=== PATIENT | male | born 1980 | race Caucasian/White ===

== ENCOUNTER 2017-02-06 14:36 | Inpatient (IN) ==
[2017-02-06] MEDS ORDERED: ONDANSETRON 4 MG/2 ML VIAL IV ONE (14:54)
[2017-02-06] MEDS ORDERED: HYDROmorphone 2 MG/ML SYRINGE IV SCH ×2 (15:00→16:30)
[2017-02-06 15:49] LABS: Basophils # (Auto) 0.1 K/mcL (0.0-0.3); Basophils % (Auto) 0.9 % (0.0-2.0); Eosinophils # (Auto) 0.3 K/mcL (0.0-0.7); Eosinophils % (Auto) 1.7 % (0.0-7.0); Granulocytes % (Auto) 71.8 % (38.0-78.0); Lymphocytes % (Auto) 18.3 % (15.5-49.0); Mean Cell Volume 81.6 fL (80.0-100.0); Mean Corpuscular HGB Conc 33.3 g/dL (31.0-36.0); Mean Corpuscular Hemoglobin 27.2 pg (26.0-34.0); Monocytes # (Auto) 1.2 K/mcL (0.1-0.9); Monocytes % (Auto) 7.3 % (1.0-12.0); Platelet Count 334 K/mcL (140-440); RBC 4.41 M/mcL (4.50-5.90); Red Cell Distribution Width 13.2 % (11.5-14.5)
--- NOTE | 2017-02-06 15:50 | Emergency Department Note ---
Lower Extremity Injury HPI <Elizabeth Telles - Last Filed: 02/06/17 17:16> - General Source: patient Mode of arrival: ambulatory Limitations: no limitations <Adilia Sanchez - Last Filed: 02/07/17 11:44> - General Chief Complaint: Extremity Injury, Lower Stated Complaint: right foot infection Time Seen by Provider: 02/06/17 14:39 - History of Present Illness HPI Narrative: 36-year-old male presents with diabetic foot ulcers to the right foot. He was sent here by Dr. Teague's office for labs and possible admit. He was seen here a few weeks ago for the same and at that time his labs were good. He was treated with outpatient antibiotics and followed up with Dr. Teague in his office. Since then it has been getting worse. He is got some blackness around the right fourth toe and redness to the anterior foot that is new and swelling is worse. Also states he is in a lot of pain. Denies fever chills. No nausea , vomiting, or diarrhea. He finished his last oral antibiotic today. States oral antibiotics have not seemed to make any difference and so Dr. Teague wanted him sent here for further evaluation and possible debridement of the foot tomorrow. No numbness or tingling. States he thought that he just bumped his foot on something and that was causing the blackness but he was unsure and Dr. Teague did not think so according to the patient. He denies any other known injury or trauma. (Adilia Sanchez) - Related Data Home Medications Medication Instructions Recorded Confirmed QUEtiapine FUMARATE [Seroquel] 600 mg PO HS 02/06/17 02/06/17 Previous Rx's Medication Instructions Recorded gabapentin 300 mg capsule 300 mg PO TID #90 cap 11/01/16 lisinopril 20 mg tablet 40 mg PO HS #60 tab 11/24/16 hydrocodone 7.5 mg-acetaminophen 1 tab PO TID #90 tab 01/23/17 325 mg tablet insulin glargine 300 unit/mL (1.5 34 unit SUB-Q QHS #2 each 01/23/17 mL) subcutaneous pen simvastatin 40 mg tablet 40 mg PO HS #90 tab 01/23/17 Allergies Allergy/AdvReac Type Severity Reaction Status Date / Time No Known Drug Allergies Allergy Verified 01/30/17 17:39 Review of Systems All systems ED: reviewed and negative except as stated. <Adilia Sanchez - Last Filed: 02/07/17 11:44> Past Medical History - Past Medical History Medical history: Reports: diabetes (poorly controlled), hyperlipidemia, hypertension, other (Diabetic foot ulcers;no history of MRSA. Heart murmur. DIABETIC PERIPHERAL NEUROPATHY; Microalbuminuria.). Denies: coronary artery disease, seizures, thyroid disease Psychiatric history: Reports: PTSD, schizophrenia - Social History smoking status: Never smoker Alcohol use: Reports: Unknown Drug use: Reports: marijuana (occasionally) <Adilia Sanchez - Last Filed: 02/07/17 11:44> Physical Exam - General Limitations: no limitations General appearance: alert, in no apparent distress - Head Head exam: atraumatic, normocephalic, normal inspection - Eye Eye exam: Present: normal appearance. Absent: conjunctival injection - ENT ENT exam: mucous membranes moist - Neck Neck exam: Present: normal inspection. Absent: tenderness, lymphadenopathy - Chest Chest inspection: Present: normal inspection, symmetric chest wall rise - Respiratory Respiratory exam: Present: normal lung sounds bilaterally. Absent: respiratory distress, wheezes, accessory muscle use - Cardiovascular Cardiovascular exam: Present: regular rate, normal heart sounds - Extremities Exam Extremities exam: Present: normal capillary refill. Absent: full ROM (The right anterior foot with 6 cm area of redness and there is also some 1 cm x 1 cm black area to the fourth right toe. Very tender to palpation. The right fifth toe is also red and swollen. Again very tender to palpation. There is no induration or drainage. There is also a 5 cm stage II pressure ulcer to the palmar surface of the right foot) - Neurological Exam Neurological exam: Present: alert, oriented X3. Absent: motor sensory deficit - Psychiatric Psychiatric exam: Present: normal affect, normal mood - Skin Skin exam: Present: warm, dry, intact, normal color, erythema (Please see extremity assessment). Absent: rash, cyanosis, diaphoresis <Adilia Sanchez - Last Filed: 02/07/17 11:44> Course <TellesElizabeth - Last Filed: 02/06/17 17:16> <MarlenAdilia martin - Last Filed: 02/07/17 11:44> Course Narrative: At 1600 care turned over to Elizabeth HERNÁNDEZ (Adilia Sanchez) - Reevaluation(s) Reevaluation #1: He will be admitted by Dr. Barrera and Dr. Teague will be consulted (Elizabeth Telles) Vital Signs Temperature 97.5 F 02/06/17 14:36 Pulse Rate 116 H 02/06/17 14:36 Respiratory Rate 18 02/06/17 14:36 Blood Pressure 102/66 02/06/17 14:36 Pulse Oximetry (%) 97 02/06/17 14:36 Temperature 98.0 F 02/07/17 08:51 Pulse Rate 102 H 02/07/17 08:51 Respiratory Rate 14 02/07/17 08:51 Blood Pressure 132/80 02/07/17 08:51 Pulse Oximetry (%) 93 02/07/17 08:51 Extremity Injury, Lower - Lab Data Result diagrams: 02/06/17 14:59 02/06/17 14:59 <Elizabeth Telles - Last Filed: 02/06/17 17:16> - Lab Data Result diagrams: 02/07/17 06:18 02/07/17 06:18 <Adilia Sanchez - Last Filed: 02/07/17 11:44> - Lab Data Lab Results 02/06/17 02/06/17 02/06/17 Range/Units 14:59 14:59 14:59 WBC 16.3 H (4.5-11.0) K/mcL RBC 4.41 L (4.50-5.90) M/mcL Hgb 12.0 L (13.5-16.5) g/dL Hct 36.0 L (41.0-55.0) % MCV 81.6 (80.0-100.0) fL MCH 27.2 (26.0-34.0) pg MCHC 33.3 (31.0-36.0) g/dL RDW 13.2 (11.5-14.5) % Plt Count 334 (140-440) K/mcL MPV 9.4 (7.4-10.4) fL Gran % 71.8 (38.0-78.0) % Lymph % (Auto) 18.3 (15.5-49.0) % [place] % (Auto) 7.3 (1.0-12.0) % Eos % (Auto) 1.7 (0.0-7.0) % Baso % (Auto) 0.9 (0.0-2.0) % Gran # 11.7 H (1.8-8.0) K/mcL Lymph # (Auto) 3.0 (1.5-4.8) K/mcL [place] # (Auto) 1.2 H (0.1-0.9) K/mcL Eos # (Auto) 0.3 (0.0-0.7) K/mcL Baso # (Auto) 0.1 (0.0-0.3) K/mcL VBG Lactic Acid 1.0 (0.5-2.2) mmol/L Sodium 134 (133-145) mmol/L Potassium 5.0 (3.3-5.1) mmol/L Chloride 95 L (96-108) mmol/L Carbon Dioxide 23 (22-30) mmol/L Anion Gap 16.0 (8-16) BUN 26 H (6-20) mg/dl Creatinine 1.3 H (0.7-1.2) mg/dl GFR Calculation 69 Glucose 208 H (70-105) mg/dL Calcium 10.0 (8.6-10.4) mg/dl Total Bilirubin 0.4 (0.0-1.0) mg/dL AST 12 (0-37) U/l ALT 12 (0-40) U/l Alkaline Phosphatase 75 (39-117) U/L Total Protein 8.7 H (5.9-8.4) gm/dL Albumin 4.2 (3.2-5.2) gm/dL Globulin 4.5 H (2.2-3.7) gm/dL Albumin/Globulin Ratio 0.9 L (1.0-2.3) Disposition Pt seen by CUT TO LENGTH OPERATOR/PA only: Yes <Elizabeth Telles - Last Filed: 02/06/17 17:16> <Adilia Sanchez - Last Filed: 02/07/17 11:44> Clinical Impression: Diabetic foot ulcers Disposition: Xfer As Inpt ([facility]) Condition: Fair
[2017-02-06 16:07] LABS: ALT/SGPT 12 U/l (0-40); Albumin 4.2 gm/dL (3.2-5.2); Albumin/Globulin Ratio 0.9 (1.0-2.3); Alkaline Phosphatase 75 U/L (39-117); Blood Urea Nitrogen 26 mg/dl (6-20)
--- NOTE | 2017-02-06 17:27 | Internal Med History&Physical ---
Medical - H&P: [facility] Patient information: Note initiated : 02/06/17 at 5:24 pm Service Date, if different from initiated Date: [] Patient: Nicholas Teague a 36 y/o M admitted on for Rt Foot Infection. Chief Complaint: [] Chief complaint: ight foot pain and discharge History of present illness: Mr. Teague is a 36 year old M with known history of insulin-dependent diabetes since last 6 years. Patient has been helping his friend move and in the process he twisted his foot on the porch leading a blister on his sOLE. over the next 2 months patient has had frequent discharge and redness and progressive enlarging ulcer on the right foot undersurface. Patient over the last 2 weeks has notedulceration on the dorsum of the right fourth toe There has been significant swelling rednessand pain involving the outer half of the right foot. He was seen at [facility] today and was referred to [facility] ER for admission so he can undergo debridement. During initial evaluation in the ED radha count is 16,300 and creatinine of 1.3. hospitalist service was subsequently consulted. At the time of examination patient is alert oriented. He is in good spirits. He deniesfevers shaking chills drenching sweats. He deniespurulent discharge. He endorses to increasing swelling and tenderness involving his right foot as above. He denies substance abuse. Denies joint painweight loss, diarrhea dysuria cough, productive sputum. REVIEW OF SYSTEMS 10 point review of system was performed and is negative except for one discussed above. Medical - H&P: PMH Medical history: Insulin-dependent type 2 diabetes hyperlipidemia ypertension Chronic pain anxiety disorder neuropathy Pertinent family history: diabetes in aunt and mother Social history: mRSA smoking or alcoholism on disability sister Randa Boone can be reached at [phone] ccasional marijuana Smoking status: Never smoker Have you smoked in the last 12 months: No Drug use: marijuana Alcohol use: none Medical - H&P: Meds Home Medications Medication Instructions Recorded Confirmed Type blood sugar diagnostic strips See Dose Instructions .ROUTE 11/01/16 01/23/17 Rx .MEDSUPPLY #100 each blood-glucose meter kit See Dose Instructions .ROUTE 11/01/16 01/23/17 Rx .MEDSUPPLY #1 each gabapentin 300 mg capsule 300 mg PO TID #90 cap 11/01/16 01/23/17 Rx insulin aspart 100 unit/mL 3 unit SUB-Q TID #10 ml 11/01/16 01/23/17 Rx subcutaneous solution lancets 30 gauge See Dose Instructions .ROUTE 11/01/16 01/23/17 Rx .MEDSUPPLY #100 each quetiapine 300 mg tablet 600 mg PO DAILY 90 Days 11/01/16 01/23/17 Rx lisinopril 20 mg tablet 40 mg PO HS #60 tab 11/24/16 01/23/17 Rx pen needle, diabetic 32 gauge x See Dose Instructions .ROUTE 12/07/16 01/23/17 Rx 5/32" .MEDSUPPLY #100 each hydrocodone 7.5 mg-acetaminophen 1 tab PO TID #90 tab 01/23/17 01/23/17 Rx 325 mg tablet insulin glargine 300 unit/mL (1.5 34 unit SUB-Q QHS #2 each 01/23/17 01/23/17 Rx mL) subcutaneous pen simvastatin 40 mg tablet 40 mg PO HS #90 tab 01/23/17 01/23/17 Rx Amoxicillin/Potassium Clav 875 mg PO Q12H #20 tablet 01/24/17 Rx [Augmentin] Ondansetron HCl [Zofran ODT] 4 mg SL Q4HP PRN #30 tablet 01/30/17 Rx Allergies Allergy/AdvReac Type Severity Reaction Status Date / Time No Known Drug Allergies Allergy Verified 01/30/17 17:39 Medical - H&P: Exam - Constitutional Vitals: Temp Pulse Resp BP Pulse Ox 97.5 F 104 H 16 124/107 96 02/06/17 14:36 02/06/17 17:03 02/06/17 15:42 02/06/17 17:01 02/06/17 17:03 General appearance: average body habitus Exam: lert oriented nonlabored breathing pupils symmetric reactive oral cavity dry no eardischarge Head atraumatic neck no lymphadenopathy S1 and S2 regular rhythm chest clear to auscultation abdomen soft Right lower extremity significant lateral foot erythema and induration along with plantar aspect dime-sized ulceration and also dorsum of fourth toe ulceration with discharge skin no suspicious lesion-extensive tattoos psych alert cooperative neuro nonfocal moving all 4 extremities Medical - H&P: Reslt - Labs CBC & Chem 7: 02/06/17 14:59 02/06/17 14:59 Labs: Short CBC 02/06/17 Range/Units 14:59 WBC 16.3 H (4.5-11.0) K/mcL Hgb 12.0 L (13.5-16.5) g/dL Hct 36.0 L (41.0-55.0) % Plt Count 334 (140-440) K/mcL BMP 02/06/17 14:59 Sodium 134 Potassium 5.0 Chloride 95 L Carbon Dioxide 23 BUN 26 H Creatinine 1.3 H Glucose 208 H Calcium 10.0 Liver Function 02/06/17 Range/Units 14:59 Total Bilirubin 0.4 (0.0-1.0) mg/dL AST 12 (0-37) U/l ALT 12 (0-40) U/l Alkaline Phosphatase 75 (39-117) U/L Albumin 4.2 (3.2-5.2) gm/dL Medical - H&P: A/P (1) Diabetic ulcer of right foot Current visit: Yes Status: Acute * Diabetic right foot ulcer/cellulitis-tart clindamycin ,vancomycin/Rocephin. Podiatry on board. Surgical debridement a.m. mRI to rule outosteomyelitis * Sepsis- secondary to above. White count at 16,000. Cultures pending. ontinue antibiotics * Mild HAMIDA-econdary to above. Continue monitoring. Continue crystalloids * Hyperlipidemia on statin * chronic pain on hydrocodone * dM type II continue basal prandial insulin * anxiety disorder-at baseline. Restart home meds * Full cod plan * nPO after midnight * surgical debridement a.m. by podiatry * sepsis management per guidelines * monitor renal function * pre-existing medical condition management as above high complexity admitted requiring minimum to overnight stay inpatient hospitalization
[2017-02-06] MEDS ORDERED: VANCOMYCIN PER PHARMACY IV SCH (18:01)
[2017-02-06] MEDS ORDERED: MAGNESIUM SULFATE 2 GM/50 ML BAG IV PRN (18:01)
[2017-02-06] MEDS ORDERED: guaiFENesin/CODEINE 10 ML UDC PO PRN (18:01)
[2017-02-06] MEDS ORDERED: POTASSIUM CHLORIDE 20 MEQ PACKET PO PRN (18:01)
[2017-02-06] MEDS ORDERED: ACETAMINOPHEN 1,000 MG/100 ML BOTTLE IV PRN (18:01)
[2017-02-06] MEDS ORDERED: DEXTROSE 50% 50 ML VIAL IV PRN (18:01)
[2017-02-06] MEDS ORDERED: ACETAMINOPHEN 325 MG TABLET PO PRN (18:01)
[2017-02-06] MEDS ORDERED: DEXTROSE 31 GM ORAL.SUSP PO PRN (18:01)
[2017-02-06 19:03] LABS: C-Reactive Protein 9.2 mg/dl (0.0-0.8)
[2017-02-06] MEDS ORDERED: CLINDAMYCIN 600 MG/4 ML VIAL ONE (19:07)
[2017-02-06] MEDS: 0.9 % SODIUM CHLORIDE 1,000 ML IV SCH (19:14)
[2017-02-06] MEDS: CLINDAMYCIN 600 MG in DEXTROSE 5% IN WATER 50 ML IV SCH (19:14)
[2017-02-06] MEDS ORDERED: VANCOMYCIN 2,000 MG in 0.9 % SODIUM CHLORIDE 500 ML IV ONE (19:30)
[2017-02-06] MEDS ORDERED: cefTRIAXone 1 GM VIAL ONE (19:59)
[2017-02-06] MEDS: cefTRIAXone 2 GM in DEXTROSE 5% IN WATER 50 ML IV SCH (20:00)
[2017-02-06] MEDS: HYDROmorphone 2 MG/ML SYRINGE IV PRN ×2 (20:09→23:39)
[2017-02-06] MEDS: SENNOSIDES/DOCUSATE SODIUM 1 TAB TABLET PO SCH (21:11)
[2017-02-06] MEDS: DOCUSATE SODIUM 100 MG CAPSULE PO SCH (21:11)
[2017-02-06] MEDS: HEPARIN 5,000 UNIT/ML VIAL SQ SCH (21:11)
[2017-02-06] MEDS: CYANOCOBALAMIN (VITAMIN B-12) 500 MCG TABLET PO SCH (21:11)
[2017-02-06] MEDS: INSULIN LISPRO 1 UNIT/0.01 ML UNIT SQ SCH (21:24)
[2017-02-06] MEDS: INSULIN GLARGINE, HUMAN 1 UNIT/0.01 ML SQ SCH (21:25)
[2017-02-06] MEDS: 0.9 % SODIUM CHLORIDE 10 ML SYRINGE IV SCH (21:27)
[2017-02-06] MEDS ORDERED: VANCOMYCIN 1 GM VIAL ONE (21:38)
[2017-02-06] MEDS: traZODone HCL 50 MG TABLET PO PRN (23:53)
[2017-02-07] MEDS ORDERED: CLINDAMYCIN 600 MG/4 ML VIAL ONE (02:11)
[2017-02-07] MEDS: CLINDAMYCIN 600 MG in DEXTROSE 5% IN WATER 50 ML IV SCH ×4 (02:11→21:48)
[2017-02-07] MEDS: HYDROmorphone 2 MG/ML SYRINGE IV PRN ×7 (03:38→23:47)
[2017-02-07] MEDS: 0.9 % SODIUM CHLORIDE 1,000 ML IV SCH ×2 (04:08→12:32)
[2017-02-07] MEDS: 0.9 % SODIUM CHLORIDE 10 ML SYRINGE IV SCH ×3 (04:08→21:49)
[2017-02-07] MEDS: INSULIN LISPRO 1 UNIT/0.01 ML UNIT SQ SCH ×4 (06:50→21:44)
[2017-02-07 07:03] LABS: Mean Corpuscular HGB Conc 33.8 g/dL (31.0-36.0); Mean Corpuscular Hemoglobin 27.4 pg (26.0-34.0); Platelet Count 327 K/mcL (140-440); RBC 3.77 M/mcL (4.50-5.90); Red Cell Distribution Width 13.1 % (11.5-14.5)
[2017-02-07 07:20] LABS: ALT/SGPT 11 U/l (0-40); Albumin 3.6 gm/dL (3.2-5.2); Alkaline Phosphatase 63 U/L (39-117); Bilirubin,Direct < 0.2 mg/dL (0.0-0.3); Blood Urea Nitrogen 21 mg/dl (6-20); Gamma Glutamyl Transpeptidase 33 U/L (8-61); Magnesium 2.1 mg/dL (1.6-2.5); Uric Acid 7.3 mg/dL (2.5-8.0)
--- NOTE | 2017-02-07 07:37 | Orthopedic Consult Note ---
History of Present Illness - HPI Patient information: Note initiated : 02/07/17 at 7:35 am Service Date, if different from initiated Date: [] Patient: Nicholas Teague 36 y/o M admitted on 02/06/17 for Rt Foot Infection. Chief Complaint: [] infected right foot Consult date: 02/06/17 Consult reason: other (infection) History of present illness: This information was obtained from the patient The following HPI elements were documented for the patient's wound: Location: Right plantar foot forefoot, Quality: Patient complaint of burning sensation and a little throbbing Severity: On scale of 1 to 10 pain is rated 6/10 currently about 8/10 at worst Duration: blistering and ulcerations have been present since October 2016. Patient has neuropathy and got new shoes which he believes caused "sore" not wearing shoe any longer. walked on tippy toes as long as can remember which causes callus build up. Patient went to [facility] and didn't follow up on appointments Timing: Intermittent 15-20 minutes then goes away usually if been up on foot or swelling Modifying Factors: Improving Factors:Pain medication, crutches. Worsening Factors: walking Complaints and Symptoms This information was obtained from the patient Patient complains of: Neurological: Numbness (Neuropathy), Tingling (Neuropathy), Weakness (Neuropathy ), Pain from Neuropathy (Neuropathy) Cardiovascular (Central/Peripheral): Lower extremity (leg) swelling (unknown), Nocturnal dyspnea (unknown), Chest Pain (every two days PCP aware) Integumentary (Hair/Skin/Nails): Ulcers (bilateral plantar feet), Calluses/ Corns (bilateral feets) Gastrointestinal (GI): Loss of Appetite, Nausea / Vomiting Respiratory: Shortness of Breath (3-4 times a day) Constitutional Symptoms (General Health): Fatigue (c/o lightheaded dizziness) Patient denies complaints or symptoms related to: Musculoskeletal: Deformities, Other Neurological: Abnormal Gait, Loss of Protective Sensation, Paralysis Cardiovascular (Central/Peripheral): Intermittent Claudication, Lower extremity (leg) resting pain Integumentary (Hair/Skin/Nails): Change: Hair, Nails, Skin, Lesions, Lumps, Open Sore Gastrointestinal (GI): Acid Reflux, Bloody Stools, Bowel Incontinence, Change in Bowel Habits, Constipation, Diarrhea, Difficulty Swallowing, Hemorrhoids, Indigestion, Jaundice, Nausea / Vomiting / Diarrhea (N/V/D), Rectal Bleeding, Stomach/abdominal pain, Vomiting of blood, Other Genitourinary () Respiratory: Cough, Wheezing Endocrine: Cold Intolerance, Heat Intolerance, Polydypsia (Excessive Thirst), Polyuria (Excessive Urination) Ear/Nose/Mouth/Throat Constitutional Symptoms (General Health): Chills, Fever, Loss of Appetite, Marked Weight Change, Night Sweats, Unintentional Weight Loss, Weakness, Weight Gain, Other Objective Constitutional Height/Length: 71 in (180.34 cm), Weight: 236.4 lbs (107.45 kgs), BMI: 33, Temperature: 97.6 F (36.44 C), Pulse: 90 bpm, Respiratory Rate: 18 breaths/min , Blood Pressure: 124/78 mmHg. Integumentary (Hair, Skin) Wound #1 Right, Distal, Lateral, Plantar Foot is an acute Ybarra Grade 1 Diabetic Ulcer and has received a status of Not Healed. Subsequent wound encounter measurements are 0.5cm length x 0.2cm width x 1.5cm depth, with an area of 0.1 sq cm and a volume of 0.15 cubic cm. There is a small amount of sero -sanguineous drainage noted which has no odor. The patient reports a wound pain of level 6/10. The wound margin is thickened. Wound bed has 76-100% slough, no granulation; no eschar and no epithelialization present. The wound is deteriorating. The periwound skin exhibited: Induration, Callus, Dry/Scaly, Erythema. The periwound skin did not exhibit: Moist, Maceration. The temperature of the periwound skin is Warm. Periwound skin presents with s/s of infection. Confirmation Description & Treatment Plan is: Signs & Symptoms Present, Systemic Antibiotics Prescribed. Wound #2 Left, Dorsal Second Toe is an acute Ybarra Grade 1 Diabetic Ulcer and has received a status of Not Healed. Subsequent wound encounter measurements are 0.8cm length x 0.8cm width x 0.05cm depth, with an area of 0.64 sq cm and a volume of 0.032 cubic cm. No tunneling has been noted. No sinus tract has been noted. No undermining has been noted. There was no drainage noted. The patient reports a wound pain of level 6/10. The wound margin is well defined. Wound bed has 76-100% slough, no granulation; no eschar and no epithelialization present. There is no change noted in the wound progression. The periwound skin exhibited: Callus, Dry/Scaly, Erythema. The periwound skin did not exhibit: Maceration. The temperature of the periwound skin is Warm. Periwound skin presents with s/s of infection. Confirmation Description & Treatment Plan is: Signs & Symptoms Present, Systemic Antibiotics Prescribed. Wound #3 Right, Dorsal Fourth Toe is an acute Ybarra Grade 1 Diabetic Ulcer and has received a status of Not Healed. Subsequent wound encounter measurements are 0.5cm length x 0.5cm width x 0.1cm depth, with an area of 0.25 sq cm and a volume of 0.025 cubic cm. No tunneling has been noted. No sinus tract has been noted. No undermining has been noted. There is a small amount of serous drainage noted which has no odor. The patient reports a wound pain of level 7/ 10. The wound margin is well defined. Wound bed has 76-100% slough, no granulation; no eschar and no epithelialization present. The wound is deteriorating. The periwound skin moisture is normal. The periwound skin color is normal. The periwound skin exhibited: Excoriation, Induration. The temperature of the periwound skin is Warm. Periwound skin presents with s/s of infection. Confirmation Description & Treatment Plan is: Signs & Symptoms Present, Systemic Antibiotics Prescribed. Wound #4 Right Foot (other distal) is an acute Ybarra Grade 1 Diabetic Ulcer and has received a status of Not Healed. Initial wound encounter measurements are 1cm length x 2.5cm width x 0.05cm depth, with an area of 2.5 sq cm and a volume of 0.125 cubic cm. No tunneling has been noted. No sinus tract has been noted. No undermining has been noted. There was no drainage noted. The patient reports a wound pain of level 6/10. The wound margin is well defined. Wound bed has 76-100% slough, no granulation; no eschar and no epithelialization present. The periwound skin moisture is normal. The periwound skin exhibited: Edema, Excoriation, Induration, Fluctuance, Erythema. The temperature of the periwound skin is WNL. Periwound skin presents with s/s of infection. Confirmation Description & Treatment Plan is: Signs & Symptoms Present, Systemic Antibiotics Prescribed. Patient is not acutely agitated, is very cooperative and currently relaxed Also oriented to person place and time No changes on levels of depression or thoughts of suicide Neurological Monofilament exam reveals 5 out of 10 point sensation, reduction at tips of toes Tendon reflexes for the Achilles remains +1 Minimal to no pain at the percussion of the tarsal tunnel for irritation of the tibial nerve bilateral ankles Vascular The dorsalis pedis and posterior tibial arteries have a 1 out of 4 pulse, monophasic Edema and erythema noted to right foot with purplish discoloration Capillary refill time approximately 5 seconds to hallux at heart level Dermatologic Toenails continue with black spots with general yellowing with subungual debris noted, bilateral nails Abundant callused tissue under the first and fifth metatarsal phalangeal joints on the plantar aspect of bilateral forefeet Skin turgor and texture is atrophied Woud to the forefoot, right - tunnels 2.5 cm with some closure compared to previous visit Musculoskeletal Persistent pain on palpation to previous areas First ray mobility is noted at plus or -3, bilaterally Muscle strength is proximate for a 5 to digits subtalar and ankle joints bilateral with spastic activity Range of motion is limited to the subtalar joint proximally less than 5 HEART Inspection: No cardiac heaves or lifts. Symmetrical expansion with respiration, no other wall motions. Palpation: No thrills appreciated. Point of maximal impulse (PMI) (apical impulse) noted at midclavicular line, in fifth intercostal space. Auscultation: Normal S1 and S2, with regular rate and rhythm. S2 > S1 at the base, S1 > S2 at apex. No splitting of the heart sounds heard. No murmur. No S3 or S4, no friction rub. LUNGS Lungs are clear to auscultation and percussion bilaterally No crackles heard in the lung bases bilaterally Assessment Cellulitis, right feet Ybarra stage 3 wound right foot Onychomycosis, bilateral Onychocryptosis, bilateral Callous, bilateral Diabetic Peripheral neuropathy, bilateal lower extremities Plan Additional Orders: Follow-Up Appointments Other: - admission to hospital Follow-Up Appointments: A follow-up appointment should be scheduled. Additional Information Medication Reconciliation completed and patient declined copy. : Yes 1. Admission to hospital through emergency department 2. IV antibiotics: likely Vancomycin and Zosyn 3. Incision and drainage to right foot planned for 02/07/17 4. Follow-up in clinic following procedure 5. MRI with contrast of right foot to evaluate infection Review of Systems Constitutional: as per HPI Medications and Allergies Home Medications Medication Instructions Recorded Confirmed Type gabapentin 300 mg capsule 300 mg PO TID #90 cap 11/01/16 02/06/17 Rx lisinopril 20 mg tablet 40 mg PO HS #60 tab 11/24/16 02/06/17 Rx hydrocodone 7.5 mg-acetaminophen 1 tab PO TID #90 tab 01/23/17 02/06/17 Rx 325 mg tablet insulin glargine 300 unit/mL (1.5 34 unit SUB-Q QHS #2 each 01/23/17 02/06/17 Rx mL) subcutaneous pen simvastatin 40 mg tablet 40 mg PO HS #90 tab 01/23/17 02/06/17 Rx QUEtiapine FUMARATE [Seroquel] 600 mg PO HS 02/06/17 02/06/17 History Allergies Allergy/AdvReac Type Severity Reaction Status Date / Time No Known Drug Allergies Allergy Verified 01/30/17 17:39
[2017-02-07] MEDS ORDERED: LIDOCAINE HCL/PF 100 MG/5 ML SYRINGE IV ONE (07:45)
[2017-02-07] MEDS ORDERED: PROPOFOL 200 MG/20 ML VIAL IV ONE (07:45)
[2017-02-07] MEDS ORDERED: MIDAZOLAM 5 MG/5 ML VIAL IV ONE (07:45)
[2017-02-07] MEDS ORDERED: ONDANSETRON 4 MG/2 ML VIAL IV ONE (07:45)
[2017-02-07] MEDS ORDERED: fentaNYL 100 MCG/2 ML VIAL IV ONE (07:45)
[2017-02-07] MEDS ORDERED: DEXAMETHASONE 10 MG/ML VIAL IV ONE (07:45)
[2017-02-07] MEDS ORDERED: HYDROmorphone 2 MG/ML SYRINGE IV PRN (08:08)
[2017-02-07] MEDS ORDERED: BENZOCAINE/MENTHOL 1 LOZENGE PO PRN (08:08)
[2017-02-07] MEDS ORDERED: MEPERIDINE 25 MG/ML SYRINGE IV PRN (08:08)
[2017-02-07] MEDS ORDERED: ONDANSETRON 4 MG/2 ML VIAL IV PRN (08:08)
[2017-02-07] MEDS ORDERED: fentaNYL 100 MCG/2 ML VIAL IV PRN (08:08)
[2017-02-07] MEDS ORDERED: ePHEDrine 50 MG/ML AMPUL IV PRN (08:08)
[2017-02-07] MEDS ORDERED: METOPROLOL TARTRATE 5 MG/5 ML VIAL IV PRN (08:08)
[2017-02-07] MEDS ORDERED: diphenhydrAMINE 50 MG/ML VIAL IV PRN (08:08)
[2017-02-07] MEDS ORDERED: FLUMAZENIL 0.1 MG/ML ML IV PRN (08:08)
[2017-02-07] MEDS ORDERED: ATROPINE SULFATE 0.4 MG/ML VIAL IV PRN (08:08)
[2017-02-07] MEDS ORDERED: IPRATROPIUM/ALBUTEROL 3 ML AMPUL.NEB NEB PRN (08:08)
[2017-02-07] MEDS ORDERED: NALOXONE HCL 0.4 MG/ML VIAL IV PRN (08:08)
[2017-02-07] MEDS ORDERED: METHOCARBAMOL 1,000 MG/10 ML VIAL IV PRN (08:08)
[2017-02-07 08:12] LABS: Band Neutrophils % 1 % (0-10); Eosinophils % (Manual) 2 % (0-7); Lymphocytes % 16 % (15-49); Monocytes % (Manual) 6 % (1-12); Platelet Estimate NORMAL (NORMAL); RBC Morphology NORMAL (NORMAL); Segmented Neutrophils % 75 % (38-78)
[2017-02-07] MEDS ORDERED: LACTATED RINGERS 1,000 ML IV SCH (08:15)
[2017-02-07] MEDS: VANCOMYCIN 1,500 MG in 0.9 % SODIUM CHLORIDE 500 ML IV SCH ×2 (08:15→19:23)
--- NOTE | 2017-02-07 08:23 | Brief Operative Note ---
Date of procedure: 02/07/17 Pre-op diagnosis: Cellulitis right foot Post-op diagnosis: same Procedure: Incision and drainage right foot Grafts/Implants: No Anesthesia: GLMA Complications: none Surgeon: Guanaco Teague Estimated blood loss (cc): 50 Specimens Removed/Pathology: other (Culture right foot wound) Condition: stable Disposition: floor
[2017-02-07] MEDS: HEPARIN 5,000 UNIT/ML VIAL SQ SCH ×2 (09:29→21:36)
--- NOTE | 2017-02-07 09:29 | Operative Note ---
DATE OF OPERATION: 02/07/2017 PREOPERATIVE DIAGNOSIS: Cellulitis right foot. POSTOPERATIVE DIAGNOSIS: Cellulitis right foot. PROCEDURE: Incision and drainage right foot. ANESTHESIA: General LMA. COMPLICATIONS: None. ESTIMATED BLOOD LOSS: 50 mL SPECIMEN: Culture of the right foot wound. CONDITION: Stable. DISPOSITION: Floor. PROCEDURE IN DETAIL: The patient was brought to the operating room and placed on the operating table in the supine position. General LMA was initiated. Right lower extremity was prepped and draped in the usual aseptic manner. Culture of the right foot was taken. There was abundant purulent drainage that was expressed from the wound. It was under the right fourth metatarsal. This wound was found to probe to the dorsal aspect of the foot proximal to the right fifth metatarsal phalangeal joint approximately 3 cm in depth. This wound was opened with a #10 blade with 1.5 cm extension on the distal and proximal aspects of the wound. This allowed for additional inspection. There was abundant necrotic tissue and purulent drainage as well, which was excised from the wound. A total of 3 liters of normal saline was used to irrigate under pulse lavage to the wound at all aspects. Digital inspection was performed following the pulse lavage. Any remaining necrotic tissue was removed. The edges of the wound were debrided to fresh bleeding tissue. The distal and proximal incision aspects were closed with a horizontal mattress with 3-0 Nylon and the central portion was left remaining open and packed with quarter-inch packing soaked in Betadine. Postoperative dressings were then applied consisting of 4x4 gauze, ABD, Kerlix and a light compressive Coban. Patient tolerated the anesthesia and procedure well. He was transferred back to the floor with vital signs stable and vascular status intact to his foot. He will resume antibiotic therapy and treatment as an inpatient. [email or web address] Job ID: [id number] Doc ID: [id number] Guanaco Teague DPM
[2017-02-07] MEDS: CYANOCOBALAMIN (VITAMIN B-12) 500 MCG TABLET PO SCH ×2 (10:45→21:43)
[2017-02-07] MEDS: MULTIVIT,THER IRON,CA,FA & MIN 1 TABLET PO SCH (10:45)
[2017-02-07] MEDS: FOLIC ACID 1 MG TABLET PO SCH (10:45)
[2017-02-07] MEDS: cefTRIAXone 2 GM in DEXTROSE 5% IN WATER 50 ML IV SCH (10:46)
[2017-02-07] MEDS: DOCUSATE SODIUM 100 MG CAPSULE PO SCH ×2 (10:46→21:43)
[2017-02-07] MEDS: HYDROcodone/APAP 5/325MG TABLET PO PRN ×4 (10:48→23:48)
[2017-02-07] MEDS ORDERED: HYDROmorphone 2 MG/ML SYRINGE IV ONE (11:25)
--- NOTE | 2017-02-07 12:09 | Internal Med Progress Note ---
Medical - PN: Subj Patient information: Note initiated : 02/07/17 at 12:07 pm Service Date, if different from initiated Date: [] Patient: Nicholas Teague a 36 y/o M admitted on 02/06/17 for Diabetic Right Foot Ulcer/Cellulitis, Sepsis. Chief Complaint: [] Interval history: Mr. Teague is a 36 year old M with known history of insulin-dependent diabetes since last 6 years. Patient has been helping his friend move and in the process he twisted his foot on the porch leading a blister on his sOLE. over the next 2 months patient has had frequent discharge and redness and progressive enlarging ulcer on the right foot undersurface. Patient over the last 2 weeks has notedulceration on the dorsum of the right fourth toe There has been significant swelling rednessand pain involving the outer half of the right foot. He was seen at [facility] today and was referred to [facility] ER for admission so he can undergo debridement. During initial evaluation in the ED radha count is 16,300 and creatinine of 1.3. hospitalist service was subsequently consulted. At the time of examination patient is alert oriented. He is in good spirits. He deniesfevers shaking chills drenching sweats. He deniespurulent discharge. He endorses to increasing swelling and tenderness involving his right foot as above. He denies substance abuse. Denies joint painweight loss, diarrhea dysuria cough, productive sputum. 02/07-patient doing well. No overnight events. Status post incision and drainage right foot by podiatry today. atient was seen postoperatively. Mildly sedated. Complains of significant pain and not responding to 0.5 Dilaudid. Does increase to 0.5-1 every 2 hours along with oral hydrocodone. on diabetic diet. Wound care consulted. White count is 16.5. Stable renal function. Creatinine down to 1 from 1.3 - Constitutional Vitals: Vital Signs Temp Pulse Resp BP Pulse Ox 98.0 F 102 H 14 132/80 93 02/07/17 08:51 02/07/17 08:51 02/07/17 08:51 02/07/17 08:51 02/07/17 08:51 Period Temp Pulse Resp BP Sys/Santoro Pulse Ox Last 24 Hr 98.0 F-99.4 F 84-105 13-21 102-149/46-84 92-99 Intake and Output 02/06/17 02/07/17 02/07/17 21:59 05:59 13:59 Intake Total 104 / 104 804 / 804 900 / 900 Output Total 625 / 625 550 / 550 506 / 506 Balance -521 / -521 254 / 254 394 / 394 Weight 223 lb 223 lb Intake & Output: Intake & Output 02/06/17 02/07/17 02/07/17 21:59 05:59 13:59 Intake Total 104 / 104 804 / 804 900 / 900 Output Total 625 / 625 550 / 550 506 / 506 Balance -521 / -521 254 / 254 394 / 394 Weight 223 lb 223 lb Intake: IV 104 / 104 54 / 54 Cleocin 600 mg In 54 / 54 54 / 54 Dextrose 5% in Water 50 ml @ 100 mls/hr IV Q8H [facility] Rx#:[id number] Rocephin 2 gm In Dextrose 50 / 50 5% in Water 50 ml @ 100 mls/hr IV Q24H [facility] Rx#: [id number] Oral 750 / 750 Other 900 / 900 Output: Void Amount 625 / 625 550 / 550 475 / 475 # of times incontinent of urine Estimated Blood Loss Other: Meal soup & sandwich Percent of Meal Consumed 100% Feeding Ability Independent # Voids 1 General appearance: cooperative, no acute distress Exam: alert oriented nonlabored breathing Nondistended abdomen Right foot postoperative dressing anxious Medical - PN: Obj Da - Labs CBC & Chem 7: 02/07/17 06:18 02/07/17 06:18 Labs: Abnormal Lab Results 02/07/17 02/07/17 02/06/17 06:18 06:18 18:10 WBC 16.5 H RBC 3.77 L Hgb 10.3 L Hct 30.5 L ESR BUN 21 H C-Reactive Protein 9.2 H 02/06/17 18:10 WBC RBC Hgb Hct ESR 103 H BUN C-Reactive Protein Meds: Medications Acetaminophen (Tylenol) 650 mg PO Q4-6HP PRN PRN Reason: PAIN/FEVER > 101 Hydrocodone Bitart/Acetaminophen ([place] 5/325mg) 0 tab PO Q4HP PRN PRN Reason: Pain Last Admin: 02/07/17 10:48 Dose: 2 tab Cyanocobalamin (Vitamin B-12) 1,000 mcg PO BID [facility] Stop: 02/11/17 09:01 Last Admin: 02/07/17 10:45 Dose: 1,000 mcg Dextrose (Dextrose 50%) 0 ml IV UD PRN PRN Reason: Hypoglycemia Diagnostic Test (Pha) (Accu-Chek) 1 each FS ACHS [facility] Last Admin: 02/07/17 11:34 Dose: 1 each Docusate Sodium (Colace) 100 mg PO BID [facility] Last Admin: 02/07/17 10:46 Dose: 100 mg Folic Acid (Folic Acid) 1 mg PO DAILY [facility] Last Admin: 02/07/17 10:45 Dose: 1 mg Glucose (Insta-Glucose) 15 gm PO PRN PRN PRN Reason: Hypoglycemia Guaifenesin/Codeine Phosphate (Robitussin Ac) 10 ml PO Q4HP PRN PRN Reason: Cough Heparin Sodium (Porcine) (Heparin) 5,000 unit SQ Q12 [facility] Last Admin: 02/07/17 09:29 Dose: Not Given Hydromorphone HCl (Dilaudid) 0 mg IV Q2HP PRN PRN Reason: Pain Ceftriaxone Sodium 2 gm/ (Dextrose) 50 mls @ 100 mls/hr IV Q24H [facility] Last Admin: 02/07/17 10:46 Dose: 100 mls/hr Clindamycin Phosphate 600 mg/ (Dextrose) 54 mls @ 100 mls/hr IV Q8H [facility] Last Admin: 02/07/17 07:57 Dose: 100 mls/hr Magnesium Sulfate (Magnesium Sulfate) 2 gm in 50 mls @ 50 mls/hr IV UD PRN PRN Reason: MG = or < 1.7 Sodium Chloride (Sodium Chloride 0.9%) 1,000 mls @ 100 mls/hr IV .Q10H [facility] Last Admin: 02/07/17 04:08 Dose: Not Given Acetaminophen (Ofirmev) 1,000 mg in 100 mls @ 200 mls/hr IV Q6HP PRN PRN Reason: PAIN/FEVER > 101 Last Admin: 02/07/17 09:25 Dose: 200 mls/hr Vancomycin HCl 1,500 mg/ (Sodium Chloride) 500 mls @ 333.3 mls/hr IV Q12H [facility] Last Admin: 02/07/17 08:15 Dose: 333.3 mls/hr Insulin Glargine (Lantus) 34 unit SQ HS [facility] Last Admin: 02/06/17 21:25 Dose: 34 unit Insulin Human Lispro (Humalog) 0 unit SQ ACHS [facility] PRN Reason: Protocol Last Admin: 02/07/17 11:48 Dose: 1 unit Iron Carb/Multivit/[place]/Folic Acid (Multivitamin W/Minerals) 1 tab PO DAILY [facility] Last Admin: 02/07/17 10:45 Dose: 1 tab Ondansetron HCl (Zofran) 4 mg IV Q4-6HP PRN PRN Reason: Nausea And Vomiting Potassium Chloride (Klor-Con) 40 meq PO DAILYP PRN PRN Reason: K+ < 3.5 Senna/Docusate Sodium (Senna Plus Tablet) 1 tab PO HS [facility] Last Admin: 02/06/17 21:11 Dose: 1 tab Sodium Chloride (Saline Flush) 10 ml IV Q8 [facility] Last Admin: 02/07/17 04:08 Dose: Not Given Trazodone HCl (Desyrel) 50 mg PO HSP PRN PRN Reason: Insomnia Last Admin: 02/06/17 23:53 Dose: 50 mg Vancomycin HCl (Vancomycin Per Pharmacy) 1 order IV UD [facility] Medical - PN: A/P - Time Spent With Patient Total time spent is greater than 50% in coordination of care (as documented) at patient's floor/unit and/or counseling patient: 25 - 35 minutes (1) Diabetic ulcer of right foot Status: Acute Assessment and plan: * Diabetic right foot ulcer/cellulitis-ontinue clindamycin ,vancomycin/ Rocephin. Status post I&D by podiatry. awaiting mRI to rule outosteomyelitis * Sepsis- secondary to above. White count at 16.5. Cultures pending. Continue antibiotics * Mild HAMIDA-Secondary to above. improved with crystalloids, creatinine down at 1 * Hyperlipidemia on statin * chronic pain on hydrocodone * dM type II continue basal prandial insulin. blood sugars at goal * anxiety disorder-at baseline. Restart home meds * Full cod plan * Diabetic diet * sepsis management per guidelines * pre-existing medical condition management as above Current Visit: Yes Medical - PN: Qual - VTE Deep Vein Thrombosis/Pulmonary Embolism Present on Admission: No
--- NOTE | 2017-02-07 16:28 | Magnetic Resonance Report ---
CLINICAL INFORMATION: Open wound at the base of the 4th toe. Diabetes. TECHNIQUE: Sagittal, axial, coronal images of the right foot. 10 mL gadovist injected intravenously COMPARISON: Previous CT scan dated 01/30/2017 FINDINGS: CT scan demonstrated cellulitis. A fluid collection was found and the 4th interspace containing gas. Appearance is consistent with abscess Signal abnormality with in the right 4th metatarsal. This involves the mid and distal metatarsal. There is an enhancement. There may be packing material adjacent to the distal right 4th metatarsal. Appearance is consistent with osteomyelitis. Similar signal abnormality is present in the right 4th proximal phalanx. There is amorphous soft tissue density surrounding the 4th metatarsal consistent with cellulitis. This extends to the plantar skin surface and probably represents this patient's known wound. Other metatarsals are normal. No evidence for osteomyelitis. No cortical destruction. 1st through 3rd and 5th digits are negative. IMPRESSION: 1. Findings consistent with osteomyelitis involving the right 4th metatarsal and proximal phalanx 2. Soft tissue abnormality surrounding the distal right 4th metatarsal consistent with cellulitis. Soft tissue abnormality extends the plantar surface consistent with this patient's known wound Interpreted and Authenticated by: Ariel Brady 02/07/17
[2017-02-07] MEDS: SENNOSIDES/DOCUSATE SODIUM 1 TAB TABLET PO SCH (21:43)
[2017-02-07] MEDS: INSULIN GLARGINE, HUMAN 1 UNIT/0.01 ML SQ SCH (21:43)
[2017-02-08] MEDS: 0.9 % SODIUM CHLORIDE 1,000 ML IV SCH ×2 (02:30→10:33)
[2017-02-08] MEDS: HYDROcodone/APAP 5/325MG TABLET PO PRN ×3 (04:04→14:22)
[2017-02-08] MEDS: HYDROmorphone 2 MG/ML SYRINGE IV PRN ×5 (05:30→19:04)
[2017-02-08] MEDS: CLINDAMYCIN 600 MG in DEXTROSE 5% IN WATER 50 ML IV SCH ×3 (05:31→21:35)
[2017-02-08] MEDS: 0.9 % SODIUM CHLORIDE 10 ML SYRINGE IV SCH ×3 (05:35→22:51)
[2017-02-08 06:56] LABS: Mean Cell Volume 80.9 fL (80.0-100.0); Mean Corpuscular HGB Conc 33.9 g/dL (31.0-36.0); Mean Corpuscular Hemoglobin 27.4 pg (26.0-34.0); Platelet Count 321 K/mcL (140-440); RBC 3.81 M/mcL (4.50-5.90); Red Cell Distribution Width 12.9 % (11.5-14.5)
[2017-02-08 07:57] LABS: ALT/SGPT 11 U/l (0-40); Albumin 3.4 gm/dL (3.2-5.2); Albumin/Globulin Ratio 0.8 (1.0-2.3); Alkaline Phosphatase 71 U/L (39-117); Bilirubin,Direct < 0.2 mg/dL (0.0-0.3); Blood Urea Nitrogen 16 mg/dl (6-20); Gamma Glutamyl Transpeptidase 35 U/L (8-61); Magnesium 1.9 mg/dL (1.6-2.5); Uric Acid 6.2 mg/dL (2.5-8.0)
[2017-02-08] MEDS: VANCOMYCIN 1,500 MG in 0.9 % SODIUM CHLORIDE 500 ML IV SCH ×2 (09:19→18:49)
[2017-02-08] MEDS: INSULIN LISPRO 1 UNIT/0.01 ML UNIT SQ SCH ×4 (09:27→20:21)
[2017-02-08] MEDS: HEPARIN 5,000 UNIT/ML VIAL SQ SCH ×2 (09:28→19:53)
[2017-02-08] MEDS: CYANOCOBALAMIN (VITAMIN B-12) 500 MCG TABLET PO SCH ×2 (09:29→19:52)
[2017-02-08] MEDS: DOCUSATE SODIUM 100 MG CAPSULE PO SCH ×2 (09:29→19:52)
[2017-02-08] MEDS: FOLIC ACID 1 MG TABLET PO SCH (09:29)
[2017-02-08] MEDS: MULTIVIT,THER IRON,CA,FA & MIN 1 TABLET PO SCH (09:30)
[2017-02-08 09:49] LABS: Lymphocytes % 18 % (15-49); Monocytes % (Manual) 5 % (1-12); Platelet Estimate NORMAL (NORMAL); RBC Morphology NORMAL (NORMAL); Segmented Neutrophils % 77 % (38-78)
[2017-02-08] MEDS: ONDANSETRON 4 MG/2 ML VIAL IV PRN ×2 (10:18→18:55)
--- NOTE | 2017-02-08 10:57 | Internal Med Progress Note ---
Medical - PN: Subj Patient information: Note initiated : 02/08/17 at 10:53 am Service Date, if different from initiated Date: [] Patient: Nicholas Teague a 36 y/o M admitted on 02/06/17 for Diabetic Right Foot Ulcer/Cellulitis, Sepsis. Chief Complaint: [] Interval history: Mr. Teague is a 36 year old M with known history of insulin-dependent diabetes since last 6 years. Patient has been helping his friend move and in the process he twisted his foot on the porch leading a blister on his sOLE. over the next 2 months patient has had frequent discharge and redness and progressive enlarging ulcer on the right foot undersurface. Patient over the last 2 weeks has notedulceration on the dorsum of the right fourth toe There has been significant swelling rednessand pain involving the outer half of the right foot. He was seen at [employer] office today and was referred to [facility] ER for admission so he can undergo debridement. During initial evaluation in the ED radha count is 16,300 and creatinine of 1.3. hospitalist service was subsequently consulted. At the time of examination patient is alert oriented. He is in good spirits. He deniesfevers shaking chills drenching sweats. He deniespurulent discharge. He endorses to increasing swelling and tenderness involving his right foot as above. He denies substance abuse. Denies joint painweight loss, diarrhea dysuria cough, productive sputum. 02/07-patient doing well. No overnight events. Status post incision and drainage right foot by podiatry today. atient was seen postoperatively. Mildly sedated. Complains of significant pain and not responding to 0.5 Dilaudid. Does increase to 0.5-1 every 2 hours along with oral hydrocodone. on diabetic diet. Wound care consulted. White count is 16.5. Stable renal function. Creatinine down to 1 from 1.3 02/08-- worsening white count at 19,000. 1 culture gram-negative dave. Blood culture gram-positive cocci. Repeat blood cultures pending. Ongoing wound care and broad antibiotic coverage including clindamycin and Rocephin and vancomycin. Pain much improved. renal function normalized. No overnight fever chills or concerns per staff - Constitutional Vitals: Vital Signs Temp Pulse Resp BP Pulse Ox 97.8 F 76 16 117/70 99 02/08/17 06:44 02/08/17 08:26 02/08/17 06:44 02/08/17 06:44 02/08/17 08:26 Period Temp Pulse Resp BP Sys/Santoro Pulse Ox Last 24 Hr 97.8 F-98.9 F 76-93 12-20 117-148/70-91 98-99 Intake and Output 02/07/17 02/08/17 02/08/17 21:59 05:59 13:59 Intake Total 2394 / 2394 1404 / 1404 Output Total 2510 / 2510 975 / 975 Balance -116 / -116 429 / 429 Weight 227 lb Intake & Output: Intake & Output 02/07/17 02/08/17 02/08/17 21:59 05:59 13:59 Intake Total 2394 / 2394 1404 / 1404 Output Total 2510 / 2510 975 / 975 Balance -116 / -116 429 / 429 Weight 227 lb Intake: IV 554 / 554 1054 / 1054 Sodium Chloride 0.9% 1, 1000 / 1000 000 ml @ 100 mls/hr IV . Q10H [facility] Rx#:[id number] Cleocin 600 mg In 54 / 54 54 / 54 Dextrose 5% in Water 50 ml @ 100 mls/hr IV Q8H [facility] Rx#:[id number] Vancomycin 1,500 mg In 500 / 500 Sodium Chloride 0.9% 500 ml @ 333.3 mls/hr IV Q12H [facility] Rx#:[id number] Oral 1840 / 1840 350 / 350 Output: Void Amount 2510 / 2510 975 / 975 Other: Meal Dinner Percent of Meal Consumed 100% # Voids 1 1 General appearance: cooperative, no acute distress Exam: alert oriented nonlabored breathing Nondistended abdomen Anxious right foot covered in sterile dressing Medical - PN: Obj Da - Labs CBC & Chem 7: 02/08/17 06:08 02/08/17 06:08 Labs: Abnormal Lab Results 02/08/17 02/08/17 02/08/17 06:08 06:08 06:08 WBC 19.3 H RBC 3.81 L Hgb 10.4 L Hct 30.9 L ESR BUN Glucose 222 H C-Reactive Protein Globulin 4.2 H Albumin/Globulin Ratio 0.8 L Vancomycin Trough 12.0 H 02/07/17 02/07/17 02/06/17 06:18 06:18 18:10 WBC 16.5 H RBC 3.77 L Hgb 10.3 L Hct 30.5 L ESR BUN 21 H Glucose C-Reactive Protein 9.2 H Globulin Albumin/Globulin Ratio Vancomycin Trough 02/06/17 18:10 WBC RBC Hgb Hct ESR 103 H BUN Glucose C-Reactive Protein Globulin Albumin/Globulin Ratio Vancomycin Trough Meds: Medications Acetaminophen (Tylenol) 650 mg PO Q4-6HP PRN PRN Reason: PAIN/FEVER > 101 Hydrocodone Bitart/Acetaminophen ([place] 5/325mg) 0 tab PO Q4HP PRN PRN Reason: Pain Last Admin: 02/08/17 09:17 Dose: 2 tab Cyanocobalamin (Vitamin B-12) 1,000 mcg PO BID [facility] Stop: 02/11/17 09:01 Last Admin: 02/08/17 09:29 Dose: 1,000 mcg Dextrose (Dextrose 50%) 0 ml IV UD PRN PRN Reason: Hypoglycemia Diagnostic Test (Pha) (Accu-Chek) 1 each FS ACHS [facility] Last Admin: 02/08/17 09:27 Dose: 1 each Docusate Sodium (Colace) 100 mg PO BID [facility] Last Admin: 02/08/17 09:29 Dose: 100 mg Folic Acid (Folic Acid) 1 mg PO DAILY [facility] Last Admin: 02/08/17 09:29 Dose: 1 mg Glucose (Insta-Glucose) 15 gm PO PRN PRN PRN Reason: Hypoglycemia Guaifenesin/Codeine Phosphate (Robitussin Ac) 10 ml PO Q4HP PRN PRN Reason: Cough Heparin Sodium (Porcine) (Heparin) 5,000 unit SQ Q12 [facility] Last Admin: 02/08/17 09:28 Dose: 5,000 unit Hydromorphone HCl (Dilaudid) 0 mg IV Q2HP PRN PRN Reason: Pain Last Admin: 02/08/17 10:27 Dose: 1 mg Ceftriaxone Sodium 2 gm/ (Dextrose) 50 mls @ 100 mls/hr IV Q24H [facility] Last Admin: 02/07/17 10:46 Dose: 100 mls/hr Clindamycin Phosphate 600 mg/ (Dextrose) 54 mls @ 100 mls/hr IV Q8H [facility] Last Admin: 02/08/17 05:31 Dose: 100 mls/hr Magnesium Sulfate (Magnesium Sulfate) 2 gm in 50 mls @ 50 mls/hr IV UD PRN PRN Reason: MG = or < 1.7 Sodium Chloride (Sodium Chloride 0.9%) 1,000 mls @ 100 mls/hr IV .Q10H [facility] Last Admin: 02/08/17 10:33 Dose: Not Given Acetaminophen (Ofirmev) 1,000 mg in 100 mls @ 200 mls/hr IV Q6HP PRN PRN Reason: PAIN/FEVER > 101 Last Admin: 02/07/17 09:25 Dose: 200 mls/hr Vancomycin HCl 1,500 mg/ (Sodium Chloride) 500 mls @ 333.3 mls/hr IV Q12H [facility] Last Admin: 02/08/17 09:19 Dose: 333.3 mls/hr Insulin Glargine (Lantus) 34 unit SQ [facility] Last Admin: 02/07/17 21:43 Dose: 34 unit Insulin Human Lispro (Humalog) 0 unit SQ [facility] PRN Reason: Protocol Last Admin: 02/08/17 09:27 Dose: 2 unit Iron Carb/Multivit/Sample Color Maker/Folic Acid (Multivitamin W/Minerals) 1 tab PO DAILY [facility] Last Admin: 02/08/17 09:30 Dose: 1 tab Ondansetron HCl (Zofran) 4 mg IV Q4-6HP PRN PRN Reason: Nausea And Vomiting Last Admin: 02/08/17 10:18 Dose: 4 mg Potassium Chloride (Klor-Con) 40 meq PO DAILYP PRN PRN Reason: K+ < 3.5 Senna/Docusate Sodium (Senna Plus Tablet) 1 tab PO HS [facility] Last Admin: 02/07/17 21:43 Dose: 1 tab Sodium Chloride (Saline Flush) 10 ml IV Q8 [facility] Last Admin: 02/08/17 05:35 Dose: Not Given Trazodone HCl (Desyrel) 50 mg PO HSP PRN PRN Reason: Insomnia Last Admin: 02/06/17 23:53 Dose: 50 mg Vancomycin HCl (Vancomycin Per Pharmacy) 1 order IV [facility] Medical - PN: A/P - Time Spent With Patient Total time spent is greater than 50% in coordination of care (as documented) at patient's floor/unit and/or counseling patient: 25 - 35 minutes (1) Diabetic ulcer of right foot Status: Acute Assessment and plan: * Gram-positive bacteremia-continue vancomycin. Surveillance cultures pending. Target 14 days antibiotics. pplace PICC line * Diabetic right foot ulcer/cellulitis/osteomyelitis right fourth metatarsal and proximal phalanx-polymicrobial culture including 3 different gram-negative bacilli. Continue clindamycin ,vancomycin/Rocephin. Status post I&D by podiatry. * Sepsis- secondary to above. White count at 16.5. Cultures pending. Continue antibiotics * Mild HAMIDA-Secondary to above. creatinine normalized * Hyperlipidemia on statin * chronic pain on hydrocodone * dM type II continue basal prandial insulin. blood sugars at goal * anxiety disorder-at baseline * Full cod plan * broad antibiotic coverage * ID consult * PICC line * wound care * Diabetic diet Current Visit: Yes Medical - PN: Qual - VTE Deep Vein Thrombosis/Pulmonary Embolism Present on Admission: No
[2017-02-08 11:13] LABS: Amphetamine Screen,Urine NONE DETECTED (NONDETECTED); Cocaine Screen,Urine NONE DETECTED (NONDETECTED); Oxycodone, Urine Screen NONE DETECTED (NONDETECTED)
[2017-02-08] MEDS: cefTRIAXone 2 GM in DEXTROSE 5% IN WATER 50 ML IV SCH (11:55)
[2017-02-08 13:10] LABS: Benzodiazepines Screen,Urine SUSPECT POSITIVE (NONDETECTED); Opiate Screen,Urine SUSPECT POSITIVE (NONDETECTED)
[2017-02-08] MEDS: HYDROCODONE/APAP 7.5/325MG TABLET PO PRN ×3 (18:48→23:45)
[2017-02-08] MEDS: SENNOSIDES/DOCUSATE SODIUM 1 TAB TABLET PO SCH (19:51)
[2017-02-08] MEDS: traZODone HCL 50 MG TABLET PO PRN (19:52)
[2017-02-08] MEDS: INSULIN GLARGINE, HUMAN 1 UNIT/0.01 ML SQ SCH (20:21)
[2017-02-09] MEDS: HYDROCODONE/APAP 7.5/325MG TABLET PO PRN ×2 (03:46→09:43)
[2017-02-09] MEDS: 0.9 % SODIUM CHLORIDE 1,000 ML IV SCH ×3 (03:49→16:37)
[2017-02-09] MEDS: HYDROmorphone 2 MG/ML SYRINGE IV PRN ×5 (04:30→13:52)
[2017-02-09] MEDS: CLINDAMYCIN 600 MG in DEXTROSE 5% IN WATER 50 ML IV SCH (05:47)
[2017-02-09] MEDS: 0.9 % SODIUM CHLORIDE 10 ML SYRINGE IV SCH ×3 (05:47→22:08)
[2017-02-09 06:29] LABS: Mean Cell Volume 80.9 fL (80.0-100.0); Mean Corpuscular HGB Conc 33.9 g/dL (31.0-36.0); Mean Corpuscular Hemoglobin 27.4 pg (26.0-34.0); Platelet Count 313 K/mcL (140-440); RBC 3.64 M/mcL (4.50-5.90); Red Cell Distribution Width 12.8 % (11.5-14.5)
[2017-02-09 06:54] LABS: ALT/SGPT 10 U/l (0-40); Albumin 3.4 gm/dL (3.2-5.2); Alkaline Phosphatase 99 U/L (39-117); Bilirubin,Direct < 0.2 mg/dL (0.0-0.3); Blood Urea Nitrogen 12 mg/dl (6-20); Gamma Glutamyl Transpeptidase 35 U/L (8-61); Magnesium 1.7 mg/dL (1.6-2.5); Uric Acid 5.4 mg/dL (2.5-8.0)
[2017-02-09] MEDS: VANCOMYCIN 1,500 MG in 0.9 % SODIUM CHLORIDE 500 ML IV SCH ×2 (07:32→18:56)
[2017-02-09 07:51] LABS: Eosinophils % (Manual) 2 % (0-7); Lymphocytes % 22 % (15-49); Monocytes % (Manual) 4 % (1-12); Platelet Estimate NORMAL (NORMAL); RBC Morphology NORMAL (NORMAL); Segmented Neutrophils % 72 % (38-78)
[2017-02-09] MEDS: INSULIN LISPRO 1 UNIT/0.01 ML UNIT SQ SCH ×4 (08:11→20:52)
[2017-02-09] MEDS: HEPARIN 5,000 UNIT/ML VIAL SQ SCH ×2 (08:56→22:16)
[2017-02-09] MEDS: CYANOCOBALAMIN (VITAMIN B-12) 500 MCG TABLET PO SCH ×2 (08:57→22:16)
[2017-02-09] MEDS: MULTIVIT,THER IRON,CA,FA & MIN 1 TABLET PO SCH (08:57)
[2017-02-09] MEDS: FOLIC ACID 1 MG TABLET PO SCH (08:57)
[2017-02-09] MEDS: DOCUSATE SODIUM 100 MG CAPSULE PO SCH ×2 (08:57→22:15)
[2017-02-09] MEDS: cefTRIAXone 2 GM in DEXTROSE 5% IN WATER 50 ML IV SCH (09:43)
--- NOTE | 2017-02-09 11:05 | Internal Med Progress Note ---
Medical - PN: Subj Patient information: Note initiated : 02/09/17 at 11:02 am Service Date, if different from initiated Date: [] Patient: Nicholas Teague a 36 y/o M admitted on 02/06/17 for Diabetic Right Foot Ulcer/Cellulitis, Sepsis. Chief Complaint: [] Interval history: Mr. Teague is a 36 year old M with known history of insulin-dependent diabetes since last 6 years. Patient has been helping his friend move and in the process he twisted his foot on the porch leading a blister on his sOLE. over the next 2 months patient has had frequent discharge and redness and progressive enlarging ulcer on the right foot undersurface. Patient over the last 2 weeks has notedulceration on the dorsum of the right fourth toe There has been significant swelling rednessand pain involving the outer half of the right foot. 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 During initial evaluation in the ED radha count is 16,300 and creatinine of 1.3. hospitalist service was subsequently consulted. At the time of examination patient is alert oriented. He is in good spirits. He deniesfevers shaking chills drenching sweats. He deniespurulent discharge. He endorses to increasing swelling and tenderness involving his right foot as above. He denies substance abuse. Denies joint painweight loss, diarrhea dysuria cough, productive sputum. 02/07-patient doing well. No overnight events. Status post incision and drainage right foot by podiatry today. atient was seen postoperatively. Mildly sedated. Complains of significant pain and not responding to 0.5 Dilaudid. Does increase to 0.5-1 every 2 hours along with oral hydrocodone. on diabetic diet. Wound care consulted. White count is 16.5. Stable renal function. Creatinine down to 1 from 1.3 02/08-- worsening white count at 19,000. 1 culture gram-negative dave. Blood culture gram-positive cocci. Repeat blood cultures pending. Ongoing wound care and broad antibiotic coverage including clindamycin and Rocephin and vancomycin. Pain much improved. renal function normalized. No overnight fever chills or concerns per staff 02/09- enterococci/roup B streptococcus/staph aureus on wound culture. Continue vancomycin/rocephin. DC clindamycin. Anticipate discharge in 24 hours on IV vancomycin and Rocephin for 6 weeks in light of osteomyelitis. Wound care ongoing. Patient refused PICC line. Logistically to be difficult to continue 6 weeks antibiotics however despite efforts patient continues to refuse placement of PICC line to facilitate IV antibiotics. no overnight fever chills.white count down from 19.3-12.5. enal function remarkably improved. - Constitutional Vitals: Vital Signs Temp Pulse Resp BP Pulse Ox 97.6 F 84 14 124/80 97 02/09/17 08:00 02/09/17 04:00 02/09/17 08:00 02/09/17 08:00 02/09/17 08:00 Period Temp Pulse Resp BP Sys/Santoro Pulse Ox Last 24 Hr 96.8 F-98.4 F 84-85 14-16 120-135/78-87 95-100 Intake and Output 02/08/17 02/09/17 02/09/17 21:59 05:59 13:59 Intake Total 1194 / 1194 304 / 304 840 / 840 Output Total 1225 / 1225 375 / 375 200 / 200 Balance -31 / -31 -71 / -71 640 / 640 Weight 228 lb 228 lb Patient Weight 02/10/17 05:59 Weight 228 lb Intake & Output: Intake & Output 02/08/17 02/09/17 02/09/17 21:59 05:59 13:59 Intake Total 1194 / 1194 304 / 304 840 / 840 Output Total 1225 / 1225 375 / 375 200 / 200 Balance -31 / -31 -71 / -71 640 / 640 Weight 228 lb 228 lb Intake: IV 554 / 554 54 / 54 Cleocin 600 mg In 54 / 54 54 / 54 Dextrose 5% in Water 50 ml @ 100 mls/hr IV Q8H [facility] Rx#:[id number] Vancomycin 1,500 mg In 500 / 500 Sodium Chloride 0.9% 500 ml @ 333.3 mls/hr IV Q12H [facility] Rx#:[id number] Oral 640 / 640 250 / 250 840 / 840 Output: Void Amount 325 / 325 375 / 375 Emesis 900 / 900 200 / 200 Other: Meal Breakfast Percent of Meal Consumed 100% # Voids 1 General appearance: cooperative, no acute distress Exam: alert oriented nonlabored breathing nxious Nondistended abdomen Medical - PN: Obj Da - Labs CBC & Chem 7: 02/09/17 05:09 02/09/17 05:09 Labs: Abnormal Lab Results 02/09/17 02/09/17 02/08/17 05:09 05:09 10:17 WBC 12.5 H RBC 3.64 L Hgb 10.0 L Hct 29.4 L ESR BUN Glucose 131 H Lactate Dehydrogenase 428 H C-Reactive Protein Globulin Albumin/Globulin Ratio Triglycerides 174 H Vancomycin Trough Urine Opiates Screen Suspect positive A U Benzodiazepines Scrn Suspect positive A U Marijuana (THC) Screen Suspect positive A 02/08/17 02/08/17 02/08/17 06:08 06:08 06:08 WBC 19.3 H RBC 3.81 L Hgb 10.4 L Hct 30.9 L ESR BUN Glucose 222 H Lactate Dehydrogenase C-Reactive Protein Globulin 4.2 H Albumin/Globulin Ratio 0.8 L Triglycerides Vancomycin Trough 12.0 H Urine Opiates Screen U Benzodiazepines Scrn U Marijuana (THC) Screen 02/07/17 02/07/17 02/06/17 06:18 06:18 18:10 WBC 16.5 H RBC 3.77 L Hgb 10.3 L Hct 30.5 L ESR BUN 21 H Glucose Lactate Dehydrogenase C-Reactive Protein 9.2 H Globulin Albumin/Globulin Ratio Triglycerides Vancomycin Trough Urine Opiates Screen U Benzodiazepines Scrn U Marijuana (THC) Screen 02/06/17 18:10 WBC RBC Hgb Hct ESR 103 H BUN Glucose Lactate Dehydrogenase C-Reactive Protein Globulin Albumin/Globulin Ratio Triglycerides Vancomycin Trough Urine Opiates Screen U Benzodiazepines Scrn U Marijuana (THC) Screen Meds: Medications Acetaminophen (Tylenol) 650 mg PO Q4-6HP PRN PRN Reason: PAIN/FEVER > 101 Hydrocodone Bitart/Acetaminophen ([place] 7.5/325mg) 1 - 2 tab PO Q4-6HP PRN PRN Reason: Pain Last Admin: 02/09/17 09:43 Dose: 1 tab Cyanocobalamin (Vitamin B-12) 1,000 mcg PO BID [facility] Stop: 02/11/17 09:01 Last Admin: 02/09/17 08:57 Dose: 1,000 mcg Dextrose (Dextrose 50%) 0 ml IV UD PRN PRN Reason: Hypoglycemia Diagnostic Test (Pha) (Accu-Chek) 1 each FS ACHS [facility] Last Admin: 02/09/17 08:10 Dose: 1 each Docusate Sodium (Colace) 100 mg PO BID [facility] Last Admin: 02/09/17 08:57 Dose: 100 mg Folic Acid (Folic Acid) 1 mg PO DAILY [facility] Last Admin: 02/09/17 08:57 Dose: 1 mg Glucose (Insta-Glucose) 15 gm PO PRN PRN PRN Reason: Hypoglycemia Guaifenesin/Codeine Phosphate (Robitussin Ac) 10 ml PO Q4HP PRN PRN Reason: Cough Heparin Sodium (Porcine) (Heparin) 5,000 unit SQ Q12 [facility] Last Admin: 02/09/17 08:56 Dose: 5,000 unit Hydromorphone HCl (Dilaudid) 0 mg IV Q2HP PRN PRN Reason: Pain Last Admin: 02/09/17 09:48 Dose: 1 mg Ceftriaxone Sodium 2 gm/ (Dextrose) 50 mls @ 100 mls/hr IV Q24H [facility] Last Admin: 02/09/17 09:43 Dose: 100 mls/hr Clindamycin Phosphate 600 mg/ (Dextrose) 54 mls @ 100 mls/hr IV Q8H [facility] Last Admin: 02/09/17 05:47 Dose: 100 mls/hr Magnesium Sulfate (Magnesium Sulfate) 2 gm in 50 mls @ 50 mls/hr IV UD PRN PRN Reason: MG = or < 1.7 Sodium Chloride (Sodium Chloride 0.9%) 1,000 mls @ 100 mls/hr IV .Q10H [facility] Last Admin: 02/09/17 07:58 Dose: 100 mls/hr Acetaminophen (Ofirmev) 1,000 mg in 100 mls @ 200 mls/hr IV Q6HP PRN PRN Reason: PAIN/FEVER > 101 Last Admin: 02/07/17 09:25 Dose: 200 mls/hr Vancomycin HCl 1,500 mg/ (Sodium Chloride) 500 mls @ 333.3 mls/hr IV Q12H [facility] Last Admin: 02/09/17 07:32 Dose: 333.3 mls/hr Insulin Glargine (Lantus) 34 unit SQ [facility] Last Admin: 02/08/17 20:21 Dose: 34 unit Insulin Human Lispro (Humalog) 0 unit SQ [facility] PRN Reason: Protocol Last Admin: 02/09/17 08:11 Dose: Not Given Iron Carb/Multivit/[employer]/Folic Acid (Multivitamin W/Minerals) 1 tab PO DAILY [facility] Last Admin: 02/09/17 08:57 Dose: 1 tab Ondansetron HCl (Zofran) 4 mg IV Q4-6HP PRN PRN Reason: Nausea And Vomiting Last Admin: 02/08/17 18:55 Dose: 4 mg Potassium Chloride (Klor-Con) 40 meq PO DAILYP PRN PRN Reason: K+ < 3.5 Senna/Docusate Sodium (Senna Plus Tablet) 1 tab PO HS [facility] Last Admin: 02/08/17 19:51 Dose: 1 tab Sodium Chloride (Saline Flush) 10 ml IV Q8 [facility] Last Admin: 02/09/17 05:47 Dose: Not Given Trazodone HCl (Desyrel) 50 mg PO HSP PRN PRN Reason: Insomnia Last Admin: 02/08/17 19:52 Dose: 50 mg Vancomycin HCl (Vancomycin Per Pharmacy) 1 order IV UD [facility] Medical - PN: A/P - Time Spent With Patient Total time spent is greater than 50% in coordination of care (as documented) at patient's floor/unit and/or counseling patient: 25 - 35 minutes (1) Diabetic ulcer of right foot Status: Acute Assessment and plan: * Diabetic right foot ulcer/cellulitis/osteomyelitis involving right fourth metatarsal and proximal phalanx-polymicrobial culture- staph aureus/group B streptococcus/enterococci and GNR. Status post I&D by podiatry. wound care consulted. * Sepsis- Secondary to above. White count at own from 19.3 to 12.5. * Gram-positive bacteremia- coag negative staph. Likely contaminant * Mild HAMIDA- Rsolved * Hyperlipidemia on statin * chronic pain on hydrocodone * DM type II continue basal prandial insulin. blood sugars at goal * anxiety disorder-at baseline * Full code plan * DC clindamycin * ID consult as outpatient on discharge * Wound care * 6 weeks antibiotics including vancomycin/Rocephin * optimize diabetes management Current Visit: Yes Medical - PN: Qual - VTE Deep Vein Thrombosis/Pulmonary Embolism Present on Admission: No
[2017-02-09] MEDS: ONDANSETRON 4 MG/2 ML VIAL IV PRN ×3 (11:49→22:08)
--- NOTE | 2017-02-09 12:00 | General Surgery Progress Note ---
Subjective Narrative: Note initiated : 02/09/17 at 11:51 am Service Date, if different from initiated Date: [] Patient: Nicholas Teague 36 y/o M admitted on 02/06/17 for Diabetic Right Foot Ulcer/Cellulitis, Sepsis. Chief Complaint: [] Objective Temp Pulse Resp BP Pulse Ox 97.6 F 84 14 124/80 97 02/09/17 08:00 02/09/17 04:00 02/09/17 08:00 02/09/17 08:00 02/09/17 08:00 - Additional Data Intake & Output - Last 24 hours: Intake & Output 02/07/17 02/08/17 02/09/17 02/10/17 05:59 05:59 05:59 05:59 Intake Total 2258 / 2258 5542 / 5542 3342 / 3342 840 / 840 Output Total 1175 / 1175 4591 / 4591 1600 / 1600 200 / 200 Balance 1083 / 1083 951 / 951 1742 / 1742 640 / 640 Weight 223 lb 227 lb 228 lb 228 lb - Labs 02/09/17 05:09 02/09/17 05:09 Diabetes panel 02/09/17 Range/Units 05:09 Sodium 141 (133-145) mmol/L Potassium 4.2 (3.3-5.1) mmol/L Chloride 104 (96-108) mmol/L Carbon Dioxide 26 (22-30) mmol/L BUN 12 (6-20) mg/dl Creatinine 0.8 (0.7-1.2) mg/dl Glucose 131 H (70-105) mg/dL Calcium 9.4 (8.6-10.4) mg/dl AST 8 (0-37) U/l ALT 10 (0-40) U/l Alkaline Phosphatase 99 (39-117) U/L Total Protein 6.9 (5.9-8.4) gm/dL Albumin 3.4 (3.2-5.2) gm/dL Triglycerides 174 H (<150) mg/dl Calcium panel 02/09/17 Range/Units 05:09 Calcium 9.4 (8.6-10.4) mg/dl Phosphorus 3.4 (2.7-4.5) mg/dL Albumin 3.4 (3.2-5.2) gm/dL Pituitary panel 02/09/17 Range/Units 05:09 Sodium 141 (133-145) mmol/L Potassium 4.2 (3.3-5.1) mmol/L Chloride 104 (96-108) mmol/L Carbon Dioxide 26 (22-30) mmol/L BUN 12 (6-20) mg/dl Creatinine 0.8 (0.7-1.2) mg/dl Glucose 131 H (70-105) mg/dL Calcium 9.4 (8.6-10.4) mg/dl Adrenal panel 02/09/17 Range/Units 05:09 Sodium 141 (133-145) mmol/L Potassium 4.2 (3.3-5.1) mmol/L Chloride 104 (96-108) mmol/L Carbon Dioxide 26 (22-30) mmol/L BUN 12 (6-20) mg/dl Creatinine 0.8 (0.7-1.2) mg/dl Glucose 131 H (70-105) mg/dL Calcium 9.4 (8.6-10.4) mg/dl Total Bilirubin 0.2 (0.0-1.0) mg/dL AST 8 (0-37) U/l ALT 10 (0-40) U/l Alkaline Phosphatase 99 (39-117) U/L Total Protein 6.9 (5.9-8.4) gm/dL Albumin 3.4 (3.2-5.2) gm/dL Assessment and Plan (1) Diabetic foot ulcer Status: Acute Current Visit: No - Narrative A/P Narrative: 02/08/2017: This is a 36/M with a DFU of the right dorsal foot who recently underwent an I&D on 02/07/2017. I was asked by Dr. Teague to see the patient s/ p surgery for wound care management until his discharge from [facility]. Currently, the wound is covered and was dressed in the O.R. by Dr. Teague. The wound was irrigated and debrided down to fresh tissue. Packing used included Betadine soaked rope, reinforced with AMD gauze, Kerlix, Coban and DAYNA wrap. The dressing is clean, dry, and intact at this time. His medical needs and co- morbidities are being followed and managed by the hospitalist at this time. - Time Spent With Patient Total time spent is greater than 50% in coordination of care (as documented) at patient's floor/unit and/or counseling patient:
[2017-02-09] MEDS: INSULIN GLARGINE, HUMAN 1 UNIT/0.01 ML SQ SCH (20:51)
[2017-02-09] MEDS: SENNOSIDES/DOCUSATE SODIUM 1 TAB TABLET PO SCH (22:16)
[2017-02-09] MEDS: traZODone HCL 50 MG TABLET PO PRN (22:43)
[2017-02-10] MEDS: 0.9 % SODIUM CHLORIDE 1,000 ML IV SCH ×2 (00:14→12:15)
[2017-02-10] MEDS: 0.9 % SODIUM CHLORIDE 10 ML SYRINGE IV SCH ×2 (04:45→13:02)
[2017-02-10] MEDS: VANCOMYCIN 1,500 MG in 0.9 % SODIUM CHLORIDE 500 ML IV SCH ×2 (07:00→19:07)
[2017-02-10 07:39] LABS: Mean Corpuscular HGB Conc 33.9 g/dL (31.0-36.0); Mean Corpuscular Hemoglobin 27.4 pg (26.0-34.0); Platelet Count 326 K/mcL (140-440); RBC 3.75 M/mcL (4.50-5.90); Red Cell Distribution Width 12.9 % (11.5-14.5)
[2017-02-10] MEDS: INSULIN LISPRO 1 UNIT/0.01 ML UNIT SQ SCH ×4 (08:09→20:31)
[2017-02-10 08:22] LABS: ALT/SGPT 9 U/l (0-40); Albumin 3.5 gm/dL (3.2-5.2); Alkaline Phosphatase 70 U/L (39-117); Bilirubin,Direct < 0.2 mg/dL (0.0-0.3); Blood Urea Nitrogen 11 mg/dl (6-20); Gamma Glutamyl Transpeptidase 38 U/L (8-61); Magnesium 1.7 mg/dL (1.6-2.5); Uric Acid 5.5 mg/dL (2.5-8.0)
[2017-02-10] MEDS: PIPERACILLIN SODIUM/TAZOBACTAM 3.375 GM in DEXTROSE 5% IN WATER 50 ML IV SCH ×3 (09:07→17:31)
[2017-02-10 09:09] LABS: Band Neutrophils % 1 % (0-10); Basophils % (Manual) 1 % (0-2); Eosinophils % (Manual) 1 % (0-7); Lymphocytes % 16 % (15-49); Monocytes % (Manual) 5 % (1-12); Platelet Estimate NORMAL (NORMAL); RBC Morphology NORMAL (NORMAL); Segmented Neutrophils % 76 % (38-78)
[2017-02-10] MEDS: DOCUSATE SODIUM 100 MG CAPSULE PO SCH ×2 (09:10→20:30)
[2017-02-10] MEDS: HYDROCODONE/APAP 7.5/325MG TABLET PO PRN ×2 (09:10→20:28)
[2017-02-10] MEDS: FOLIC ACID 1 MG TABLET PO SCH (09:10)
[2017-02-10] MEDS: MULTIVIT,THER IRON,CA,FA & MIN 1 TABLET PO SCH (09:11)
[2017-02-10] MEDS: HEPARIN 5,000 UNIT/ML VIAL SQ SCH ×2 (09:11→20:32)
[2017-02-10] MEDS: CYANOCOBALAMIN (VITAMIN B-12) 500 MCG TABLET PO SCH ×2 (09:16→20:31)
--- NOTE | 2017-02-10 10:01 | Internal Med Progress Note ---
Medical - PN: Subj Patient information: Note initiated : 02/10/17 at 9:58 am Service Date, if different from initiated Date: [] Patient: Nicholas Teague a 36 y/o M admitted on 02/06/17 for Diabetic Right Foot Ulcer/Cellulitis, Sepsis. Chief Complaint: [] Interval history: Mr. Teague is a 36 year old M with known history of insulin-dependent diabetes since last 6 years. Patient has been helping his friend move and in the process he twisted his foot on the porch leading a blister on his sOLE. over the next 2 months patient has had frequent discharge and redness and progressive enlarging ulcer on the right foot undersurface. Patient over the last 2 weeks has notedulceration on the dorsum of the right fourth toe There has been significant swelling rednessand pain involving the outer half of the right foot. 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 During initial evaluation in the ED radha count is 16,300 and creatinine of 1.3. hospitalist service was subsequently consulted. At the time of examination patient is alert oriented. He is in good spirits. He deniesfevers shaking chills drenching sweats. He deniespurulent discharge. He endorses to increasing swelling and tenderness involving his right foot as above. He denies substance abuse. Denies joint painweight loss, diarrhea dysuria cough, productive sputum. 02/07-patient doing well. No overnight events. Status post incision and drainage right foot by podiatry today. atient was seen postoperatively. Mildly sedated. Complains of significant pain and not responding to 0.5 Dilaudid. Does increase to 0.5-1 every 2 hours along with oral hydrocodone. on diabetic diet. Wound care consulted. White count is 16.5. Stable renal function. Creatinine down to 1 from 1.3 02/08-- worsening white count at 19,000. 1 culture gram-negative dave. Blood culture gram-positive cocci. Repeat blood cultures pending. Ongoing wound care and broad antibiotic coverage including clindamycin and Rocephin and vancomycin. Pain much improved. renal function normalized. No overnight fever chills or concerns per staff 02/09- enterococci/roup B streptococcus/staph aureus on wound culture. Continue vancomycin/rocephin. DC clindamycin. Anticipate discharge in 24 hours on IV vancomycin and Rocephin for 6 weeks in light of osteomyelitis. Wound care ongoing. Patient refused PICC line. Logistically to be difficult to continue 6 weeks antibiotics however despite efforts patient continues to refuse placement of PICC line to facilitate IV antibiotics. no overnight fever chills.white count down from 19.3-12.5. enal function remarkably improved. 02/10- polymicrobial cultures including's enterococci/stapf/group B streptococcus and multiple GNR. Await sensitivities. Continue Zosyn and vancomycin. wound nurse expressed concerns about foul-smelling discharge. atient will require long-term antibiotic in light of osteomyelitis however until cellulitis and underlyingsoft tissue inflammation improves patient be a high risk discharge. I anticipate additional 48-72 hours hospitalization and IV antibiotics to facilitate adequate healing. He will also need ID consult once sensitivities resulted. White count uptrending at 13.5. o overnight fever chills. Complains of significant pain and nausea - Constitutional Vitals: Vital Signs Temp Pulse Resp BP Pulse Ox 97.3 F 100 H 20 159/85 99 02/10/17 07:25 02/10/17 04:00 02/10/17 07:25 02/10/17 07:25 02/10/17 07:25 Period Temp Pulse Resp BP Sys/Santoro Pulse Ox Last 24 Hr 96.9 F-98.8 F 92-100 14-20 130-166/70-90 97-99 Intake and Output 02/09/17 02/10/17 02/10/17 21:59 05:59 13:59 Intake Total 1000 / 1000 1050 / 1050 180 / 180 Output Total 550 / 550 250 / 250 Balance 450 / 450 800 / 800 180 / 180 Weight 230 lb Intake & Output: Intake & Output 02/09/17 02/10/17 02/10/17 21:59 05:59 13:59 Intake Total 1000 / 1000 1050 / 1050 180 / 180 Output Total 550 / 550 250 / 250 Balance 450 / 450 800 / 800 180 / 180 Weight 230 lb Intake: IV 1000 / 1000 500 / 500 Sodium Chloride 0.9% 1, 1000 / 1000 000 ml @ 100 mls/hr IV . Q10H [facility] Rx#:[id number] Vancomycin 1,500 mg In 500 / 500 Sodium Chloride 0.9% 500 ml @ 333.3 mls/hr IV Q12H [facility] Rx#:[id number] Oral 0 / 0 550 / 550 180 / 180 Output: Void Amount 350 / 350 250 / 250 Emesis 200 / 200 Other: Meal Breakfast Percent of Meal Consumed 75% Feeding Ability Independent General appearance: cooperative, no acute distress Exam: alert oriented Anxious nonlabored breathing no significant lymphedema right foot covered in dressing Medical - PN: Obj Da - Labs CBC & Chem 7: 02/10/17 06:12 02/10/17 06:12 Labs: Abnormal Lab Results 02/10/17 02/10/17 02/09/17 06:12 06:12 05:09 WBC 13.5 H RBC 3.75 L Hgb 10.3 L Hct 30.4 L Glucose 164 H 131 H Lactate Dehydrogenase 428 H Globulin Albumin/Globulin Ratio Triglycerides 163 H 174 H Vancomycin Trough Urine Opiates Screen U Benzodiazepines Scrn U Marijuana (THC) Screen 02/09/17 02/08/17 02/08/17 05:09 10:17 06:08 WBC 12.5 H RBC 3.64 L Hgb 10.0 L Hct 29.4 L Glucose Lactate Dehydrogenase Globulin Albumin/Globulin Ratio Triglycerides Vancomycin Trough 12.0 H Urine Opiates Screen Suspect positive A U Benzodiazepines Scrn Suspect positive A U Marijuana (THC) Screen Suspect positive A 02/08/17 02/08/17 06:08 06:08 WBC 19.3 H RBC 3.81 L Hgb 10.4 L Hct 30.9 L Glucose 222 H Lactate Dehydrogenase Globulin 4.2 H Albumin/Globulin Ratio 0.8 L Triglycerides Vancomycin Trough Urine Opiates Screen U Benzodiazepines Scrn U Marijuana (THC) Screen Meds: Medications Acetaminophen (Tylenol) 650 mg PO Q4-6HP PRN PRN Reason: PAIN/FEVER > 101 Hydrocodone Bitart/Acetaminophen ([place] 7.5/325mg) 1 - 2 tab PO Q4-6HP PRN PRN Reason: Pain Last Admin: 02/10/17 09:10 Dose: 1 tab Cyanocobalamin (Vitamin B-12) 1,000 mcg PO BID [facility] Stop: 02/11/17 09:01 Last Admin: 02/10/17 09:16 Dose: 1,000 mcg Dextrose (Dextrose 50%) 0 ml IV UD PRN PRN Reason: Hypoglycemia Diagnostic Test (Pha) (Accu-Chek) 1 each FS ACHS [facility] Last Admin: 02/10/17 08:09 Dose: Not Given Docusate Sodium (Colace) 100 mg PO BID [facility] Last Admin: 02/10/17 09:10 Dose: 100 mg Folic Acid (Folic Acid) 1 mg PO DAILY [facility] Last Admin: 02/10/17 09:10 Dose: 1 mg Glucose (Insta-Glucose) 15 gm PO PRN PRN PRN Reason: Hypoglycemia Guaifenesin/Codeine Phosphate (Robitussin Ac) 10 ml PO Q4HP PRN PRN Reason: Cough Heparin Sodium (Porcine) (Heparin) 5,000 unit SQ Q12 [facility] Last Admin: 02/10/17 09:11 Dose: 5,000 unit Magnesium Sulfate (Magnesium Sulfate) 2 gm in 50 mls @ 50 mls/hr IV UD PRN PRN Reason: MG = or < 1.7 Sodium Chloride (Sodium Chloride 0.9%) 1,000 mls @ 100 mls/hr IV .Q10H [facility] Last Admin: 02/10/17 00:14 Dose: 100 mls/hr Acetaminophen (Ofirmev) 1,000 mg in 100 mls @ 200 mls/hr IV Q6HP PRN PRN Reason: PAIN/FEVER > 101 Last Admin: 02/07/17 09:25 Dose: 200 mls/hr Vancomycin HCl 1,500 mg/ (Sodium Chloride) 500 mls @ 333.3 mls/hr IV Q12H [facility] Last Admin: 02/10/17 07:00 Dose: 150 mls/hr Piperacillin Sod/Tazobactam (Sod 3.375 gm/ Dextrose) 50 mls @ 100 mls/hr IV Q6H [facility] Last Admin: 02/10/17 09:07 Dose: 100 mls/hr Insulin Glargine (Lantus) 34 unit SQ HS [facility] Last Admin: 02/09/17 20:51 Dose: 34 unit Insulin Human Lispro (Humalog) 0 unit SQ [facility] PRN Reason: Protocol Last Admin: 02/10/17 08:09 Dose: Not Given Iron Carb/Multivit/Field Software [employer]/Folic Acid (Multivitamin W/Minerals) 1 tab PO DAILY [facility] Last Admin: 02/10/17 09:11 Dose: 1 tab Ondansetron HCl (Zofran) 4 mg IV Q4-6HP PRN PRN Reason: Nausea And Vomiting Last Admin: 02/09/17 22:08 Dose: 4 mg Potassium Chloride (Klor-Con) 40 meq PO DAILYP PRN PRN Reason: K+ < 3.5 Senna/Docusate Sodium (Senna Plus Tablet) 1 tab PO HS [facility] Last Admin: 02/09/17 22:16 Dose: Not Given Sodium Chloride (Saline Flush) 10 ml IV Q8 [facility] Last Admin: 02/10/17 04:45 Dose: Not Given Trazodone HCl (Desyrel) 50 mg PO HSP PRN PRN Reason: Insomnia Last Admin: 02/09/17 22:43 Dose: 50 mg Vancomycin HCl (Vancomycin Per Pharmacy) 1 order IV UD [facility] Medical - PN: A/P - Time Spent With Patient Total time spent is greater than 50% in coordination of care (as documented) at patient's floor/unit and/or counseling patient: 25 - 35 minutes (1) Diabetic ulcer of right foot Status: Acute Assessment and plan: * Diabetic right foot ulcer/cellulitis- ontinue wound care and antibiotics * Osteomyelitis Right fourth metatarsal and proximal phalanx -polymicrobial culture- staph aureus/group B streptococcus/enterococci and GNR. Status post I& D by podiatry. wound care ongoing. Continue Zosyn and vancomycin. Consider ID consult once sensitivities resulted * Sepsis- Secondary to above. White count at own from 19.3 to 12.5. * Mild HAMIDA- Rsolved * Hyperlipidemia on statin * chronic pain on hydrocodone * DM type II continue basal prandial insulin. blood sugars at goal * anxiety disorder-at baseline * Full code plan * Zosyn/vancomycin. Target 6 weeks minimum antibiotics coverage * ID consult nce sensitivities resulted * Wound care * optimize diabetes management Current Visit: Yes Medical - PN: Qual - VTE Deep Vein Thrombosis/Pulmonary Embolism Present on Admission: No
[2017-02-10] MEDS ORDERED: GENTAMICIN SULFATE 40 MG, CLINDAMYCIN 300 MG, BACITRACIN 25,000 UNIT in SODIUM CHLORIDE... IRR SCH (12:00)
[2017-02-10] MEDS: IBUPROFEN 200 MG TABLET PO PRN (12:11)
[2017-02-10] MEDS: SENNOSIDES/DOCUSATE SODIUM 1 TAB TABLET PO SCH (20:30)
[2017-02-10] MEDS: INSULIN GLARGINE, HUMAN 1 UNIT/0.01 ML SQ SCH (20:31)
[2017-02-10] MEDS: traZODone HCL 50 MG TABLET PO PRN (21:40)
[2017-02-11] MEDS: PIPERACILLIN SODIUM/TAZOBACTAM 3.375 GM in DEXTROSE 5% IN WATER 50 ML IV SCH ×5 (00:22→23:55)
[2017-02-11] MEDS: 0.9 % SODIUM CHLORIDE 10 ML SYRINGE IV SCH ×4 (01:22→21:03)
[2017-02-11] MEDS: 0.9 % SODIUM CHLORIDE 1,000 ML IV SCH ×3 (02:14→16:40)
[2017-02-11 06:13] LABS: Mean Cell Volume 81.5 fL (80.0-100.0); Mean Corpuscular HGB Conc 33.8 g/dL (31.0-36.0); Mean Corpuscular Hemoglobin 27.5 pg (26.0-34.0); Platelet Count 314 K/mcL (140-440); RBC 3.58 M/mcL (4.50-5.90); Red Cell Distribution Width 13.2 % (11.5-14.5)
[2017-02-11 06:36] LABS: ALT/SGPT 10 U/l (0-40); Albumin 3.3 gm/dL (3.2-5.2); Alkaline Phosphatase 59 U/L (39-117); Bilirubin,Direct < 0.2 mg/dL (0.0-0.3); Blood Urea Nitrogen 12 mg/dl (6-20); Gamma Glutamyl Transpeptidase 34 U/L (8-61); Magnesium 1.7 mg/dL (1.6-2.5); Uric Acid 3.5 mg/dL (2.5-8.0)
[2017-02-11 07:59] LABS: Lymphocytes % 28 % (15-49); Monocytes % (Manual) 10 % (1-12); Platelet Estimate NORMAL (NORMAL); RBC Morphology NORMAL (NORMAL); Segmented Neutrophils % 62 % (38-78)
[2017-02-11] MEDS: HYDROCODONE/APAP 7.5/325MG TABLET PO PRN ×4 (08:15→23:01)
[2017-02-11] MEDS: VANCOMYCIN 2,000 MG in 0.9 % SODIUM CHLORIDE 500 ML IV SCH ×2 (08:17→19:37)
[2017-02-11] MEDS: INSULIN LISPRO 1 UNIT/0.01 ML UNIT SQ SCH ×4 (08:26→21:03)
[2017-02-11] MEDS: GENTAMICIN SULFATE 40 MG, CLINDAMYCIN 300 MG, BACITRACIN 25,000 UNIT in SODIUM CHLORIDE... IRR SCH ×2 (10:00→20:57)
[2017-02-11] MEDS: FOLIC ACID 1 MG TABLET PO SCH (10:41)
[2017-02-11] MEDS: HEPARIN 5,000 UNIT/ML VIAL SQ SCH ×2 (10:41→21:03)
[2017-02-11] MEDS: CYANOCOBALAMIN (VITAMIN B-12) 500 MCG TABLET PO SCH (10:41)
[2017-02-11] MEDS: DOCUSATE SODIUM 100 MG CAPSULE PO SCH ×2 (10:42→20:56)
[2017-02-11] MEDS: MULTIVIT,THER IRON,CA,FA & MIN 1 TABLET PO SCH (10:42)
[2017-02-11] MEDS: IBUPROFEN 200 MG TABLET PO PRN (10:48)
--- NOTE | 2017-02-11 11:12 | General Surgery Progress Note ---
Subjective Narrative: Note initiated : 02/11/17 at 11:08 am Service Date, if different from initiated Date: [] Patient: Nicholas Teague 36 y/o M admitted on 02/06/17 for Diabetic Right Foot Ulcer/Cellulitis, Sepsis. Chief Complaint: [] Objective Temp Pulse Resp BP Pulse Ox 98.1 F 70 16 167/86 98 02/11/17 07:07 02/11/17 04:00 02/11/17 07:07 02/11/17 07:07 02/11/17 07:07 AVSS. No changes ADRIENNE. L/E. Open dry wound over dorsal aspect of Left 2 toe PIPJ , Expends to sub q tissue. Post surgical wound Right plantar , CDI. No odor. Dry adherent eschar over dorsal aspect of foot. Patient on GCB wet dry dressings ulcer site Right plantar BID. - Additional Data Intake & Output - Last 24 hours: Intake & Output 02/09/17 02/10/17 02/11/17 02/12/17 05:59 05:59 05:59 05:59 Intake Total 3342 / 3342 3390 / 3390 3010 / 3010 Output Total 1600 / 1600 1850 / 1850 600 / 600 275 / 275 Balance 1742 / 1742 1540 / 1540 2410 / 2410 -275 / -275 Weight 228 lb 230 lb 231 lb - Labs 02/11/17 05:30 02/11/17 05:30 Diabetes panel 02/11/17 Range/Units 05:30 Sodium 139 (133-145) mmol/L Potassium 3.5 (3.3-5.1) mmol/L Chloride 103 (96-108) mmol/L Carbon Dioxide 25 (22-30) mmol/L BUN 12 (6-20) mg/dl Creatinine 0.7 (0.7-1.2) mg/dl Glucose 128 H (70-105) mg/dL Calcium 8.9 (8.6-10.4) mg/dl AST 10 (0-37) U/l ALT 10 (0-40) U/l Alkaline Phosphatase 59 (39-117) U/L Total Protein 6.5 (5.9-8.4) gm/dL Albumin 3.3 (3.2-5.2) gm/dL Triglycerides 138 (<150) mg/dl Calcium panel 02/11/17 Range/Units 05:30 Calcium 8.9 (8.6-10.4) mg/dl Phosphorus 3.3 (2.7-4.5) mg/dL Albumin 3.3 (3.2-5.2) gm/dL Pituitary panel 02/11/17 Range/Units 05:30 Sodium 139 (133-145) mmol/L Potassium 3.5 (3.3-5.1) mmol/L Chloride 103 (96-108) mmol/L Carbon Dioxide 25 (22-30) mmol/L BUN 12 (6-20) mg/dl Creatinine 0.7 (0.7-1.2) mg/dl Glucose 128 H (70-105) mg/dL Calcium 8.9 (8.6-10.4) mg/dl Adrenal panel 02/11/17 Range/Units 05:30 Sodium 139 (133-145) mmol/L Potassium 3.5 (3.3-5.1) mmol/L Chloride 103 (96-108) mmol/L Carbon Dioxide 25 (22-30) mmol/L BUN 12 (6-20) mg/dl Creatinine 0.7 (0.7-1.2) mg/dl Glucose 128 H (70-105) mg/dL Calcium 8.9 (8.6-10.4) mg/dl Total Bilirubin 0.3 (0.0-1.0) mg/dL AST 10 (0-37) U/l ALT 10 (0-40) U/l Alkaline Phosphatase 59 (39-117) U/L Total Protein 6.5 (5.9-8.4) gm/dL Albumin 3.3 (3.2-5.2) gm/dL Assessment and Plan - Narrative A/P Narrative: Assessment: Ongoing wound care . Was called by nurse to see patient. Consult requested by Dr. Espino, Hospitalist. Plan: Continue wound care orders for right foot. Mepilex bordered foam dressing over Left 2 nd toe wound. Change bi weekly and / or replace if it falls off. - Time Spent With Patient Total time spent is greater than 50% in coordination of care (as documented) at patient's floor/unit and/or counseling patient: 15 - 24 minutes (PATIENT SEEN WITH BRAD Orta
--- NOTE | 2017-02-11 11:57 | Internal Med Progress Note ---
Medical - PN: Subj Patient information: Note initiated : 02/11/17 at 11:56 am Patient: Nicholas Teague a 36 y/o M admitted on 02/06/17 for Diabetic Right Foot Ulcer/Cellulitis, Sepsis. Interval history: February 06, 2017: History of present illness: Mr. Teague is a 36 year old M with known history of insulin-dependent diabetes since last 6 years. Patient has been helping his friend move and in the process he twisted his foot on the porch leading a blister on his sOLE. over the next 2 months patient has had frequent discharge and redness and progressive enlarging ulcer on the right foot undersurface. Patient over the last 2 weeks has noted ulceration on the dorsum of the right fourth toe There has been significant swelling redness and pain involving the outer half of the right foot. He was seen at alcohol rubber office today and was referred to [facility] ER for admission so he can undergo debridement. During initial evaluation in the ED radha count is 16,300 and creatinine of 1.3. hospitalist service was subsequently consulted. At the time of examination patient is alert oriented. He is in good spirits. He denies fevers shaking chills drenching sweats. He denies purulent discharge. He endorses to increasing swelling and tenderness involving his right foot as above. He denies substance abuse. Denies joint painweight loss, diarrhea dysuria cough, productive sputum. 02/07-patient doing well. No overnight events. Status post incision and drainage right foot by podiatry today. atient was seen postoperatively. Mildly sedated. Complains of significant pain and not responding to 0.5 Dilaudid. Does increase to 0.5-1 every 2 hours along with oral hydrocodone. on diabetic diet. Wound care consulted. White count is 16.5. Stable renal function. Creatinine down to 1 from 1.3 02/08-- worsening white count at 19,000. 1 culture gram-negative dave. Blood culture gram-positive cocci. Repeat blood cultures pending. Ongoing wound care and broad antibiotic coverage including clindamycin and Rocephin and vancomycin. Pain much improved. renal function normalized. No overnight fever chills or concerns per staff 02/09- enterococci/group B streptococcus/staph aureus on wound culture. Continue vancomycin/rocephin. DC clindamycin. Anticipate discharge in 24 hours on IV vancomycin and Rocephin for 6 weeks in light of osteomyelitis. Wound care ongoing. Patient refused PICC line. Logistically to be difficult to continue 6 weeks antibiotics however despite efforts patient continues to refuse placement of PICC line to facilitate IV antibiotics. no overnight fever chills.white count down from 19.3-12.5. enal function remarkably improved. 02/10- polymicrobial cultures including's enterococci/staph/group B streptococcus and multiple GNR. Await sensitivities. Continue Zosyn and vancomycin. wound nurse expressed concerns about foul-smelling discharge. patient will require long-term antibiotic in light of osteomyelitis however until cellulitis and underlying soft tissue inflammation improves patient be a high risk discharge. I anticipate additional 48-72 hours hospitalization and IV antibiotics to facilitate adequate healing. He will also need ID consult once sensitivities resulted. White count uptrending at 13.5. no overnight fever chills. Complains of significant pain and nausea. February 11: Today, the patient says he is feeling relatively well. He says his pain is fairly well controlled, and is currently at 6 out of 10. He denies fever chills , chest pain or shortness of breath, GI or symptoms. He continues to decline a PICC line. He does not like the idea of a long-term IV. He is hoping to be discharged to home, rather than to a wound care facility. - Constitutional Vitals: Vital Signs Temp Pulse Resp BP Pulse Ox 97.6 F 70 20 151/79 98 02/11/17 11:30 02/11/17 04:00 02/11/17 11:30 02/11/17 11:30 02/11/17 11:30 Period Temp Pulse Resp BP Sys/Santoro Pulse Ox Last 24 Hr 97.6 F-98.9 F 70-75 16-20 135-167/76-97 96-100 Intake and Output 02/10/17 02/11/17 02/11/17 21:59 05:59 13:59 Intake Total 50 / 50 1000 / 1000 Output Total 600 / 600 275 / 275 Balance 50 / 50 400 / 400 -275 / -275 Weight 231 lb Intake & Output: Intake & Output 02/10/17 02/11/17 02/11/17 21:59 05:59 13:59 Intake Total 50 / 50 1000 / 1000 Output Total 600 / 600 275 / 275 Balance 50 / 50 400 / 400 -275 / -275 Weight 231 lb Intake: IV 50 / 50 550 / 550 Zosyn 3.375 gm In 50 / 50 50 / 50 Dextrose 5% in Water 50 ml @ 100 mls/hr IV Q6H RAYNA Rx#:[id number] Vancomycin 1,500 mg In 500 / 500 Sodium Chloride 0.9% 500 ml @ 333.3 mls/hr IV Q12H [facility]AYNA Rx#:[id number] Oral 450 / 450 Output: Void Amount 600 / 600 275 / 275 Other: Meal Dinner Percent of Meal Consumed 75% On exam, he is a well-developed well-nourished young man in no acute distress. Neck is supple without obvious lymphadenopathy or JVD. Cardiac exam shows regular rate and rhythm. Lungs are clear to auscultation. Abdomen is soft and nontender. Extremities: Left foot appears normal. Right foot is heavily bandaged, and recently changed, so not undressed again. Neurologic exam is grossly nonfocal. Medical - PN: Obj Da - Labs CBC & Chem 7: 02/11/17 05:30 02/11/17 05:30 Labs: Abnormal Lab Results 02/11/17 02/11/17 02/11/17 05:30 05:30 05:30 WBC 12.8 H RBC 3.58 L Hgb 9.9 L Hct 29.2 L Glucose 128 H Lactate Dehydrogenase Triglycerides Vancomycin Trough 12.0 H Urine Opiates Screen U Benzodiazepines Scrn U Marijuana (THC) Screen 02/10/17 02/10/17 02/09/17 06:12 06:12 05:09 WBC 13.5 H RBC 3.75 L Hgb 10.3 L Hct 30.4 L Glucose 164 H 131 H Lactate Dehydrogenase 428 H Triglycerides 163 H 174 H Vancomycin Trough Urine Opiates Screen U Benzodiazepines Scrn U Marijuana (THC) Screen 02/09/17 02/08/17 05:09 10:17 WBC 12.5 H RBC 3.64 L Hgb 10.0 L Hct 29.4 L Glucose Lactate Dehydrogenase Triglycerides Vancomycin Trough Urine Opiates Screen Suspect positive A U Benzodiazepines Scrn Suspect positive A U Marijuana (THC) Screen Suspect positive A February 07: Wound culture: Is growing Citrobacter fundi, Morganella morganii, Klebsiella oxytoca, Staphylococcus aureus, strep agalactiae group B, enterococcus. All organisms except staff are sensitive to meropenem, aztreonam, cefepime, ceftriaxone, ciprofloxacin, gentamicin, Levaquin, tetracycline, Bactrim, Zosyn. Staphylococcus is sensitive to all antibiotics tested, including amoxicillin and meropenem. Next Blood cultures are negative so far. February 06: Foot MRI: Consistent with osteomyelitis involving the right fourth metatarsal and proximal phalanx. Soft tissue abnormality consistent with cellulitis. Meds: Medications Acetaminophen (Tylenol) 650 mg PO Q4-6HP PRN PRN Reason: PAIN/FEVER > 101 Hydrocodone Bitart/Acetaminophen ([place] 7.5/325mg) 1 - 2 tab PO Q4-6HP PRN PRN Reason: Pain Last Admin: 02/11/17 08:15 Dose: 2 tab Dextrose (Dextrose 50%) 0 ml IV UD PRN PRN Reason: Hypoglycemia Diagnostic Test (Pha) (Accu-Chek) 1 each FS ACHS [facility] Last Admin: 02/11/17 08:18 Dose: 1 each Docusate Sodium (Colace) 100 mg PO BID [facility] Last Admin: 02/11/17 10:42 Dose: 100 mg Folic Acid (Folic Acid) 1 mg PO DAILY [facility] Last Admin: 02/11/17 10:41 Dose: 1 mg Glucose (Insta-Glucose) 15 gm PO PRN PRN PRN Reason: Hypoglycemia Guaifenesin/Codeine Phosphate (Robitussin Ac) 10 ml PO Q4HP PRN PRN Reason: Cough Heparin Sodium (Porcine) (Heparin) 5,000 unit SQ Q12 [facility] Last Admin: 02/11/17 10:41 Dose: 5,000 unit Magnesium Sulfate (Magnesium Sulfate) 2 gm in 50 mls @ 50 mls/hr IV UD PRN PRN Reason: MG = or < 1.7 Sodium Chloride (Sodium Chloride 0.9%) 1,000 mls @ 100 mls/hr IV .Q10H [facility] Last Admin: 02/11/17 02:14 Dose: Not Given Acetaminophen (Ofirmev) 1,000 mg in 100 mls @ 200 mls/hr IV Q6HP PRN PRN Reason: PAIN/FEVER > 101 Last Admin: 02/07/17 09:25 Dose: 200 mls/hr Piperacillin Sod/Tazobactam (Sod 3.375 gm/ Dextrose) 50 mls @ 100 mls/hr IV Q6H [facility] Last Admin: 02/11/17 05:44 Dose: 100 mls/hr Gentamicin Sulfate 40 mg/Clindamycin Phosphate 300 mg/Bacitracin 25,000 unit/ Sodium Chloride 503 mls @ 0 mls/hr IRR Q12H [facility] PRN Reason: As Directed Vancomycin HCl 2,000 mg/ (Sodium Chloride) 500 mls @ 333.3 mls/hr IV Q12H [facility] Last Admin: 02/11/17 08:17 Dose: 333.3 mls/hr Ibuprofen (Motrin) 400 mg PO Q4HP PRN PRN Reason: Pain Last Admin: 02/11/17 10:48 Dose: 400 mg Insulin Glargine (Lantus) 34 unit SQ [facility] Last Admin: 02/10/17 20:31 Dose: 34 unit Insulin Human Lispro (Humalog) 0 unit SQ [facility] PRN Reason: Protocol Last Admin: 02/11/17 08:26 Dose: Not Given Iron Carb/Multivit/Compliance Examiner/Folic Acid (Multivitamin W/Minerals) 1 tab PO DAILY [facility] Last Admin: 02/11/17 10:42 Dose: 1 tab Ondansetron HCl (Zofran) 4 mg IV Q4-6HP PRN PRN Reason: Nausea And Vomiting Last Admin: 02/09/17 22:08 Dose: 4 mg Potassium Chloride (Klor-Con) 40 meq PO DAILYP PRN PRN Reason: K+ < 3.5 Senna/Docusate Sodium (Senna Plus Tablet) 1 tab PO [facility] Last Admin: 02/10/17 20:30 Dose: 1 tab Sodium Chloride (Saline Flush) 10 ml IV Q8 [facility] Last Admin: 02/11/17 05:10 Dose: Not Given Trazodone HCl (Desyrel) 50 mg PO [facility] PRN PRN Reason: Insomnia Last Admin: 02/10/17 21:40 Dose: 50 mg Vancomycin HCl (Vancomycin Per Pharmacy) 1 order IV UD [facility] Medical - PN: A/P - Time Spent With Patient Total time spent is greater than 50% in coordination of care (as documented) at patient's floor/unit and/or counseling patient: 25 - 35 minutes - Narrative A/P Narrative: #1. Diabetic right foot ulcer/cellulitis- continue wound care and antibiotics. * #2. Osteomyelitis. * Right fourth metatarsal and proximal phalanx -polymicrobial culture- staph aureus/group B streptococcus/enterococci and GNR. Status post I&D by podiatry. * -wound care ongoing. Continue Zosyn and vancomycin. Consider ID consult . It looks like all organisms would be sensitive to meropenem/ertapenem. Perhaps he could be discharged to outpatient IV antibiotics with once a day Invanz. #3. Sepsis- Secondary to above. White count at own from 19.3 to 12.5. Resolving. * #4. Mild HAMIDA- Resolved * #5. Hyperlipidemia on statin. * #6. Chronic pain * -Controlled on hydrocodone * #7.DM type II continue basal prandial insulin. blood sugars at goal. * #8. Anxiety disorder-at baseline * #9. Full code * #10. DVT prophylaxis: Subcu heparin. Approximately 30 minutes was spent today, reviewing the patient's chart and test results, interviewing and examining him, and reviewing plan of care with Dr. quintana. Medical - PN: Qual - VTE Deep Vein Thrombosis/Pulmonary Embolism Present on Admission: No
[2017-02-11] MEDS: VANCOMYCIN 1,500 MG in 0.9 % SODIUM CHLORIDE 500 ML IV SCH (15:21)
[2017-02-11] MEDS: SENNOSIDES/DOCUSATE SODIUM 1 TAB TABLET PO SCH (20:57)
[2017-02-11] MEDS: INSULIN GLARGINE, HUMAN 1 UNIT/0.01 ML SQ SCH (21:03)
[2017-02-12] MEDS: PIPERACILLIN SODIUM/TAZOBACTAM 3.375 GM in DEXTROSE 5% IN WATER 50 ML IV SCH ×3 (05:39→17:12)
[2017-02-12] MEDS: 0.9 % SODIUM CHLORIDE 10 ML SYRINGE IV SCH ×3 (05:39→21:16)
[2017-02-12] MEDS: 0.9 % SODIUM CHLORIDE 1,000 ML IV SCH ×2 (05:40→11:58)
[2017-02-12] MEDS: VANCOMYCIN 2,000 MG in 0.9 % SODIUM CHLORIDE 500 ML IV SCH ×2 (08:15→19:17)
[2017-02-12] MEDS: HYDROCODONE/APAP 7.5/325MG TABLET PO PRN ×3 (08:32→20:12)
[2017-02-12] MEDS: IBUPROFEN 200 MG TABLET PO PRN ×2 (08:33→12:20)
[2017-02-12] MEDS: FOLIC ACID 1 MG TABLET PO SCH (08:35)
[2017-02-12] MEDS: MULTIVIT,THER IRON,CA,FA & MIN 1 TABLET PO SCH (08:35)
[2017-02-12] MEDS: DOCUSATE SODIUM 100 MG CAPSULE PO SCH ×2 (08:35→20:11)
[2017-02-12] MEDS: HEPARIN 5,000 UNIT/ML VIAL SQ SCH ×2 (08:35→21:15)
[2017-02-12] MEDS: INSULIN LISPRO 1 UNIT/0.01 ML UNIT SQ SCH ×4 (08:37→21:15)
[2017-02-12] MEDS: GENTAMICIN SULFATE 40 MG, CLINDAMYCIN 300 MG, BACITRACIN 25,000 UNIT in SODIUM CHLORIDE... IRR SCH ×2 (10:00→21:15)
--- NOTE | 2017-02-12 11:52 | Internal Med Progress Note ---
Medical - PN: Subj Patient information: Note initiated : 02/12/17 at 11:52 am Patient: Nicholas Teague a 36 y/o M admitted on 02/06/17 for Diabetic Right Foot Ulcer/Cellulitis, Sepsis. Interval history: February 06, 2017: History of present illness: Mr. Teague is a 36 year old M with known history of insulin-dependent diabetes since last 6 years. Patient has been helping his friend move and in the process he twisted his foot on the porch leading a blister on his sOLE. over the next 2 months patient has had frequent discharge and redness and progressive enlarging ulcer on the right foot undersurface. Patient over the last 2 weeks has noted ulceration on the dorsum of the right fourth toe There has been significant swelling redness and pain involving the outer half of the right foot. 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 During initial evaluation in the ED radha count is 16,300 and creatinine of 1.3. hospitalist service was subsequently consulted. At the time of examination patient is alert oriented. He is in good spirits. He denies fevers shaking chills drenching sweats. He denies purulent discharge. He endorses to increasing swelling and tenderness involving his right foot as above. He denies substance abuse. Denies joint painweight loss, diarrhea dysuria cough, productive sputum. 02/07-patient doing well. No overnight events. Status post incision and drainage right foot by podiatry today. atient was seen postoperatively. Mildly sedated. Complains of significant pain and not responding to 0.5 Dilaudid. Does increase to 0.5-1 every 2 hours along with oral hydrocodone. on diabetic diet. Wound care consulted. White count is 16.5. Stable renal function. Creatinine down to 1 from 1.3 02/08-- worsening white count at 19,000. 1 culture gram-negative dave. Blood culture gram-positive cocci. Repeat blood cultures pending. Ongoing wound care and broad antibiotic coverage including clindamycin and Rocephin and vancomycin. Pain much improved. renal function normalized. No overnight fever chills or concerns per staff 02/09- enterococci/group B streptococcus/staph aureus on wound culture. Continue vancomycin/rocephin. DC clindamycin. Anticipate discharge in 24 hours on IV vancomycin and Rocephin for 6 weeks in light of osteomyelitis. Wound care ongoing. Patient refused PICC line. Logistically to be difficult to continue 6 weeks antibiotics however despite efforts patient continues to refuse placement of PICC line to facilitate IV antibiotics. no overnight fever chills.white count down from 19.3-12.5. enal function remarkably improved. 02/10- polymicrobial cultures including's enterococci/staph/group B streptococcus and multiple GNR. Await sensitivities. Continue Zosyn and vancomycin. wound nurse expressed concerns about foul-smelling discharge. patient will require long-term antibiotic in light of osteomyelitis however until cellulitis and underlying soft tissue inflammation improves patient be a high risk discharge. I anticipate additional 48-72 hours hospitalization and IV antibiotics to facilitate adequate healing. He will also need ID consult once sensitivities resulted. White count uptrending at 13.5. no overnight fever chills. Complains of significant pain and nausea. February 11: Today, the patient says he is feeling relatively well. He says his pain is fairly well controlled, and is currently at 6 out of 10. He denies fever chills , chest pain or shortness of breath, GI or symptoms. He continues to decline a PICC line. He does not like the idea of a long-term IV. He is hoping to be discharged to home, rather than to a wound care facility. February 12: When I entered the room today the patient is in motion. His arms and legs seem to be shaking quite a bit. He tells me that his peripheral neuropathy is bothering him quite a bit, and he does not think he is received his gabapentin today, or perhaps at all since admission. Otherwise, his foot pain is relatively well controlled, rated as a 6 out of 10. He is hopeful that he can be discharged home tomorrow, and come back for IV antibiotics daily. Otherwise, he denies fever or chills, headaches or dizziness, chest pain or palpitations or shortness of breath, GI or symptoms. - Constitutional Vitals: Vital Signs Temp Pulse Resp BP Pulse Ox 98.6 F 75 20 159/88 98 02/12/17 11:22 02/12/17 04:00 02/12/17 11:22 02/12/17 11:22 02/12/17 11:22 Period Temp Pulse Resp BP Sys/Santoro Pulse Ox Last 24 Hr 97.7 F-98.6 F 61-75 14-20 143-169/81-102 96-99 Intake and Output 02/11/17 02/12/17 02/12/17 21:59 05:59 13:59 Intake Total 890 / 890 890 / 890 240 / 240 Output Total 200 / 200 950 / 950 350 / 350 Balance 690 / 690 -60 / -60 -110 / -110 Weight 231 lb 8 oz Intake & Output: Intake & Output 02/11/17 02/12/17 02/12/17 21:59 05:59 13:59 Intake Total 890 / 890 890 / 890 240 / 240 Output Total 200 / 200 950 / 950 350 / 350 Balance 690 / 690 -60 / -60 -110 / -110 Weight 231 lb 8 oz Intake: IV 50 / 50 550 / 550 Zosyn 3.375 gm In 50 / 50 50 / 50 Dextrose 5% in Water 50 ml @ 100 mls/hr IV Q6H RAYNA Rx#:[id number] Vancomycin 2,000 mg In 500 / 500 Sodium Chloride 0.9% 500 ml @ 333.3 mls/hr IV Q12H RAYNA Rx#:[id number] Oral 840 / 840 340 / 340 240 / 240 Output: Void Amount 200 / 200 950 / 950 350 / 350 Other: Meal Dinner Breakfast Percent of Meal Consumed 100% 100% # Voids 1 275 On exam, arms and legs are shaking a bit, to be voluntary, and perhaps he is doing to distract himself from his discomfort. Blood pressures running a bit high, ranging from 143-169/81-102 Neck is supple without lymphadenopathy or JVD. Cardiac exam shows regular rate and rhythm. Lungs are clear to auscultation. Abdomen is soft and nontender. Extremities show no significant edema. Right foot is heavily bandaged, with clean and dry dressing. Medical - PN: Obj Da - Labs CBC & Chem 7: 02/11/17 05:30 02/11/17 05:30 Labs: Abnormal Lab Results 02/12/17 02/11/17 02/11/17 05:54 05:30 05:30 WBC RBC Hgb Hct Glucose 128 H Triglycerides Vancomycin Trough 17.0 H 12.0 H 09/02/10/17 02/10/17 05:30 06:12 06:12 WBC 12.8 H 13.5 H RBC 3.58 L 3.75 L Hgb 9.9 L 10.3 L Hct 29.2 L 30.4 L Glucose 164 H Triglycerides 163 H Vancomycin Trough February 07: Wound culture: Is growing Citrobacter fundi, Morganella morganii, Klebsiella oxytoca, Staphylococcus aureus, strep agalactiae group B, enterococcus. All organisms except staff are sensitive to meropenem, aztreonam, cefepime, ceftriaxone, ciprofloxacin, gentamicin, Levaquin, tetracycline, Bactrim, Zosyn. Staphylococcus is sensitive to all antibiotics tested, including amoxicillin and meropenem. Next Blood cultures are negative so far. February 06: Foot MRI: Consistent with osteomyelitis involving the right fourth metatarsal and proximal phalanx. Soft tissue abnormality consistent with cellulitis. Meds: Medications Acetaminophen (Tylenol) 650 mg PO Q4-6HP PRN PRN Reason: PAIN/FEVER > 101 Hydrocodone Bitart/Acetaminophen (Sargent 7.5/325mg) 1 - 2 tab PO Q4-6HP PRN PRN Reason: Pain Last Admin: 02/12/17 08:32 Dose: 1 tab Dextrose (Dextrose 50%) 0 ml IV UD PRN PRN Reason: Hypoglycemia Diagnostic Test (Pha) (Accu-Chek) 1 each FS ACHS [facility] Last Admin: 02/12/17 08:16 Dose: 1 each Docusate Sodium (Colace) 100 mg PO BID [facility] Last Admin: 02/12/17 08:35 Dose: 100 mg Folic Acid (Folic Acid) 1 mg PO DAILY [facility] Last Admin: 02/12/17 08:35 Dose: 1 mg Glucose (Insta-Glucose) 15 gm PO PRN PRN PRN Reason: Hypoglycemia Guaifenesin/Codeine Phosphate (Robitussin Ac) 10 ml PO Q4HP PRN PRN Reason: Cough Heparin Sodium (Porcine) (Heparin) 5,000 unit SQ Q12 [facility] Last Admin: 02/12/17 08:35 Dose: 5,000 unit Magnesium Sulfate (Magnesium Sulfate) 2 gm in 50 mls @ 50 mls/hr IV UD PRN PRN Reason: MG = or < 1.7 Acetaminophen (Ofirmev) 1,000 mg in 100 mls @ 200 mls/hr IV Q6HP PRN PRN Reason: PAIN/FEVER > 101 Last Admin: 02/07/17 09:25 Dose: 200 mls/hr Piperacillin Sod/Tazobactam (Sod 3.375 gm/ Dextrose) 50 mls @ 100 mls/hr IV Q6H [facility] Last Admin: 02/12/17 05:39 Dose: 100 mls/hr Gentamicin Sulfate 40 mg/Clindamycin Phosphate 300 mg/Bacitracin 25,000 unit/ Sodium Chloride 503 mls @ 0 mls/hr IRR Q12H RAYNA PRN Reason: As Directed Last Admin: 02/11/17 20:57 Dose: 20 mls/hr Vancomycin HCl 2,000 mg/ (Sodium Chloride) 500 mls @ 333.3 mls/hr IV Q12H [facility] Last Admin: 02/12/17 08:15 Dose: 175 mls/hr Sodium Chloride (Sodium Chloride 0.9%) 1,000 mls @ 20 mls/hr IV .Q24H [facility] Ibuprofen (Motrin) 400 mg PO Q4HP PRN PRN Reason: Pain Last Admin: 02/12/17 08:33 Dose: 400 mg Insulin Glargine (Lantus) 34 unit SQ DAILY [facility] Insulin Human Lispro (Humalog) 0 unit SQ ACHS [facility] PRN Reason: Protocol Last Admin: 02/12/17 08:37 Dose: 2 unit Iron Carb/Multivit/Electrocardiogram Technician/Folic Acid (Multivitamin W/Minerals) 1 tab PO DAILY [facility] Last Admin: 02/12/17 08:35 Dose: 1 tab Ondansetron HCl (Zofran) 4 mg IV Q4-6HP PRN PRN Reason: Nausea And Vomiting Last Admin: 02/09/17 22:08 Dose: 4 mg Potassium Chloride (Klor-Con) 40 meq PO DAILYP PRN PRN Reason: K+ < 3.5 Senna/Docusate Sodium (Senna Plus Tablet) 1 tab PO HS [facility] Last Admin: 02/11/17 20:57 Dose: 1 tab Sodium Chloride (Saline Flush) 10 ml IV Q8 [facility] Last Admin: 02/12/17 05:39 Dose: Not Given Trazodone HCl (Desyrel) 50 mg PO HSP PRN PRN Reason: Insomnia Last Admin: 02/10/17 21:40 Dose: 50 mg Vancomycin HCl (Vancomycin Per Pharmacy) 1 order IV UD [facility] Medical - PN: A/P - Time Spent With Patient Total time spent is greater than 50% in coordination of care (as documented) at patient's floor/unit and/or counseling patient: 25 - 35 minutes - Narrative A/P Narrative: #1. Diabetic right foot ulcer/cellulitis- continue wound care and antibiotics. * #2. Osteomyelitis. * Right fourth metatarsal and proximal phalanx -polymicrobial culture- staph aureus/group B streptococcus/enterococci and GNR. Status post I&D by podiatry. * -wound care ongoing. Continue Zosyn and vancomycin. Consider ID consult . It looks like all organisms would be sensitive to meropenem/ertapenem. Perhaps he could be discharged to outpatient IV antibiotics with once a day Invanz. -I will try to verify this with pharmacy and microbiology tomorrow. #3. Sepsis- Secondary to above. White count at own from 19.3 to 12.5. * Resolved. * #4. Mild HAMIDA- Resolved * #5. Hyperlipidemia on statin. * #6. Chronic pain * -Controlled on hydrocodone * -He seems to have increased pain today, and it appears that his home medications were not reordered on admission. Those were reordered today, although I will start with a lower dose of Seroquel, to see how he tolerates. * #7.DM type II continue basal prandial insulin. blood sugars at goal. * #8. Anxiety disorder-at baseline. Resume medications. * #9. Full code * #10. DVT prophylaxis: Subcu heparin. Approximately 30 minutes was spent today, reviewing the patient's chart and test results, interviewing and examining him, and reviewing plan of care with Dr. quintana. Medical - PN: Qual - VTE Deep Vein Thrombosis/Pulmonary Embolism Present on Admission: No
[2017-02-12] MEDS: INSULIN GLARGINE, HUMAN 1 UNIT/0.01 ML SQ SCH (11:55)
[2017-02-12] MEDS ORDERED: GABAPENTIN 100 MG CAPSULE PO ONE (12:06)
[2017-02-12] MEDS: GABAPENTIN 300 MG CAPSULE PO SCH ×2 (16:00→20:11)
[2017-02-12] MEDS ORDERED: MAGNESIUM SULFATE 2 GM/50 ML BAG IV ONE (19:15)
[2017-02-12] MEDS: SENNOSIDES/DOCUSATE SODIUM 1 TAB TABLET PO SCH (20:11)
[2017-02-12] MEDS ORDERED: SIMVASTATIN 40 MG TABLET PO SCH (21:00)
[2017-02-12] MEDS ORDERED: LISINOPRIL 20 MG TABLET PO SCH (21:00)
[2017-02-12] MEDS ORDERED: QUEtiapine 100 MG TABLET PO SCH (21:00)
[2017-02-13] MEDS: PIPERACILLIN SODIUM/TAZOBACTAM 3.375 GM in DEXTROSE 5% IN WATER 50 ML IV SCH ×4 (00:13→16:51)
[2017-02-13] MEDS: IBUPROFEN 200 MG TABLET PO PRN (03:57)
[2017-02-13] MEDS: 0.9 % SODIUM CHLORIDE 10 ML SYRINGE IV SCH ×2 (05:14→14:52)
[2017-02-13 06:09] LABS: Basophils # (Auto) 0 K/mcL (0.0-0.3); Basophils % (Auto) 0.4 % (0.0-2.0); Eosinophils # (Auto) 0.4 K/mcL (0.0-0.7); Eosinophils % (Auto) 3.2 % (0.0-7.0); Granulocytes % (Auto) 65.1 % (38.0-78.0); Lymphocytes # (Auto) 2.7 K/mcL (1.5-4.8); Lymphocytes % (Auto) 23.7 % (15.5-49.0); Mean Cell Volume 81.5 fL (80.0-100.0); Mean Corpuscular HGB Conc 33.8 g/dL (31.0-36.0); Mean Corpuscular Hemoglobin 27.5 pg (26.0-34.0); Monocytes # (Auto) 0.9 K/mcL (0.1-0.9); Monocytes % (Auto) 7.6 % (1.0-12.0); Platelet Count 294 K/mcL (140-440); Red Cell Distribution Width 12.9 % (11.5-14.5)
[2017-02-13 06:34] LABS: ALT/SGPT 14 U/l (0-40); Albumin 3.3 gm/dL (3.2-5.2); Albumin/Globulin Ratio 1.1 (1.0-2.3); Alkaline Phosphatase 56 U/L (39-117); Bilirubin,Direct < 0.2 mg/dL (0.0-0.3); Blood Urea Nitrogen 11 mg/dl (6-20); Gamma Glutamyl Transpeptidase 47 U/L (8-61); Magnesium 2.2 mg/dL (1.6-2.5); Uric Acid 2.6 mg/dL (2.5-8.0)
[2017-02-13] MEDS: HYDROCODONE/APAP 7.5/325MG TABLET PO PRN ×2 (08:05→14:52)
--- NOTE | 2017-02-13 08:23 | General Surgery Progress Note ---
Subjective Patient reports: no new complaints (Uneventful night. Keen to go home. On IV antibiotics and daily dressing changes. Patient seen on behalf of Dr. SANTOS, B[employer] Machine T[employer].), other Narrative: Note initiated : 02/13/17 at 8:18 am Service Date, if different from initiated Date: [] Patient: Nicholas Santos 36 y/o M admitted on 02/06/17 for Diabetic Right Foot Ulcer/Cellulitis, Sepsis. Chief Complaint: [] Objective Temp Pulse Resp BP Pulse Ox 98.4 F 75 18 168/97 97 02/13/17 04:00 02/13/17 04:47 02/13/17 04:00 02/13/17 04:47 02/13/17 04:00 AVSS. ADRIENNE No acute changes. L/E: Right foot plantar ulcer site is CDI . NO drainage, No odor, Periwound skin and sub Q texture is returning to normal for this patient. Daily wound care can NOW be once daily Clean with NS and place GCB soaked gauze in wound and cover with AMD gauze and Kerlix bandage daily. Continue OFF loading of foot and toes as explained. Multiple organisms on cultures. May be treated with PO antibiotics or IV antibiotic ONCE a day . - Additional Data Intake & Output - Last 24 hours: Intake & Output 02/11/17 02/12/17 02/13/17 02/14/17 05:59 05:59 05:59 05:59 Intake Total 4010 / 4010 2620 / 2620 4180 / 4180 Output Total 600 / 600 1625 / 1625 2500 / 2500 Balance 3410 / 3410 995 / 995 1680 / 1680 Weight 231 lb 231 lb 8 oz 232 lb 8 oz - Labs 02/13/17 05:05 02/13/17 05:05 Diabetes panel 02/13/17 Range/Units 05:05 Sodium 140 (133-145) mmol/L Potassium 3.4 (3.3-5.1) mmol/L Chloride 105 (96-108) mmol/L Carbon Dioxide 26 (22-30) mmol/L BUN 11 (6-20) mg/dl Creatinine 0.7 (0.7-1.2) mg/dl Glucose 149 H (70-105) mg/dL Calcium 8.8 (8.6-10.4) mg/dl AST 10 (0-37) U/l ALT 14 (0-40) U/l Alkaline Phosphatase 56 (39-117) U/L Total Protein 6.4 (5.9-8.4) gm/dL Albumin 3.3 (3.2-5.2) gm/dL Triglycerides 156 H (<150) mg/dl Calcium panel 02/13/17 Range/Units 05:05 Calcium 8.8 (8.6-10.4) mg/dl Phosphorus 2.8 (2.7-4.5) mg/dL Albumin 3.3 (3.2-5.2) gm/dL Pituitary panel 02/13/17 Range/Units 05:05 Sodium 140 (133-145) mmol/L Potassium 3.4 (3.3-5.1) mmol/L Chloride 105 (96-108) mmol/L Carbon Dioxide 26 (22-30) mmol/L BUN 11 (6-20) mg/dl Creatinine 0.7 (0.7-1.2) mg/dl Glucose 149 H (70-105) mg/dL Calcium 8.8 (8.6-10.4) mg/dl Adrenal panel 02/13/17 Range/Units 05:05 Sodium 140 (133-145) mmol/L Potassium 3.4 (3.3-5.1) mmol/L Chloride 105 (96-108) mmol/L Carbon Dioxide 26 (22-30) mmol/L BUN 11 (6-20) mg/dl Creatinine 0.7 (0.7-1.2) mg/dl Glucose 149 H (70-105) mg/dL Calcium 8.8 (8.6-10.4) mg/dl Total Bilirubin 0.2 (0.0-1.0) mg/dL AST 10 (0-37) U/l ALT 14 (0-40) U/l Alkaline Phosphatase 56 (39-117) U/L Total Protein 6.4 (5.9-8.4) gm/dL Albumin 3.3 (3.2-5.2) gm/dL Assessment and Plan - Time Spent With Patient Total time spent is greater than 50% in coordination of care (as documented) at patient's floor/unit and/or counseling patient: Assessment: Patient seen with Erica RN and nursing staff on floor. Patient is progressing well. OK to discharge home on wound care and antibiotics as out patient. Plan: OK for discharge and F/U with Dr. Santos, Blow Machine Tender [employer] at the wound center. Please CALL and Schedule follow up appointment before discharge. 15 - 24 minutes
[2017-02-13] MEDS: GENTAMICIN SULFATE 40 MG, CLINDAMYCIN 300 MG, BACITRACIN 25,000 UNIT in SODIUM CHLORIDE... IRR SCH (09:30)
[2017-02-13] MEDS: DOCUSATE SODIUM 100 MG CAPSULE PO SCH (09:30)
[2017-02-13] MEDS: FOLIC ACID 1 MG TABLET PO SCH (09:30)
[2017-02-13] MEDS: VANCOMYCIN 2,000 MG in 0.9 % SODIUM CHLORIDE 500 ML IV SCH (10:02)
[2017-02-13] MEDS: GABAPENTIN 300 MG CAPSULE PO SCH ×2 (10:05→14:52)
[2017-02-13] MEDS: HEPARIN 5,000 UNIT/ML VIAL SQ SCH (10:05)
[2017-02-13] MEDS: INSULIN GLARGINE, HUMAN 1 UNIT/0.01 ML SQ SCH (10:05)
[2017-02-13] MEDS: MULTIVIT,THER IRON,CA,FA & MIN 1 TABLET PO SCH (10:05)
--- NOTE | 2017-02-13 10:30 | Discharge Summary ---
Medical - DS: Prov Patient information: Note initiated : 02/13/17 at 10:30 am Patient: Nicholas Teague 36 y/o M admitted on 02/06/17 for Diabetic Right Foot Ulcer/Cellulitis, Sepsis. Date of admission: 02/06/17 17:48 Discharge date: 02/13/17 Primary care physician: Car Rosado Admitting clinician: Khadar Espino Consults: 02/10/17 11:58 Consult to Physician [CONS] Routine Comment: right foot wound Consulting Provider: Maximiliano Evangelista Reason For Exam: Physician to Consult Attending physician on discharge: Margarita Morgan Medical - DS: Meds - Discharge Medications Prescriptions: Ertapenem [INVanz] 1 gm IM Q24H #40 vial Active and Home Medications: Discharge medications: Invanz 1 g IV daily through approximately March 20. Tylenol 650 mg every 6 hours as needed Gentamicin/clindamycin/B bacitracin irrigation solution applied to wound daily Multivitamin 1 a day Gabapentin 300 mg 3 times daily Lisinopril 40 mg nightly [place] 7.5/325 3 times daily as needed Simvastatin 40 mg nightly Quetiapine 600 mg nightly Lantus 34 units subcu every morning Previous home Medications: gabapentin 300 mg capsule 300 mg PO TID #90 cap 11/01/16 [Rx Confirmed 02/06/17 Last Taken 02/06/17 12:00] lisinopril 20 mg tablet 40 mg PO HS #60 tab 11/24/16 [Rx Confirmed 02/06/17 Last Taken 02/05/17 19:00] hydrocodone 7.5 mg-acetaminophen 325 mg tablet 1 tab PO TID #90 tab 01/23/17 [ Rx Confirmed 02/06/17 Last Taken 02/06/17 12:00] simvastatin 40 mg tablet 40 mg PO HS #90 tab 01/23/17 [Rx Confirmed 02/06/17 Last Taken 02/05/17 19:00] QUEtiapine FUMARATE [Seroquel] 600 mg PO HS 02/06/17 [History Confirmed Last Taken 02/05/17 19:00] Insulin Glargine,Hum.rec.anlog [[place]ie Lang] 34 unit SUB-Q QAM 09/17/17 [ History Confirmed 02/06/17 Last Taken 02/05/17 19:00] Medical - DS: Hosp Hospital course: Mr. Teague is a 36 year old M February 06, 2017: History of present illness: Mr. Teague is a 36 year old M with known history of insulin-dependent diabetes since last 6 years. Patient has been helping his friend move and in the process he twisted his foot on the porch leading a blister on his sOLE. over the next 2 months patient has had frequent discharge and redness and progressive enlarging ulcer on the right foot undersurface. Patient over the last 2 weeks has noted ulceration on the dorsum of the right fourth toe There has been significant swelling redness and pain involving the outer half of the right foot. He was seen at dining room captain office today and was referred to [facility] ER for admission so he can undergo debridement. During initial evaluation in the ED ardha count is 16,300 and creatinine of 1.3. hospitalist service was subsequently consulted. At the time of examination patient is alert oriented. He is in good spirits. He denies fevers shaking chills drenching sweats. He denies purulent discharge. He endorses to increasing swelling and tenderness involving his right foot as above. He denies substance abuse. Denies joint painweight loss, diarrhea dysuria cough, productive sputum. 02/07-patient doing well. No overnight events. Status post incision and drainage right foot by podiatry today. atient was seen postoperatively. Mildly sedated. Complains of significant pain and not responding to 0.5 Dilaudid. Does increase to 0.5-1 every 2 hours along with oral hydrocodone. on diabetic diet. Wound care consulted. White count is 16.5. Stable renal function. Creatinine down to 1 from 1.3 02/08-- worsening white count at 19,000. 1 culture gram-negative dave. Blood culture gram-positive cocci. Repeat blood cultures pending. Ongoing wound care and broad antibiotic coverage including clindamycin and Rocephin and vancomycin. Pain much improved. renal function normalized. No overnight fever chills or concerns per staff 02/09- enterococci/group B streptococcus/staph aureus on wound culture. Continue vancomycin/rocephin. DC clindamycin. Anticipate discharge in 24 hours on IV vancomycin and Rocephin for 6 weeks in light of osteomyelitis. Wound care ongoing. Patient refused PICC line. Logistically to be difficult to continue 6 weeks antibiotics however despite efforts patient continues to refuse placement of PICC line to facilitate IV antibiotics. no overnight fever chills.white count down from 19.3-12.5. enal function remarkably improved. 02/10- polymicrobial cultures including's enterococci/staph/group B streptococcus and multiple GNR. Await sensitivities. Continue Zosyn and vancomycin. wound nurse expressed concerns about foul-smelling discharge. patient will require long-term antibiotic in light of osteomyelitis however until cellulitis and underlying soft tissue inflammation improves patient be a high risk discharge. I anticipate additional 48-72 hours hospitalization and IV antibiotics to facilitate adequate healing. He will also need ID consult once sensitivities resulted. White count uptrending at 13.5. no overnight fever chills. Complains of significant pain and nausea. February 11: Today, the patient says he is feeling relatively well. He says his pain is fairly well controlled, and is currently at 6 out of 10. He denies fever chills , chest pain or shortness of breath, GI or symptoms. He continues to decline a PICC line. He does not like the idea of a long-term IV. He is hoping to be discharged to home, rather than to a wound care facility. February 12: When I entered the room today the patient is in motion. His arms and legs seem to be shaking quite a bit. He tells me that his peripheral neuropathy is bothering him quite a bit, and he does not think he is received his gabapentin today, or perhaps at all since admission. Otherwise, his foot pain is relatively well controlled, rated as a 6 out of 10. He is hopeful that he can be discharged home tomorrow, and come back for IV antibiotics daily. Otherwise, he denies fever or chills, headaches or dizziness, chest pain or palpitations or shortness of breath, GI or symptoms. February 13: Hospital course: This patient apparently stepped wrong and then developed a blister on his foot about 2 months prior to admission. He was admitted with worsening cellulitis and osteomyelitis. He grew multiple organisms from his wound, and also gram- positive cocci from his blood. He was treated in the hospital with vancomycin and Rocephin initially, and then changed to vancomycin and Zosyn to cover his multiple organisms. At this time, he is clinically improved. White blood cell count continues to trend downward. Wound has been managed over the weekend by Dr. Evangelista of wound care. Today he appears stable for discharge, to continue with IV antibiotics as an outpatient, for a total of 6 weeks. He should consider following up with infectious diseases, to review ID and sensitivities on the 6 different organisms that grew from his wound. He should follow-up daily also for dressing changes, either with Dr. Lawrence Monday, or with Dr. Teague of podiatry. Yesterday his neuropathy was really bothering him, but we realized we had not resumed his home gabapentin. Once he had that back on board it settled down significantly. Today, he reports he has only mild pain in his foot. He denies fever chills, headaches or dizziness, chest pain or shortness of breath, GI or symptoms. Exam: He is afebrile. Heart rate is 99. Blood pressures ranging from 154-168/83-97 neck is supple without lymphadenopathy or JVD. Cardiac exam shows regular rate and rhythm. Lungs are clear to auscultation. Abdomen is soft and nontender. Extremities show no significant edema. Right foot is heavily bandaged, with clean and dry dressing. A/P #1. Diabetic right foot ulcer/cellulitis- continue wound care and antibiotics. * #2. Osteomyelitis. * Right fourth metatarsal and proximal phalanx -polymicrobial culture- staph aureus/group B streptococcus/enterococci and GNR. Status post I&D by podiatry. . Consider ID consult . It looks like all organisms would be sensitive to meropenem/ertapenem. We will plan on setting him up for once a day IV Invanz as an outpatient. Pharmacy could not say for sure that Invanz would cover his staph aureus. However, looking at the culture, it is pansensitive, and should be sensitive to everything. Ideally, he should follow-up with ID as an outpatient, to be sure he is fully covered. #3. Sepsis- Secondary to above. White count at own from 19.3 to 12.5. * Resolved. * #4. Mild HAMIDA- Resolved * #5. Hyperlipidemia on statin. * #6. Chronic pain * -Controlled on hydrocodone * Symptoms are much improved today, now that his home medications have been resumed. * #7.DM type II continue basal prandial insulin. blood sugars at goal. * #8. Anxiety disorder-at baseline. Resume medications. * #9. Full code * #10. DVT prophylaxis: Subcu heparin. Discharge diagnosis: Infected diabetic foot ulcer, with right foot osteomyelitis. Type 2 diabet - Time Spent with Patient Total time spent providing and/or coordinating discharge services: Greater than 30 minutes Medical - DS: Exam - Constitutional Vitals: Vital Signs Temp Pulse Pulse Resp BP BP Pulse Ox 02/13/17 08:45 99 H 97 02/13/17 08:00 98.3 F 20 154/83 93 02/13/17 04:47 75 168/97 02/13/17 04:00 98.4 F 93 H 18 97 02/12/17 23:32 98.1 F 81 14 158/87 97 02/12/17 20:00 97.2 F 80 16 181/96 100 02/12/17 15:30 98.4 F 20 162/88 96 02/12/17 11:22 98.6 F 20 159/88 98 Intake and Output 02/12/17 02/13/17 02/13/17 21:59 05:59 13:59 Intake Total 1250 / 1250 850 / 850 420 / 420 Output Total 900 / 900 800 / 800 375 / 375 Balance 350 / 350 50 / 50 45 / 45 Intake: IV 50 / 50 550 / 550 Zosyn 3.375 gm In 50 / 50 50 / 50 Dextrose 5% in Water 50 ml @ 100 mls/hr IV Q6H RAYNA Rx#:[id number] Vancomycin 2,000 mg In 500 / 500 Sodium Chloride 0.9% 500 ml @ 333.3 mls/hr IV Q12H RAYNA Rx#:[id number] Oral 1200 / 1200 300 / 300 420 / 420 Output: Void Amount 900 / 900 800 / 800 375 / 375 Other: Meal Dinner Breakfast Percent of Meal Consumed 100% 100% Weight 232 lb 8 oz Medical - DS: Data Labs on day of discharge: Labs from last 24 hours 02/13/17 02/13/17 05:05 05:05 WBC 11.4 H RBC 3.50 L Hgb 9.6 L Hct 28.5 L MCV 81.5 MCH 27.5 MCHC 33.8 RDW 12.9 Plt Count 294 MPV 9.8 Gran % 65.1 Lymph % (Auto) 23.7 [place] % (Auto) 7.6 Eos % (Auto) 3.2 Baso % (Auto) 0.4 Gran # 7.4 Lymph # (Auto) 2.7 [place] # (Auto) 0.9 Eos # (Auto) 0.4 Baso # (Auto) 0 Sodium 140 Potassium 3.4 Chloride 105 Carbon Dioxide 26 Anion Gap 9.0 BUN 11 Creatinine 0.7 GFR Calculation 120 Glucose 149 H Uric Acid 2.6 Calcium 8.8 Phosphorus 2.8 Magnesium 2.2 Total Bilirubin 0.2 Direct Bilirubin < 0.2 GGT 47 AST 10 ALT 14 Alkaline Phosphatase 56 Lactate Dehydrogenase 121 Total Protein 6.4 Albumin 3.3 Globulin 3.1 Albumin/Globulin Ratio 1.1 Triglycerides 156 H Preliminary micro results at discharge 02/07/17 08:03 Anaerobic Culture - Preliminary Wound - Deep February 07: Wound culture: Is growing Citrobacter fundi, Morganella morganii, Klebsiella oxytoca, Staphylococcus aureus, strep agalactiae group B, enterococcus. All organisms except staff are sensitive to meropenem, aztreonam, cefepime, ceftriaxone, ciprofloxacin, gentamicin, Levaquin, tetracycline, Bactrim, Zosyn. Staphylococcus is sensitive to all antibiotics tested, including amoxicillin and meropenem. Blood cultures are negative so far. February 06: Foot MRI: Consistent with osteomyelitis involving the right fourth metatarsal and proximal phalanx. Soft tissue abnormality consistent with cellulitis. Medical - DS: A/P - Patient/Caregiver Discharge Instructions Activity: increase activity as tolerated Diet: Consistent Carbohydrate Additional Instructions: At discharge, make appt. to follow up with [facility] on February 15, AT 3:40PM. [phone] [facility]. [phone] Daily dressing changes and antibiotics. Begin on Monday02/14/17 @ 10:00 AM Use your crutches for ambulation. Prescriptions: Ertapenem [INVanz] 1 gm IM Q24H #40 vial Other Amb Orders: Wound Care Instructions Location: Determined By Patient Wound Care Instructions Location: Determined By Patient - Follow up Plan Follow up with: Dewey Montenegro ARNP [Physician] - (The office will be calling you to set up an appointment with infection control/wound care with Dewey Felix. If you don't hear from them by Monday, call them at [phone]) Guanaco Teague DPM [Physician] - 02/15/17 3:40 pm Car Rosado PA-C [Primary Care Provider] - Disposition: Home, Self-Care Prognosis: Good Rehab Potential: Good I certify that the patient requires SNF services: No Overall status at discharge: patient is progressing back to baseline Medical - DS: Qual - VTE Deep Vein Thrombosis/Pulmonary Embolism Present on Admission: No
[2017-02-13] MEDS: INSULIN LISPRO 1 UNIT/0.01 ML UNIT SQ SCH ×3 (11:23→16:51)
[2017-02-13] MEDS: 0.9 % SODIUM CHLORIDE 1,000 ML IV SCH (13:37)
== END 2017-02-13 16:59 | disposition home or self-care (01) | DRG 854 ==
LOC: ED 14:36 → MEDSUR 17:47 → SUATTDRO 17:48
PROVIDERS: ADMIT Internal Medicine; ATTEND Internal Medicine

== ENCOUNTER 2017-05-31 13:44 | Inpatient (IN) ==
[2017-05-31] MEDS ORDERED: VANCOMYCIN 1,500 MG in 0.9 % SODIUM CHLORIDE 500 ML IV ONE (14:02)
--- NOTE | 2017-05-31 14:02 | Emergency Department Note ---
Skin/Abscess/FB HPI - General Chief complaint: Skin/Abscess/Foreign Body Stated complaint: left foot swelling, wound on toe Time Seen by Provider: 05/31/17 13:55 Source: patient Mode of arrival: ambulatory Limitations: no limitations - History of Present Illness HPI Narrative: This patient has diabetic foot infection of his left foot. He says Dr. Teague wanted him admitted 3 weeks ago but he refused. It is now swollen and the second toe is quite swollen and red. - Related Data Home Medications Medication Instructions Recorded Confirmed QUEtiapine FUMARATE [Seroquel] 600 mg PO HS 02/06/17 05/31/17 Insulin Glargine,Hum.rec.anlog 34 unit SUB-Q QAM 02/12/17 05/31/17 [Tovalentin Lang] Previous Rx's Medication Instructions Recorded lisinopril 20 mg tablet 40 mg PO HS #60 tab 11/24/16 simvastatin 40 mg tablet 40 mg PO HS #90 tab 01/23/17 Accu-Chek 1 each FS ACHS strip 02/13/17 Multivit,Ther Iron,Ca,FA & Min 1 tab PO DAILY tab 02/13/17 [Multivitamin W/Minerals] gabapentin 300 mg capsule 300 mg PO TID #90 cap 03/21/17 hydrocodone 10 mg-acetaminophen 1 tab PO .TID-QID #120 tab 05/04/17 325 mg tablet Allergies Allergy/AdvReac Type Severity Reaction Status Date / Time Hydromorphone [From Dilaudid] AdvReac Mild Nausea/Vomi Verified 05/31/17 17:44 ting Review of Systems All systems ED: reviewed and negative except as stated. Past Medical History - Past Medical History [facility] Narrative: Medical History (Last Reviewed 11/24/16 @ 10:49 by Car Rosado PA-C) Diabetic foot ulcers (Acute) Diabetic foot ulcer (Acute) Diabetic foot infection (Acute) Cellulitis of foot, right (Acute) Diabetic foot ulcer (Acute) Elevated C-reactive protein (CRP) (Acute) Diabetes mellitus type 2 with complications (Acute) Anemia (Acute) Elevated serum creatinine (Acute) Microalbuminuria (Acute) Heart murmur, systolic (Acute) Diabetic ulcer of right foot (Acute) Diabetes (Chronic) Type 2 diabetes mellitus (Chronic) Medical history: Reports: DM, hyperlipidemia, hypertension, other Psychiatric history: Reports: PTSD, schizophrenia - Social History smoking status: Never smoker Alcohol use: Reports: Unknown Drug use: Reports: marijuana (occasionally) Physical Exam The left foot shows quite a bit of swelling from the toes and the forefoot up. The second toe is quite swollen with an ulcer on the top of it. Limitations: no limitations General appearance: alert Head: atraumatic Eye: Present: normal appearance ENT: normal exam Neck: Present: normal inspection Chest: Present: normal inspection Respiratory: Present: normal lung sounds bilaterally Cardiovascular: Present: regular rate, normal rhythm, normal heart sounds Neurological: Present: alert Psychiatric: Present: normal affect, normal mood Skin: Present: other Course Vital Signs Temperature 98.0 F 05/31/17 13:44 Pulse Rate 92 H 05/31/17 13:44 Respiratory Rate 18 05/31/17 13:44 Blood Pressure 135/87 05/31/17 13:44 Pulse Oximetry (%) 100 05/31/17 13:44 Temperature 101.4 F H 06/01/17 06:09 Pulse Rate 110 H 06/01/17 04:00 Respiratory Rate 16 06/01/17 04:00 Blood Pressure 128/80 06/01/17 04:00 Pulse Oximetry (%) 95 06/01/17 04:00 Skin/Abscess/Foreign Body - MDM Narrative Medical decision making narrative: This patient get an MRI of for look for osteomyelitis and will be admitted to the hospital by Dr. Parikh. We gave him Zosyn and vancomycin IV. - Lab Data Result diagrams: 06/01/17 04:31 06/01/17 04:31 Lab Results 05/31/17 05/31/17 Range/Units 14:08 14:08 WBC 12.2 H (4.5-11.0) K/mcL RBC 3.91 L (4.50-5.90) M/mcL Hgb 10.8 L (13.5-16.5) g/dL Hct 32.0 L (41.0-55.0) % MCV 81.7 (80.0-100.0) fL MCH 27.5 (26.0-34.0) pg MCHC 33.6 (31.0-36.0) g/dL RDW 13.2 (11.5-14.5) % Plt Count 190 (140-440) K/mcL MPV 10.4 (7.4-10.4) fL Gran % 69.5 (38.0-78.0) % Lymph % (Auto) 19.0 (15.5-49.0) % [place] % (Auto) 9.2 (1.0-12.0) % Eos % (Auto) 1.9 (0.0-7.0) % Baso % (Auto) 0.4 (0.0-2.0) % Gran # 8.5 H (1.8-8.0) K/mcL Lymph # (Auto) 2.3 (1.5-4.8) K/mcL [place] # (Auto) 1.1 H (0.1-0.9) K/mcL Eos # (Auto) 0.2 (0.0-0.7) K/mcL Baso # (Auto) 0 (0.0-0.3) K/mcL Sodium 136 (133-145) mmol/L Potassium 4.1 (3.3-5.1) mmol/L Chloride 100 (96-108) mmol/L Carbon Dioxide 24 (22-30) mmol/L Anion Gap 12.0 (8-16) BUN 21 H (6-20) mg/dl Creatinine 1.0 (0.7-1.2) mg/dl GFR Calculation 95 Glucose 337 H (70-105) mg/dL Calcium 9.3 (8.6-10.4) mg/dl Total Bilirubin 0.3 (0.0-1.0) mg/dL AST 7 (0-37) U/l ALT 13 (0-40) U/l Alkaline Phosphatase 92 (39-117) U/L Total Protein 6.8 (5.9-8.4) gm/dL Albumin 3.5 (3.2-5.2) gm/dL Globulin 3.3 (2.2-3.7) gm/dL Albumin/Globulin Ratio 1.1 (1.0-2.3) - Radiology Data Radiology results reviewed: Yes I reviewed the patient's radiology results. Disposition Pt seen by CONTRACT ASSOCIATE MANAGER/PA only: No Clinical Impression: Cellulitis, Abscess of skin or subcutaneous tissue Disposition: Xfer As Outpt/Obs ([facility]) Condition: Fair
[2017-05-31] MEDS ORDERED: PIPERACILLIN SODIUM/TAZOBACTAM 3.375 GM in DEXTROSE 5% IN WATER 50 ML IV ONE (14:27)
[2017-05-31 14:40] LABS: Basophils # (Auto) 0 K/mcL (0.0-0.3); Basophils % (Auto) 0.4 % (0.0-2.0); Eosinophils # (Auto) 0.2 K/mcL (0.0-0.7); Eosinophils % (Auto) 1.9 % (0.0-7.0); Granulocytes % (Auto) 69.5 % (38.0-78.0); Lymphocytes # (Auto) 2.3 K/mcL (1.5-4.8); Mean Cell Volume 81.7 fL (80.0-100.0); Mean Corpuscular HGB Conc 33.6 g/dL (31.0-36.0); Mean Corpuscular Hemoglobin 27.5 pg (26.0-34.0); Monocytes # (Auto) 1.1 K/mcL (0.1-0.9); Monocytes % (Auto) 9.2 % (1.0-12.0); Platelet Count 190 K/mcL (140-440); RBC 3.91 M/mcL (4.50-5.90); Red Cell Distribution Width 13.2 % (11.5-14.5)
[2017-05-31 15:10] LABS: ALT/SGPT 13 U/l (0-40); Albumin 3.5 gm/dL (3.2-5.2); Albumin/Globulin Ratio 1.1 (1.0-2.3); Alkaline Phosphatase 92 U/L (39-117); Blood Urea Nitrogen 21 mg/dl (6-20)
--- NOTE | 2017-05-31 15:42 | Internal Med History&Physical ---
Medical - H&P: [facility] Patient information: Note initiated : 05/31/17 at 3:39 pm Service Date, if different from initiated Date: [] Patient: Nicholas Teague 36 y/o M admitted on for left foot swelling, wound on toe. Chief Complaint: [] History of present illness: Mr. Teague is a 36 year old Male wit h/o DM, presents to the ER for pain in the left toe, the patient notes that the left middle toe started to get infected , an look bad approximately 1 month ago, 3 weeks ago he was advised by his physician to get admitted and have it treated, but he declined and thought it was getting better, the patients toe continue to get worse, it is more swollen , red and has pus drainage. Over the last 48 the pain has gotten worse, redness and swelling has gotten worse, as per the patient he has extracted pus. pain is throbbing, moderate to severe, worse with touch, activity better with pain meds and rest. He denies any other complaints or concerns, he has some dizziness. He denies headache, chest pain, shortness of breath, fever or chills, no rigors , no nausesa / vomiting, no urinary issues, no contipation or diarrhea. The pt was admitted to this hospita a few months ago with DM foot on the right leg, which was debrided and managed by Dr Teague, he received Ertapenum x 6 weeks then. He is supposed to get an MRI of the foot, as per ER provider at around 4. The patient is being admitted to the hospital for further management. All systems: reviewed and no additional remarkable complaints except as stated ( as per HPI) Medical - H&P: [facility] Medical history: Medical History (Last Reviewed 11/24/16 @ 10:49 by Car Rosado PA-C) Diabetic foot ulcers (Acute) Diabetic foot ulcer (Acute) Diabetic foot infection (Acute) Cellulitis of foot, right (Acute) Diabetic foot ulcer (Acute) Elevated C-reactive protein (CRP) (Acute) Diabetes mellitus type 2 with complications (Acute) Anemia (Acute) Elevated serum creatinine (Acute) Microalbuminuria (Acute) Heart murmur, systolic (Acute) Diabetic ulcer of right foot (Acute) Diabetes (Chronic) Type 2 diabetes mellitus (Chronic) Surgical history: right foot debridement, for diabetic ulcer. Family history: reviewed and not pertinent Medical - H&P: Meds Home Medications Medication Instructions Recorded Confirmed Type lisinopril 20 mg tablet 40 mg PO HS #60 tab 11/24/16 05/31/17 Rx simvastatin 40 mg tablet 40 mg PO HS #90 tab 01/23/17 05/31/17 Rx QUEtiapine FUMARATE [Seroquel] 600 mg PO HS 02/06/17 05/31/17 History Insulin Glargine,Hum.rec.anlog 34 unit SUB-Q QAM 02/12/17 05/31/17 History [Toujeo Solostar] Accu-Chek 1 each FS ACHS strip 02/13/17 05/31/17 Rx Multivit,Ther Iron,Ca,FA & Min 1 tab PO DAILY tab 02/13/17 05/31/17 Rx [Multivitamin W/Minerals] gabapentin 300 mg capsule 300 mg PO TID #90 cap 03/21/17 05/31/17 Rx hydrocodone 10 mg-acetaminophen 1 tab PO .TID-QID #120 tab 05/04/17 05/31/17 Rx 325 mg tablet Allergies Allergy/AdvReac Type Severity Reaction Status Date / Time Hydromorphone [From Dilaudid] AdvReac Intermediate Vomiting Verified 04/04/17 09 :19 Medical - H&P: Exam - Constitutional Vitals: Temp Pulse Resp BP Pulse Ox 98.0 F 92 H 18 135/87 100 05/31/17 13:44 05/31/17 13:44 05/31/17 13:44 05/31/17 13:44 05/31/17 13:44 Exam: GENERAL: The patient is a well-developed, well-nourished in no apparent distress. Is alert and oriented x3. VITAL SIGNS: Reviewed and as noted elsewhere. HEENT: Head is normocephalic and atraumatic. Extraocular muscles are intact. Pupils are equal, round, and reactive to light. Nares appeared normal. Mouth appears any without lesions. Mucous membranes are moist. NECK: Normal to inspection, Supple, No lymphadenopathy or thyromegaly. LUNGS: Air entry equal on both sides, no wheezing, crackles or rhonchi noted. No accessory muscles of respiration HEART: Regular rate and rhythm normal, S1 and S2 heard, no Gallop, S3 or Rub Noted, No Gross murmur heard. ABDOMEN: Soft, nontender, and nondistended. Positive bowel sounds. No hepatosplenomegaly was noted. EXTREMITIES: No cyanosis, clubbing, the left foot 2nd toe, edemaouus, has a 1cm ulcer/ with a scab on it, cellulitis and warmth extending on the lateral aspect upto the 2/3 of the foot. NEUROLOGIC: Cranial nerves II through XII are grossly intact. Motor and Sensory System Grossly Intact PSYCHIATRIC: Normal affect, Normal Mood. Appropriate Behavior. SKIN: No ulceration or wounds noted, No jaundice, No rash noted. Medical - H&P: Reslt - Labs CBC & Chem 7: 05/31/17 14:08 05/31/17 14:08 Labs: Short CBC 05/31/17 Range/Units 14:08 WBC 12.2 H (4.5-11.0) K/mcL Hgb 10.8 L (13.5-16.5) g/dL Hct 32.0 L (41.0-55.0) % Plt Count 190 (140-440) K/mcL BMP 05/31/17 14:08 Sodium 136 Potassium 4.1 Chloride 100 Carbon Dioxide 24 BUN 21 H Creatinine 1.0 Glucose 337 H Calcium 9.3 Liver Function 05/31/17 Range/Units 14:08 Total Bilirubin 0.3 (0.0-1.0) mg/dL AST 7 (0-37) U/l ALT 13 (0-40) U/l Alkaline Phosphatase 92 (39-117) U/L Albumin 3.5 (3.2-5.2) gm/dL Medical - H&P: A/P - Narrative A/P Narrative: A/P Diabetic Cellulitis/ Osteomyelitis: MRI pending, check esr, crp, Antibiotics already given in the ER, patient wbc count is up to 12, no fever or chills, bp stable, wound care consult by podiatry. consider PICC line if half-way antibiotics anticipated. DM glucose uncontrolled, given Lantus and sliding scale insulin, just use 10units of lantus, given pt will be NPO MN for likely surgery in AM. HTN: BP stable, hold lisinopril before surgery, resume post op, if bp stable HLD: Resume home medications DVT hep sq Diet, Carb consistent Full code. Social History - Tobacco smoking status: Never smoker
[2017-05-31] MEDS: HYDROmorphone 2 MG/ML SYRINGE IV PRN ×2 (15:58→17:22)
[2017-05-31] MEDS ORDERED: MAGNESIUM HYDROXIDE 30 ML ORAL.SUSP PO PRN (17:39)
[2017-05-31] MEDS ORDERED: VANCOMYCIN PER PHARMACY IV SCH (17:39)
[2017-05-31] MEDS ORDERED: ONDANSETRON 4 MG/2 ML VIAL IV PRN (17:39)
[2017-05-31] MEDS ORDERED: DEXTROSE 50% 50 ML VIAL IV PRN (17:39)
[2017-05-31] MEDS ORDERED: DEXTROSE 31 GM ORAL.SUSP PO PRN (17:39)
[2017-05-31] MEDS ORDERED: SENNOSIDES 1 TABLET PO PRN (17:39)
[2017-05-31] MEDS ORDERED: NALOXONE HCL 0.4 MG/ML VIAL IV PRN (17:39)
[2017-05-31] MEDS: INSULIN LISPRO 1 UNIT/0.01 ML UNIT SQ SCH ×2 (18:35→21:52)
[2017-05-31] MEDS: INSULIN GLARGINE, HUMAN 1 UNIT/0.01 ML SQ SCH ×2 (18:37→21:52)
[2017-05-31] MEDS: LACTATED RINGERS 1,000 ML IV SCH (18:45)
--- NOTE | 2017-05-31 18:49 | Magnetic Resonance Report ---
CLINICAL INFORMATION: Second toe pain - suspect infection COMPARISON: Plain films from 01/30/2017. TECHNIQUE: T1, T1 post Magnevist fat saturation, T2 proton density images were obtained the axial sagittal coronal plane.. FINDINGS: There is complete osteomyelitic destruction of the second proximal phalanx. The entire medullary cavity is filled with nonenhancing purulent material with a thin rim of peripheral enhancement. Necrosis is suspected. Vague increased T2 signal and enhancement is noted within the adjacent second distal phalanx which likely indicates simple infection without necrosis. There is septic arthritis of the second MTP and, likely, the second PIP There are no other regions of osteomyelitis. Moderate hallux valgus and metatarsus abductus noted. There is mild cellulitis and fasciitis throughout the forefoot and midfoot. The joint spaces are unremarkable. IMPRESSION: 1. Complete osteomyelitic destruction of the entire second proximal phalanx. Necrosis is suspected. There are simple osteomyelitis of the second distal phalanx. Septic arthritis of the second MTP and PIP joints. 2. Moderate cellulitis and fasciitis throughout the forefoot and midfoot - more severe in the plantar region 3. Moderate hallux valgus and metatarsus abductus Interpreted and Authenticated by: Ariel Briones 05/31/17
[2017-05-31] MEDS: QUEtiapine 100 MG TABLET PO SCH (21:50)
[2017-05-31] MEDS: SIMVASTATIN 40 MG TABLET PO SCH (21:51)
[2017-05-31] MEDS: GABAPENTIN 300 MG CAPSULE PO SCH (21:51)
[2017-05-31] MEDS: HEPARIN 5,000 UNIT/ML VIAL SQ SCH (21:51)
[2017-05-31] MEDS: DOCUSATE SODIUM 100 MG CAPSULE PO SCH (21:51)
[2017-05-31] MEDS: 0.9 % SODIUM CHLORIDE 10 ML SYRINGE IV SCH (21:53)
[2017-05-31] MEDS: VANCOMYCIN 1,500 MG in 0.9 % SODIUM CHLORIDE 500 ML IV SCH (21:54)
[2017-06-01] MEDS: PIPERACILLIN SODIUM/TAZOBACTAM 3.375 GM in DEXTROSE 5% IN WATER 50 ML IV SCH ×4 (00:22→18:57)
[2017-06-01] MEDS: ACETAMINOPHEN 325 MG TABLET PO PRN (05:24)
[2017-06-01] MEDS: 0.9 % SODIUM CHLORIDE 10 ML SYRINGE IV SCH ×3 (06:04→21:43)
[2017-06-01 06:18] LABS: Basophils # (Auto) 0 K/mcL (0.0-0.3); Basophils % (Auto) 0.3 % (0.0-2.0); Eosinophils # (Auto) 0.1 K/mcL (0.0-0.7); Eosinophils % (Auto) 0.8 % (0.0-7.0); Granulocytes % (Auto) 77.2 % (38.0-78.0); Lymphocytes # (Auto) 1.5 K/mcL (1.5-4.8); Lymphocytes % (Auto) 13.8 % (15.5-49.0); Mean Cell Volume 81.9 fL (80.0-100.0); Monocytes # (Auto) 0.9 K/mcL (0.1-0.9); Monocytes % (Auto) 7.9 % (1.0-12.0); Platelet Count 195 K/mcL (140-440); RBC 3.83 M/mcL (4.50-5.90); Red Cell Distribution Width 13.3 % (11.5-14.5)
[2017-06-01] MEDS: LACTATED RINGERS 1,000 ML IV SCH (06:39)
[2017-06-01 07:12] LABS: C-Reactive Protein 10.7 mg/dl (0.0-0.8)
[2017-06-01 07:15] LABS: ALT/SGPT 11 U/l (0-40); Albumin 3.4 gm/dL (3.2-5.2); Albumin/Globulin Ratio 1.1 (1.0-2.3); Alkaline Phosphatase 78 U/L (39-117); Bilirubin,Direct < 0.2 mg/dL (0.0-0.3); Blood Urea Nitrogen 15 mg/dl (6-20); Gamma Glutamyl Transpeptidase 24 U/L (8-61); Magnesium 1.5 mg/dL (1.6-2.5); Uric Acid 4.3 mg/dL (2.5-8.0)
[2017-06-01] MEDS: INSULIN LISPRO 1 UNIT/0.01 ML UNIT SQ SCH ×4 (07:36→21:42)
[2017-06-01] MEDS ORDERED: MAGNESIUM SULFATE 32.48 MEQ in DEXTROSE 5% IN WATER 100 ML IV ONE (07:49)
--- NOTE | 2017-06-01 09:09 | Orthopedic Consult Note ---
History of Present Illness - [facility] Patient information: Note initiated : 06/01/17 at 9:05 am Service Date, if different from initiated Date: [] Patient: Nicholas Teague 36 y/o M admitted on 05/31/17 for Lt Foot Swelling, Wound on Toe/Diabetic Cellulitis. Chief Complaint: [infected second toe left foot] Consult date: 05/31/17 Requesting physician: Makenzie Parikh Consult reason: other (septic foot infection) History of present illness: 36-year-old male. Long-standing history of bilateral foot infections. 3 months ago he had incision and drainage with intravenous and medical therapy for a gangrenous foot infection the right foot. This is mostly resolved at this point. About 3 weeks ago he was encouraged to be admitted at this hospital for care of an acutely infected left second toe. He denied to admission here stating that he needed to be admitted to [facility]. He decided the toe was looking better and therefore did not pursue advanced medical treatment for left second toe. He was admitted last night to the emergency department with fever chills nausea and pain for left second toe infection. He understands that this is a severe issue which may require amputation. HEART & LUNGS Examination: Inspection: No cardiac heaves or lifts. Symmetrical expansion with respiration, no other wall motions. Palpation: No thrills appreciated. Point of maximal impulse (PMI) (apical impulse) noted at midclavicular line, in fifth intercostal space. Auscultation: Normal S1 and S2, with regular rate and rhythm. S2 > S1 at the base, S1 > S2 at apex. No splitting of the heart sounds heard. No murmur. No S3 or S4, no friction rub. Lungs are clear to auscultation and percussion bilaterally No crackles heard in the lung bases bilaterally Review of Systems Constitutional: as per HPI Nose, mouth and throat: no as per HPI, no epistaxis, no facial pain, no halitosis, no headache(s), no hoarseness, no lip swelling, no mouth lesions, no abnormal hearing, no mouth pain, no nasal congestion, no nasal discharge, no nasal obstruction, no nasal trauma, no neck mass, no neck pain, no nose pain, no odynophagia, no post-nasal drip, no bleeding gums, no sinus pain, no sinus pressure, no sore throat, no throat swelling, no tongue swelling, no vertigo, no other, no change in voice, no dental pain, no disequilibrium, no dizziness, no dry mouth, no dysphagia Breasts: no as per HPI, no change in shape, no mass, no pain, no nipple discharge, no skin changes, no swelling, no other Cardiovascular: no as per HPI, no edema, no irregular heart rhythm, no radiating jaw, neck or arm pain, no leg edema, no leg ulcers, no lightheadedness , no orthopnea, no palpatations, no paroxysmal nocturnal dyspnea, no pedal edema , no acrocyanosis, no radiating pain, no rapid heart rate, no slow heart rate, no syncope, no other, no chest pain, no chest pain at rest, no chest pain with activity, no claudication, no diaphoresis, no dyspnea, no dyspnea on exertion Respiratory: no as per HPI, no pain on inspirtation, no chest congestion, no excessive phlegm production, no change in phlegm color, no pain with cough, no other, no cough, no dyspnea, no hemoptysis, no dyspnea on exertion, no wheezing , no snoring, no stridor Gastrointestinal: no as per HPI, no diarrhea, no dyspepsia, no dysphagia, no early satiety, no excessive flatus, no fecal incontinence, no heartburn, no hematemesis, no hematochezia, no loose stools, no abdominal pain, no melena, no nausea, no odynophagia, no tenesmus, no vomiting, no other, no belching, no bloating, no change in bowel habits, no change in stool character, no coffee ground emesis, no constipation, no cramping Musculoskeletal: as per HPI Musculoskeletal: left: ankle pain, ankle stiffness, foot pain, foot stiffness, foot swelling Integumentary: as per HPI, skin ulcer Medications and Allergies Home Medications Medication Instructions Recorded Confirmed Type lisinopril 20 mg tablet 40 mg PO HS #60 tab 11/24/16 05/31/17 Rx simvastatin 40 mg tablet 40 mg PO HS #90 tab 01/23/17 05/31/17 Rx QUEtiapine FUMARATE [Seroquel] 600 mg PO HS 02/06/17 05/31/17 History Insulin Glargine,Hum.rec.anlog 34 unit SUB-Q QAM 02/12/17 05/31/17 History [Tougirish Solmeloniear] Accu-Chek 1 each FS ACHS strip 02/13/17 05/31/17 Rx Multivit,Ther Iron,Ca,FA & Min 1 tab PO DAILY tab 02/13/17 05/31/17 Rx [Multivitamin W/Minerals] gabapentin 300 mg capsule 300 mg PO TID #90 cap 03/21/17 05/31/17 Rx hydrocodone 10 mg-acetaminophen 1 tab PO .TID-QID #120 tab 05/04/17 05/31/17 Rx 325 mg tablet Allergies Allergy/AdvReac Type Severity Reaction Status Date / Time Hydromorphone [From Dilaudid] AdvReac Mild Nausea/Vomi Verified 05/31/17 17:44 ting Physical Examination - Ankle & Foot left Ankle appearance: swelling, erythema Foot appearance: swelling, erythema, other (ulceration left second toe full thickness with notable increase in mass of toe) Foot swelling: other Assessment and Plan (1) Cellulitis Status: Acute Priority: High Comment: Intravenous antibiotic therapy. operating room cultures and sample from toe. Procedure planned for noon at 2017: 1. amputation left second toe and 2. partial amputation left second metatarsal Qualifiers: Site of cellulitis of extremity: toe (2) Cellulitis of foot, right Status: Acute
--- NOTE | 2017-06-01 11:42 | Brief Operative Note ---
Date of procedure: 06/01/17 Pre-op diagnosis: Osteomyelitis left second toe with septic arthritis Post-op diagnosis: same Procedure: 1. Amputation left second toe with incision and drainage Grafts/Implants: No Anesthesia: GLMA Complications: none Surgeon: Guanaco Teague Estimated blood loss (cc): 20 Tourniquet Time (Minutes): 18 Specimens Removed/Pathology: other (soft tissue and bone second digit left foot) Condition: stable Disposition: floor
[2017-06-01] MEDS ORDERED: PROPOFOL 200 MG/20 ML VIAL IV ONE (11:51)
[2017-06-01] MEDS ORDERED: LIDOCAINE HCL/PF 100 MG/5 ML SYRINGE IV ONE (11:51)
[2017-06-01] MEDS ORDERED: fentaNYL 100 MCG/2 ML VIAL IV ONE (11:51)
[2017-06-01] MEDS ORDERED: ONDANSETRON 4 MG/2 ML VIAL ONE (11:51)
[2017-06-01] MEDS ORDERED: MIDAZOLAM 2 MG/2 ML VIAL ONE (11:51)
[2017-06-01] MEDS ORDERED: DEXAMETHASONE 10 MG/ML VIAL ONE (11:51)
--- NOTE | 2017-06-01 11:56 | Internal Med Progress Note ---
Medical - PN: Subj Patient information: Note initiated : 06/01/17 at 11:53 am Service Date, if different from initiated Date: [] Patient: Nicholas Teague 36 y/o M admitted on 05/31/17 for Lt Foot Swelling, Wound on Toe/Diabetic Cellulitis. Chief Complaint: [] Interval history: Mr. Teague is a 36 year old Male wit h/o DM, presents to the ER for pain in the left toe, the patient notes that the left middle toe started to get infected , an look bad approximately 1 month ago, 3 weeks ago he was advised by his physician to get admitted and have it treated, but he declined and thought it was getting better, the patients toe continue to get worse, it is more swollen , red and has pus drainage. Over the last 48 the pain has gotten worse, redness and swelling has gotten worse, as per the patient he has extracted pus. pain is throbbing, moderate to severe, worse with touch, activity better with pain meds and rest. He denies any other complaints or concerns, he has some dizziness. He denies headache, chest pain, shortness of breath, fever or chills, no rigors , no nausesa / vomiting, no urinary issues, no contipation or diarrhea. The pt was admitted to this hospita a few months ago with DM foot on the right leg, which was debrided and managed by Dr Teague, he received Ertapenum x 6 weeks then. He is supposed to get an MRI of the foot, as per ER provider at around 4. The patient is being admitted to the hospital for further management. Jun 01 patient seen examined no acute overnight isshes, had fever this AM, did not allow blood cultures to be drawn patient pain well controlled Plan for OR today by Podiatry, MRI shows abscess/ Osteomyelitis. Pertinent ROS: Denies headache, dizziness Denies chest pain, palpitations Denies cough or shortness of breath Denies abdominal pain, nausea or vomiting. - Constitutional Vitals: Vital Signs Temp Pulse Resp BP Pulse Ox 98.3 F 110 H 16 132/82 95 06/01/17 08:00 06/01/17 08:00 06/01/17 08:00 06/01/17 08:00 06/01/17 08:00 Period Temp Pulse Resp BP Sys/Santoro Pulse Ox Last 24 Hr 97.8 F-101.9 F 78-110 14-18 120-135/76-87 95-100 Intake and Output 05/31/17 06/01/17 06/01/17 21:59 05:59 13:59 Intake Total 422 / 422 650 / 650 1158 / 1158 Output Total 375 / 375 1100 / 1100 500 / 500 Balance 47 / 47 -450 / -450 658 / 658 Weight 227 lb Intake & Output: Intake & Output 05/31/17 06/01/17 06/01/17 21:59 05:59 13:59 Intake Total 422 / 422 650 / 650 1158 / 1158 Output Total 375 / 375 1100 / 1100 500 / 500 Balance 47 / 47 -450 / -450 658 / 658 Weight 227 lb Intake: IV 422 / 422 50 / 50 1158 / 1158 Lactated Ringers 1,000 ml @ 84 1000 / 1000 mls/hr IV .[id number] [facility] Rx#: [id number] Magnesium Sulfate 32.48 Meq In 108 / 108 Dextrose 5% in Water 100 ml @ 54 mls/hr IV ONCE ONE Rx#: [id number] Zosyn 3.375 gm In Dextrose 5% 50 / 50 50 / 50 50 / 50 in Water 50 ml @ 100 mls/hr IV Q6H [facility] Rx#:[id number] Vancomycin 1,500 mg In Sodium 372 / 372 Chloride 0.9% 500 ml @ 333.3 mls/hr IV ONCE ONE Rx#: [id number] Oral 600 / 600 Output: Void Amount 375 / 375 1100 / 1100 500 / 500 Other: # Voids 1 3 Exam: Constitutional; Afebrile, cooperative, alert, not in distress. Eyes- No icterus, , No periorbital swelling Ears- Ext ear normal, hearing normal to conversation. Neck- Midline trachea, supple Respiratory system: Air Entry equal on both sides, No crackles or wheezing, no rhonchi. CVS- Rate rhythm regular, S1,S2 heard, no gallop, no rub. Abdomen- Soft nontender abdomen, no organomegaly, no tenderness, no guarding or rigidity, MANAGER SUSTAINABILITY- AOOx3, moving all extremities, no gross focal deficit noted. Medical - PN: Obj Da - Labs CBC & Chem 7: 06/01/17 04:31 06/01/17 04:31 Labs: Abnormal Lab Results 06/01/17 06/01/17 06/01/17 04:31 04:31 04:31 WBC RBC Hgb Hct Lymph % (Auto) Gran # Yell # (Auto) ESR 95 H BUN Glucose 200 H Phosphorus 2.3 L Magnesium 1.5 L C-Reactive Protein 10.7 H 06/01/17 05/31/17 05/31/17 04:31 14:08 14:08 WBC 12.2 H RBC 3.83 L 3.91 L Hgb 10.3 L 10.8 L Hct 31.3 L 32.0 L Lymph % (Auto) 13.8 L Gran # 8.5 H 8.5 H Yell # (Auto) 1.1 H ESR BUN 21 H Glucose 337 H Phosphorus Magnesium C-Reactive Protein Meds: Medications Acetaminophen (Tylenol) 650 mg PO Q6HP PRN PRN Reason: PAIN/FEVER > 101 Last Admin: 06/01/17 05:24 Dose: 650 mg Dextrose (Dextrose 50%) 0 ml IV UD PRN PRN Reason: Hypoglycemia Diagnostic Test (Pha) (Accu-Chek) 1 each FS ACHS [facility] Last Admin: 06/01/17 07:35 Dose: 1 each Docusate Sodium (Colace) 100 mg PO BID [facility] Last Admin: 05/31/17 21:51 Dose: 100 mg Gabapentin (Neurontin) 300 mg PO TID [facility] Last Admin: 05/31/17 21:51 Dose: 300 mg Glucose (Insta-Glucose) 15 gm PO PRN PRN PRN Reason: Hypoglycemia Heparin Sodium (Porcine) (Heparin) 5,000 unit SQ Q12 [facility] Last Admin: 05/31/17 21:51 Dose: 5,000 unit Hydromorphone HCl (Dilaudid) 0.5 mg IV Q15MIN PRN PRN Reason: PAIN LEVEL > 6 Last Admin: 05/31/17 17:22 Dose: 0.5 mg Hydromorphone HCl (Dilaudid) 0.5 mg IV Q2HP PRN PRN Reason: PAIN LEVEL > 6 Lactated Ringer's (Lactated Ringers) 1,000 mls @ 84 mls/hr IV .[id number] [facility] Stop: 06/01/17 17:27 Last Admin: 06/01/17 06:39 Dose: 84 mls/hr Piperacillin Sod/Tazobactam (Sod 3.375 gm/ Dextrose) 50 mls @ 100 mls/hr IV Q6H [facility] Last Infusion: 06/01/17 06:40 Dose: Infused Vancomycin HCl 1,500 mg/ (Sodium Chloride) 500 mls @ 333.3 mls/hr IV Q12H [facility] Last Admin: 05/31/17 21:54 Dose: Not Given Insulin Human Lispro (Humalog) 0 unit SQ ACHS [facility] PRN Reason: Protocol Last Admin: 06/01/17 07:36 Dose: 2 unit Magnesium Hydroxide (Milk Of Magnesia) 30 ml PO DAILYP PRN PRN Reason: Constipation Naloxone HCl (Narcan) 0.1 mg IV Q2MIN PRN PRN Reason: Opiate Reversal Ondansetron HCl (Zofran) 4 mg IV Q6HP PRN PRN Reason: Nausea And Vomiting Oxycodone HCl (Roxicodone) 5 mg PO Q4HP PRN PRN Reason: PAIN LEVEL 3-6 Quetiapine Fumarate (Seroquel) 600 mg PO HS [facility] Last Admin: 05/31/17 21:50 Dose: 600 mg Senna (Senokot) 2 tab PO HS PRN PRN Reason: Constipation Simvastatin (Zocor) 40 mg PO [facility] Last Admin: 05/31/17 21:51 Dose: 40 mg Sodium Chloride (Saline Flush) 10 ml IV Q8 [facility] Last Admin: 06/01/17 06:04 Dose: 10 ml Vancomycin HCl (Vancomycin Per Pharmacy) 1 order IV [facility] [place] Medical - PN: A/P - Time Spent With Patient Total time spent is greater than 50% in coordination of care (as documented) at patient's floor/unit and/or counseling patient: - Narrative A/P Narrative: A/P Diabetic Cellulitis/ Osteomyelitis: MRI showed abscess, OM, planned surgery today, patient wbc count better, no fever or chills, bp stable, consider picc if longerm abx needed DM glucose uncontrolled, given Lantus and sliding scale insulin, increase lantus to 15 bid, monitor. . HTN: BP stable, hold lisinopril before surgery, resume post op, if bp stable HLD: Resume home medications DVT hep sq Diet, Carb consistent Full code. Medical - PN: Qual - VTE Deep Vein Thrombosis/Pulmonary Embolism Present on Admission: No
[2017-06-01] MEDS ORDERED: ATROPINE SULFATE 0.4 MG/ML VIAL IV PRN (12:27)
[2017-06-01] MEDS ORDERED: ePHEDrine 50 MG/ML AMPUL IV PRN (12:27)
[2017-06-01] MEDS ORDERED: MEPERIDINE 25 MG/ML SYRINGE IV PRN (12:27)
[2017-06-01] MEDS ORDERED: diphenhydrAMINE 50 MG/ML VIAL IV PRN (12:27)
[2017-06-01] MEDS ORDERED: PROMETHAZINE 25 MG/ML VIAL IV PRN (12:27)
[2017-06-01] MEDS ORDERED: METHOCARBAMOL 1,000 MG/10 ML VIAL IV PRN (12:27)
[2017-06-01] MEDS ORDERED: METOPROLOL TARTRATE 5 MG/5 ML VIAL IV PRN (12:27)
[2017-06-01] MEDS ORDERED: ONDANSETRON 4 MG/2 ML VIAL IV PRN (12:27)
[2017-06-01] MEDS ORDERED: fentaNYL 100 MCG/2 ML VIAL IV PRN (12:27)
[2017-06-01] MEDS ORDERED: FLUMAZENIL 0.1 MG/ML ML IV PRN (12:27)
[2017-06-01] MEDS ORDERED: IPRATROPIUM/ALBUTEROL 3 ML AMPUL.NEB NEB PRN (12:27)
[2017-06-01] MEDS ORDERED: NALOXONE HCL 0.4 MG/ML VIAL IV PRN (12:27)
[2017-06-01] MEDS ORDERED: BUPIVACAINE 0.5% 50 ML VIAL IJ ONE (13:02)
--- NOTE | 2017-06-01 13:33 | Operative Note ---
DATE OF OPERATION: 06/01/2017 PREOPERATIVE DIAGNOSIS: Osteomyelitis, left second toe with septic arthritis. POSTOPERATIVE DIAGNOSIS: Osteomyelitis, left second toe with septic arthritis. PROCEDURE: Amputation of the left second toe with incision and drainage. SURGEON: Guanaco Teague DPM. ANESTHESIA: GLMA. COMPLICATIONS: None. ESTIMATED BLOOD LOSS: 20 mL. TOURNIQUET TIME: 18 minutes. SPECIMENS: Bone and soft tissue, left foot. CONDITION: Stable. DISPOSITION: To floor. PROCEDURE IN DETAIL: The patient was brought to the operating room and placed on the operating table in supine position. The left lower extremity was scrubbed, prepped and draped in the usual aseptic manner. Following establishment of general LMA, an elliptical incision was placed on the second digit. The second digit was noted to have heavily purulent drainage and approximately twice the normal size. There was approximately 5 mL of purulent drainage expressed from the wound prior to inflation of tourniquet which was placed on the left thigh to 250 mmHg. Once the Esmarch was applied, tourniquet was inflated, and a full-thickness incision was created as planned. There was noted to be additional purulent drainage. The metatarsal was grossly broken into several fragments. These were all removed. The area was irrigated with copious amounts of sterile saline via pulse lavage with Lactated Ringer's 3000 mL total. Cultures were taken of the area and sent for anaerobic, aerobic, and Gram stain with sensitivities. Closure was performed with 2-0 nylon in a horizontal interrupted suture fashion and simple interrupted fashion as well. A total of 10 mL 0.5% Marcaine plain was used for postoperative anesthesia. A dressing was applied consisting of Xeroform, 4 x 4 gauze, Kerlix, and Chapito wrap. The patient was transferred to the postoperative care unit to be followed up inpatient with antibiotic therapy. ADITYA:edison Job ID: [id number] Doc ID: [id number] Guanaco Teague DPM
[2017-06-01] MEDS: HYDROmorphone 2 MG/ML SYRINGE IV PRN ×4 (13:48→22:29)
[2017-06-01] MEDS: DOCUSATE SODIUM 100 MG CAPSULE PO SCH ×2 (13:55→21:37)
[2017-06-01] MEDS: GABAPENTIN 300 MG CAPSULE PO SCH ×3 (13:55→21:37)
[2017-06-01] MEDS: HEPARIN 5,000 UNIT/ML VIAL SQ SCH ×2 (14:00→21:40)
[2017-06-01] MEDS: VANCOMYCIN 1,500 MG in 0.9 % SODIUM CHLORIDE 500 ML IV SCH ×2 (14:03→21:36)
[2017-06-01] MEDS: INSULIN GLARGINE, HUMAN 1 UNIT/0.01 ML SQ SCH (19:22)
[2017-06-01] MEDS ORDERED: INSULIN GLARGINE, HUMAN 1 UNIT/0.01 ML SQ SCH (21:00)
[2017-06-01] MEDS: QUEtiapine 100 MG TABLET PO SCH (21:37)
[2017-06-01] MEDS: SIMVASTATIN 40 MG TABLET PO SCH (21:38)
[2017-06-01] MEDS: oxyCODONE HCL 5 MG TABLET PO PRN (21:40)
[2017-06-02] MEDS: PIPERACILLIN SODIUM/TAZOBACTAM 3.375 GM in DEXTROSE 5% IN WATER 50 ML IV SCH ×5 (00:02→23:53)
[2017-06-02] MEDS: INSULIN LISPRO 1 UNIT/0.01 ML UNIT SQ SCH ×7 (00:08→21:11)
[2017-06-02] MEDS: oxyCODONE HCL 5 MG TABLET PO PRN ×5 (02:17→22:45)
[2017-06-02] MEDS: 0.9 % SODIUM CHLORIDE 10 ML SYRINGE IV SCH ×3 (05:43→21:12)
[2017-06-02 06:33] LABS: Basophils # (Auto) 0 K/mcL (0.0-0.3); Basophils % (Auto) 0.1 % (0.0-2.0); Eosinophils # (Auto) 0 K/mcL (0.0-0.7); Eosinophils % (Auto) 0.2 % (0.0-7.0); Granulocytes % (Auto) 78.9 % (38.0-78.0); Lymphocytes # (Auto) 1.6 K/mcL (1.5-4.8); Lymphocytes % (Auto) 11.7 % (15.5-49.0); Mean Cell Volume 81.8 fL (80.0-100.0); Mean Corpuscular HGB Conc 33.3 g/dL (31.0-36.0); Mean Corpuscular Hemoglobin 27.3 pg (26.0-34.0); Monocytes # (Auto) 1.2 K/mcL (0.1-0.9); Monocytes % (Auto) 9.1 % (1.0-12.0); Platelet Count 226 K/mcL (140-440); RBC 3.84 M/mcL (4.50-5.90)
[2017-06-02 07:14] LABS: ALT/SGPT 12 U/l (0-40); Albumin 3.2 gm/dL (3.2-5.2); Albumin/Globulin Ratio 0.9 (1.0-2.3); Alkaline Phosphatase 89 U/L (39-117); Bilirubin,Direct < 0.2 mg/dL (0.0-0.3); Blood Urea Nitrogen 18 mg/dl (6-20); Gamma Glutamyl Transpeptidase 27 U/L (8-61); Magnesium 2.1 mg/dL (1.6-2.5); Uric Acid 3.3 mg/dL (2.5-8.0)
[2017-06-02] MEDS: HEPARIN 5,000 UNIT/ML VIAL SQ SCH ×2 (08:18→21:10)
[2017-06-02] MEDS: INSULIN GLARGINE, HUMAN 1 UNIT/0.01 ML SQ SCH ×2 (08:18→21:11)
[2017-06-02] MEDS: GABAPENTIN 300 MG CAPSULE PO SCH ×3 (08:18→21:10)
[2017-06-02] MEDS: DOCUSATE SODIUM 100 MG CAPSULE PO SCH ×2 (08:19→21:10)
[2017-06-02] MEDS: VANCOMYCIN 1,500 MG in 0.9 % SODIUM CHLORIDE 500 ML IV SCH ×2 (11:31→21:05)
--- NOTE | 2017-06-02 12:09 | Internal Med Progress Note ---
Medical - PN: Subj Patient information: Note initiated : 06/02/17 at 12:04 pm Service Date, if different from initiated Date: [] Patient: Nicholas Teague 36 y/o M admitted on 05/31/17 for Lt Foot Swelling, Wound on Toe/Diabetic Cellulitis. Chief Complaint: [] Interval history: Mr. Teague is a 36 year old Male wit h/o DM, presents to the ER for pain in the left toe, the patient notes that the left middle toe started to get infected , an look bad approximately 1 month ago, 3 weeks ago he was advised by his physician to get admitted and have it treated, but he declined and thought it was getting better, the patients toe continue to get worse, it is more swollen , red and has pus drainage. Over the last 48 the pain has gotten worse, redness and swelling has gotten worse, as per the patient he has extracted pus. pain is throbbing, moderate to severe, worse with touch, activity better with pain meds and rest. He denies any other complaints or concerns, he has some dizziness. He denies headache, chest pain, shortness of breath, fever or chills, no rigors , no nausesa / vomiting, no urinary issues, no contipation or diarrhea. The pt was admitted to this hospital a few months ago with DM foot on the right leg, which was debrided and managed by Dr Teague, he received Ertapenum x 6 weeks then. He is supposed to get an MRI of the foot, as per ER provider at around 4. The patient is being admitted to the hospital for further management. Jun 01 patient seen examined no acute overnight issues, had fever this AM, did not allow blood cultures to be drawn patient pain well controlled Plan for OR today by Podiatry, MRI shows abscess/ Osteomyelitis. Jun 02 Patient seen, and examined, no acute overnight issues, pt has pain at the site of surery, no other issues staph aureus on microbiology, sensitivities pending. Pertinent ROS: Denies headache, dizziness Denies chest pain, palpitations Denies cough or shortness of breath Denies abdominal pain, nausea or vomiting. - Constitutional Vitals: Vital Signs Temp Pulse Resp BP Pulse Ox 98.0 F 86 16 104/64 93 06/02/17 11:08 06/02/17 03:56 06/02/17 11:08 06/02/17 11:08 06/02/17 11:08 Period Temp Pulse Resp BP Sys/Santoro Pulse Ox Last 24 Hr 97.8 F-99.0 F 86-111 12-20 96-137/49-87 93-100 Intake and Output 06/01/17 06/02/17 06/02/17 21:59 05:59 13:59 Intake Total 720 / 720 4000 / 4000 1210 / 1210 Output Total 2550 / 2550 2800 / 2800 375 / 375 Balance -1830 / -1830 1200 / 1200 835 / 835 Weight 226 lb 8 oz Intake & Output: Intake & Output 06/01/17 06/02/17 06/02/17 21:59 05:59 13:59 Intake Total 720 / 720 4000 / 4000 1210 / 1210 Output Total 2550 / 2550 2800 / 2800 375 / 375 Balance -1830 / -1830 1200 / 1200 835 / 835 Weight 226 lb 8 oz Intake: IV 600 / 600 550 / 550 50 / 50 Zosyn 3.375 gm In Dextrose 5% 100 / 100 50 / 50 50 / 50 in Water 50 ml @ 100 mls/hr IV Q6H [facility] Rx#:[id number] Vancomycin 1,500 mg In Sodium 500 / 500 500 / 500 Chloride 0.9% 500 ml @ 333.3 mls/hr IV Q12H [facility] Rx#: [id number] Oral 120 / 120 3450 / 3450 1160 / 1160 Output: Void Amount 2550 / 2550 2800 / 2800 375 / 375 Other: Meal Dinner Percent of Meal Consumed 100% Feeding Ability Independent # Bowel Movements 1 Exam: Constitutional; Afebrile, cooperative, alert, not in distress. Eyes- No icterus, , No periorbital swelling Ears- Ext ear normal, hearing normal to conversation. Neck- Midline trachea, supple Respiratory system: Air Entry equal on both sides, No crackles or wheezing, no rhonchi. CVS- Rate rhythm regular, S1,S2 heard, no gallop, no rub. Abdomen- Soft nontender abdomen, no organomegaly, no tenderness, no guarding or rigidity, PIPEFITTER- AOOx3, moving all extremities, no gross focal deficit noted. Medical - PN: Obj Da - Labs CBC & Chem 7: 06/02/17 04:55 06/02/17 04:55 Labs: Abnormal Lab Results 06/02/17 06/02/17 06/01/17 04:55 04:55 04:31 WBC 13.6 H RBC 3.84 L Hgb 10.5 L Hct 31.4 L Gran % 78.9 H Lymph % (Auto) 11.7 L Gran # 10.7 H [place] # (Auto) 1.2 H ESR BUN Glucose 258 H Phosphorus Magnesium C-Reactive Protein 10.7 H Albumin/Globulin Ratio 0.9 L 06/01/17 06/01/17 06/01/17 04:31 04:31 04:31 WBC RBC 3.83 L Hgb 10.3 L Hct 31.3 L Gran % Lymph % (Auto) 13.8 L Gran # 8.5 H [place] # (Auto) ESR 95 H BUN Glucose 200 H Phosphorus 2.3 L Magnesium 1.5 L C-Reactive Protein Albumin/Globulin Ratio 05/31/17 05/31/17 14:08 14:08 WBC 12.2 H RBC 3.91 L Hgb 10.8 L Hct 32.0 L Gran % Lymph % (Auto) Gran # 8.5 H [place] # (Auto) 1.1 H ESR BUN 21 H Glucose 337 H Phosphorus Magnesium C-Reactive Protein Albumin/Globulin Ratio Meds: Medications Acetaminophen (Tylenol) 650 mg PO Q6HP PRN PRN Reason: PAIN/FEVER > 101 Last Admin: 06/01/17 05:24 Dose: 650 mg Dextrose (Dextrose 50%) 0 ml IV UD PRN PRN Reason: Hypoglycemia Diagnostic Test (Pha) (Accu-Chek) 1 each FS ACHS [facility] Last Admin: 06/02/17 11:32 Dose: 1 each Docusate Sodium (Colace) 100 mg PO BID [facility] Last Admin: 06/02/17 08:19 Dose: 100 mg Gabapentin (Neurontin) 300 mg PO TID [facility] Last Admin: 06/02/17 08:18 Dose: 300 mg Glucose (Insta-Glucose) 15 gm PO PRN PRN PRN Reason: Hypoglycemia Heparin Sodium (Porcine) (Heparin) 5,000 unit SQ Q12 [facility] Last Admin: 06/02/17 08:18 Dose: 5,000 unit Hydromorphone HCl (Dilaudid) 0.5 mg IV Q2HP PRN PRN Reason: PAIN LEVEL > 6 Last Admin: 06/01/17 22:29 Dose: 0.5 mg Piperacillin Sod/Tazobactam (Sod 3.375 gm/ Dextrose) 50 mls @ 100 mls/hr IV Q6H [facility] Last Infusion: 06/02/17 06:10 Dose: Infused Vancomycin HCl 1,500 mg/ (Sodium Chloride) 500 mls @ 333.3 mls/hr IV Q12H [facility] Last Admin: 06/02/17 11:31 Dose: 333.3 mls/hr Insulin Glargine (Lantus) 20 unit SQ BID [facility] Last Admin: 06/02/17 08:18 Dose: 20 unit Insulin Human Lispro (Humalog) 0 unit SQ ACHS [facility] PRN Reason: Protocol Last Admin: 06/02/17 08:18 Dose: 12 unit Magnesium Hydroxide (Milk Of Magnesia) 30 ml PO DAILYP PRN PRN Reason: Constipation Naloxone HCl (Narcan) 0.1 mg IV Q2MIN PRN PRN Reason: Opiate Reversal Ondansetron HCl (Zofran) 4 mg IV Q6HP PRN PRN Reason: Nausea And Vomiting Oxycodone HCl (Roxicodone) 5 mg PO Q4HP PRN PRN Reason: PAIN LEVEL 3-6 Last Admin: 06/02/17 08:18 Dose: 5 mg Quetiapine Fumarate (Seroquel) 600 mg PO [facility] Last Admin: 06/01/17 21:37 Dose: 600 mg Senna (Senokot) 2 tab PO HS PRN PRN Reason: Constipation Last Admin: 06/01/17 21:38 Dose: 2 tab Simvastatin (Zocor) 40 mg PO [facility] Last Admin: 06/01/17 21:38 Dose: 40 mg Sodium Chloride (Saline Flush) 10 ml IV Q8 [facility] Last Admin: 06/02/17 05:43 Dose: 10 ml Vancomycin HCl (Vancomycin Per Pharmacy) 1 order IV UD [facility] Medical - PN: A/P - Time Spent With Patient Total time spent is greater than 50% in coordination of care (as documented) at patient's floor/unit and/or counseling patient: - Narrative A/P Narrative: A/P Diabetic Cellulitis/ Osteomyelitis:s/p debridement, as per podiatry, all infected material taken out, pt will need 2 weeks of ABX for cellulitis, STaph aureus in tissue culture, await sensitivites. DM glucose uncontrolled, adjust insulin dosing and ssi. HTN: BP stable, hold lisinopril before surgery, resume post op once bp improves , bp on the lower end today. HLD: Resume home medications DVT hep sq Diet, Carb consistent Full code. Medical - PN: Qual - VTE Deep Vein Thrombosis/Pulmonary Embolism Present on Admission: No
--- NOTE | 2017-06-02 12:10 | Orthopedic Progress Note ---
Subjective Patient information: Note initiated : 06/02/17 at 12:07 pm Service Date, if different from initiated Date: [] Patient: Nicholas Teague 36 y/o M admitted on 05/31/17 for Lt Foot Swelling, Wound on Toe/Diabetic Cellulitis. Chief Complaint: [Right toe was removed after surgery] Principal diagnosis: Infected left second toe Interval history: No fever chills nausea vomiting shortness of breath diarrhea or other problems. Pertinent ROS: No coughing wheezing abdominal pain or diarrhea Objective Vital signs: Vital Signs Temp Pulse Resp BP BP Pulse Ox 06/02/17 11:08 98.0 F 16 104/64 93 06/02/17 06:21 98.4 F 16 104/66 93 06/02/17 03:56 97.8 F 86 16 120/78 94 06/01/17 23:51 98.2 F 97 H 16 120/64 94 06/01/17 20:00 99.0 F H 92 H 18 137/84 96 06/01/17 17:15 112/71 97 06/01/17 17:00 115/78 97 06/01/17 16:45 111 H 127/70 94 06/01/17 16:30 125/81 94 06/01/17 16:15 120/78 95 06/01/17 16:00 113/74 100 06/01/17 15:45 116/87 98 06/01/17 15:15 132/85 99 06/01/17 13:14 98.3 F 91 H 20 118/65 96 06/01/17 13:07 91 H 19 112/63 97 06/01/17 13:02 92 H 14 116/65 97 06/01/17 12:57 90 19 106/62 95 06/01/17 12:50 91 H 18 101/59 98 06/01/17 12:45 92 H 12 102/59 95 06/01/17 12:40 93 H 20 96/55 95 06/01/17 12:35 92 H 14 98/49 98 Intake and Output 06/01/17 06/02/17 06/02/17 21:59 05:59 13:59 Intake Total 720 / 720 4000 / 4000 1210 / 1210 Output Total 2550 / 2550 2800 / 2800 375 / 375 Balance -1830 / -1830 1200 / 1200 835 / 835 Intake: IV 600 / 600 550 / 550 50 / 50 Zosyn 3.375 gm In Dextrose 5% 100 / 100 50 / 50 50 / 50 in Water 50 ml @ 100 mls/hr IV Q6H [facility] Rx#:[id number] Vancomycin 1,500 mg In Sodium 500 / 500 500 / 500 Chloride 0.9% 500 ml @ 333.3 mls/hr IV Q12H [facility] Rx#: [id number] Oral 120 / 120 3450 / 3450 1160 / 1160 Output: Void Amount 2550 / 2550 2800 / 2800 375 / 375 Other: Meal Dinner Percent of Meal Consumed 100% Feeding Ability Independent # Bowel Movements 1 Weight 226 lb 8 oz Intake & Output: Intake & Output 06/01/17 06/02/17 06/02/17 21:59 05:59 13:59 Intake Total 720 / 720 4000 / 4000 1210 / 1210 Output Total 2550 / 2550 2800 / 2800 375 / 375 Balance -1830 / -1830 1200 / 1200 835 / 835 Weight 226 lb 8 oz Intake: IV 600 / 600 550 / 550 50 / 50 Zosyn 3.375 gm In Dextrose 5% 100 / 100 50 / 50 50 / 50 in Water 50 ml @ 100 mls/hr IV Q6H [facility] Rx#:[id number] Vancomycin 1,500 mg In Sodium 500 / 500 500 / 500 Chloride 0.9% 500 ml @ 333.3 mls/hr IV Q12H [facility] Rx#: [id number] Oral 120 / 120 3450 / 3450 1160 / 1160 Output: Void Amount 2550 / 2550 2800 / 2800 375 / 375 Other: Meal Dinner Percent of Meal Consumed 100% Feeding Ability Independent # Bowel Movements 1 Incision: Yes clean and dry Incision clean and dry: Yes Dressing: Yes clean Weight bearing status: partial (Heel touch only operative extremity) - Periperhal Pulses Peripheral pulses: 1+: dorsalis pedis (L), dorsalis pedis (R), posterior tibialis (L), posterior tibialis (R) - Labs CBC & BMP: 06/02/17 04:55 06/02/17 04:55 Labs: 06/02/17 06/01/17 05/31/17 04:55 04:31 14:08 Hgb 10.5 L 10.3 L 10.8 L Hct 31.4 L 31.3 L 32.0 L Assessment and Plan (1) Cellulitis Status: Acute Priority: High Comment: Wound cultures showing heavy staph growth, susceptibility to follow, will address antibiotic therapy based on culture results Continue to keep dressings close dry and intact We will change dressings on postop day 3 if still admitted Partial weightbearing to heel only acceptable for time being. Qualifiers: Site of cellulitis of extremity: toe (2) Cellulitis of foot, right Status: Acute
[2017-06-02] MEDS: HYDROmorphone 2 MG/ML SYRINGE IV PRN (21:01)
[2017-06-02] MEDS: SIMVASTATIN 40 MG TABLET PO SCH (21:10)
[2017-06-02] MEDS: QUEtiapine 100 MG TABLET PO SCH (21:10)
[2017-06-03] MEDS: oxyCODONE HCL 5 MG TABLET PO PRN ×4 (04:45→20:27)
[2017-06-03] MEDS: PIPERACILLIN SODIUM/TAZOBACTAM 3.375 GM in DEXTROSE 5% IN WATER 50 ML IV SCH ×3 (05:54→17:58)
[2017-06-03] MEDS: 0.9 % SODIUM CHLORIDE 10 ML SYRINGE IV SCH ×3 (05:54→20:26)
[2017-06-03 05:57] LABS: Basophils # (Auto) 0 K/mcL (0.0-0.3); Basophils % (Auto) 0.4 % (0.0-2.0); Eosinophils # (Auto) 0.2 K/mcL (0.0-0.7); Eosinophils % (Auto) 2.1 % (0.0-7.0); Granulocytes % (Auto) 56.1 % (38.0-78.0); Lymphocytes # (Auto) 3.8 K/mcL (1.5-4.8); Lymphocytes % (Auto) 34.4 % (15.5-49.0); Mean Cell Volume 82.2 fL (80.0-100.0); Mean Corpuscular Hemoglobin 27.2 pg (26.0-34.0); Monocytes # (Auto) 0.8 K/mcL (0.1-0.9); Platelet Count 230 K/mcL (140-440); RBC 3.46 M/mcL (4.50-5.90); Red Cell Distribution Width 13.3 % (11.5-14.5)
[2017-06-03 06:19] LABS: ALT/SGPT 13 U/l (0-40); Albumin 2.9 gm/dL (3.2-5.2); Albumin/Globulin Ratio 0.9 (1.0-2.3); Alkaline Phosphatase 83 U/L (39-117); Bilirubin,Direct < 0.2 mg/dL (0.0-0.3); Blood Urea Nitrogen 20 mg/dl (6-20); Gamma Glutamyl Transpeptidase 27 U/L (8-61); Magnesium 1.7 mg/dL (1.6-2.5); Uric Acid 2.8 mg/dL (2.5-8.0)
[2017-06-03] MEDS: HYDROmorphone 2 MG/ML SYRINGE IV PRN ×3 (08:25→22:40)
[2017-06-03] MEDS: INSULIN LISPRO 1 UNIT/0.01 ML UNIT SQ SCH ×4 (08:25→20:24)
[2017-06-03] MEDS: MAGNESIUM OXIDE 400 MG TABLET PO SCH ×2 (08:26→20:25)
[2017-06-03] MEDS: DOCUSATE SODIUM 100 MG CAPSULE PO SCH ×2 (08:26→20:23)
[2017-06-03] MEDS: HEPARIN 5,000 UNIT/ML VIAL SQ SCH ×2 (08:26→20:23)
[2017-06-03] MEDS: GABAPENTIN 300 MG CAPSULE PO SCH ×3 (08:26→20:25)
[2017-06-03] MEDS ORDERED: INSULIN GLARGINE, HUMAN 1 UNIT/0.01 ML SQ SCH (09:00)
[2017-06-03] MEDS: VANCOMYCIN 1,500 MG in 0.9 % SODIUM CHLORIDE 500 ML IV SCH ×2 (10:05→20:26)
--- NOTE | 2017-06-03 10:07 | Orthopedic Progress Note ---
Subjective Patient information: Note initiated : 06/03/17 at 9:58 am Service Date, if different from initiated Date: [] Patient: Nicholas Teague 36 y/o M admitted on 05/31/17 for Lt Foot Swelling, Wound on Toe/Diabetic Cellulitis. Chief Complaint: [My toe hurts] Principal diagnosis: Infected left second toe Interval history: No real interval changes. He continues to have intermittent pain to the surgical sites of the left second toe amputation. Pertinent ROS: No coughing wheezing shortness of breath diarrhea fever chills nausea vomiting. Objective Vital signs: Vital Signs Temp Pulse Resp BP BP Pulse Ox 06/03/17 07:50 98.4 F 16 110/68 95 06/03/17 04:26 98.1 F 79 16 111/66 95 06/02/17 23:41 98.2 F 87 16 103/62 93 06/02/17 20:00 98.4 F 90 18 150/90 98 06/02/17 16:00 98.0 F 16 105/61 96 06/02/17 11:08 98.0 F 16 104/64 93 Intake and Output 06/02/17 06/03/17 06/03/17 21:59 05:59 13:59 Intake Total 980 / 980 1650 / 1650 Output Total 1050 / 1050 700 / 700 Balance 980 / 980 600 / 600 -700 / -700 Intake: IV 100 / 100 50 / 50 Zosyn 3.375 gm In Dextrose 5% 100 / 100 50 / 50 in Water 50 ml @ 100 mls/hr IV Q6H [facility] Rx#:[id number] Oral 880 / 880 1600 / 1600 Output: Void Amount 1050 / 1050 700 / 700 Other: Meal Dinner 3 beef sticks & 2 [place] bars Percent of Meal Consumed 100% 100% Feeding Ability Assist with Tray Set Up Independent Weight 221 lb 8 oz Intake & Output: Intake & Output 06/02/17 06/03/17 06/03/17 21:59 05:59 13:59 Intake Total 980 / 980 1650 / 1650 Output Total 1050 / 1050 700 / 700 Balance 980 / 980 600 / 600 -700 / -700 Weight 221 lb 8 oz Intake: IV 100 / 100 50 / 50 Zosyn 3.375 gm In Dextrose 5% 100 / 100 50 / 50 in Water 50 ml @ 100 mls/hr IV Q6H [facility] Rx#:[id number] Oral 880 / 880 1600 / 1600 Output: Void Amount 1050 / 1050 700 / 700 Other: Meal Dinner 3 beef sticks & 2 [place] bars Percent of Meal Consumed 100% 100% Feeding Ability Assist with Tray Set Up Independent Incision: Yes clean and dry Incision clean and dry: Yes Dressing: Yes clean, Yes dry, Yes intact Neurological exam IM: Yes abnormal gait (Heel touch only) - Periperhal Pulses Peripheral pulses: 1+: dorsalis pedis (L), dorsalis pedis (R), posterior tibialis (L), posterior tibialis (R) - Labs CBC & BMP: 06/03/17 05:05 06/03/17 05:05 Labs: 06/03/17 06/02/17 06/01/17 05:05 04:55 04:31 Hgb 9.4 L 10.5 L 10.3 L Hct 28.5 L 31.4 L 31.3 L 05/31/17 14:08 Hgb 10.8 L Hct 32.0 L Assessment and Plan (1) Cellulitis Status: Acute Priority: High Comment: Heavy staph growth, sensitivities to follow. Continue pain management. Dressings will be changed tomorrow with Xeroform 4 x 4 gauze Kerlix [place] wrap. We will likely managed with outpatient oral antibiotic therapy and oral pain control. Qualifiers: Site of cellulitis of extremity: toe (2) Cellulitis of foot, right Status: Acute
--- NOTE | 2017-06-03 12:33 | Internal Med Progress Note ---
Medical - PN: Subj Patient information: Note initiated : 06/03/17 at 12:29 pm Service Date, if different from initiated Date: [] Patient: Nicholas Teague 36 y/o M admitted on 05/31/17 for Lt Foot Swelling, Wound on Toe/Diabetic Cellulitis. Chief Complaint: [] Interval history: Mr. Teague is a 36 year old Male wit h/o DM, presents to the ER for pain in the left toe, the patient notes that the left middle toe started to get infected , an look bad approximately 1 month ago, 3 weeks ago he was advised by his physician to get admitted and have it treated, but he declined and thought it was getting better, the patients toe continue to get worse, it is more swollen , red and has pus drainage. Over the last 48 the pain has gotten worse, redness and swelling has gotten worse, as per the patient he has extracted pus. pain is throbbing, moderate to severe, worse with touch, activity better with pain meds and rest. He denies any other complaints or concerns, he has some dizziness. He denies headache, chest pain, shortness of breath, fever or chills, no rigors , no nausesa / vomiting, no urinary issues, no contipation or diarrhea. The pt was admitted to this hospital a few months ago with DM foot on the right leg, which was debrided and managed by Dr Teague, he received Ertapenum x 6 weeks then. He is supposed to get an MRI of the foot, as per ER provider at around 4. The patient is being admitted to the hospital for further management. Jun 01 patient seen examined no acute overnight issues, had fever this AM, did not allow blood cultures to be drawn patient pain well controlled Plan for OR today by Podiatry, MRI shows abscess/ Osteomyelitis. Jun 02 Patient seen, and examined, no acute overnight issues, pt has pain at the site of surgery, no other issues staph aureus on microbiology, sensitivities pending. Jun 03 Pt seen examined, sleepy on my eval wound cultures back as mssa staphy will only need oral abx, augmentin for 14 days othewise doingw ell cut back on iv pain meds and start on celecoxib and see how he does. has been seen by podiatry, will change dressing tomorrow continue iv abx x 1 more day, then plan d/c Pertinent ROS: Denies headache, dizziness Denies chest pain, palpitations Denies cough or shortness of breath Denies abdominal pain, nausea or vomiting. - Constitutional Vitals: Vital Signs Temp Pulse Resp BP Pulse Ox 98.1 F 79 18 147/96 96 06/03/17 11:54 06/03/17 04:26 06/03/17 11:54 06/03/17 11:54 06/03/17 11:54 Period Temp Pulse Resp BP Sys/Santoro Pulse Ox Last 24 Hr 98.0 F-98.4 F 79-90 16-18 103-150/61-96 93-98 Intake and Output 06/02/17 06/03/17 06/03/17 21:59 05:59 13:59 Intake Total 980 / 980 2150 / 2150 290 / 290 Output Total 1050 / 1050 1775 / 1775 Balance 980 / 980 1100 / 1100 -1485 / -1485 Weight 221 lb 8 oz Intake & Output: Intake & Output 06/02/17 06/03/17 06/03/17 21:59 05:59 13:59 Intake Total 980 / 980 2150 / 2150 290 / 290 Output Total 1050 / 1050 1775 / 1775 Balance 980 / 980 1100 / 1100 -1485 / -1485 Weight 221 lb 8 oz Intake: IV 100 / 100 550 / 550 50 / 50 Zosyn 3.375 gm In Dextrose 5% 100 / 100 50 / 50 50 / 50 in Water 50 ml @ 100 mls/hr IV Q6H [facility] Rx#:[id number] Vancomycin 1,500 mg In Sodium 500 / 500 Chloride 0.9% 500 ml @ 333.3 mls/hr IV Q12H [facility] Rx#: [id number] Oral 880 / 880 1600 / 1600 240 / 240 Output: Void Amount 1050 / 1050 1775 / 1775 Other: Meal Dinner 3 beef sticks & 2 [place] bars Breakfast Percent of Meal Consumed 100% 100% 100% Feeding Ability Assist with Tray Set Up Independent Independent Exam: Constitutional; Afebrile, cooperative, alert, not in distress. Eyes- No icterus, , No periorbital swelling Ears- Ext ear normal, hearing normal to conversation. Neck- Midline trachea, supple Respiratory system: Air Entry equal on both sides, No crackles or wheezing, no rhonchi. CVS- Rate rhythm regular, S1,S2 heard, no gallop, no rub. 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 Medical - PN: Obj Da - Labs CBC & Chem 7: 06/03/17 05:05 06/03/17 05:05 Labs: Abnormal Lab Results 06/03/17 06/03/17 06/02/17 05:05 05:05 04:55 WBC RBC 3.46 L Hgb 9.4 L Hct 28.5 L Gran % Lymph % (Auto) Gran # [place] # (Auto) ESR BUN Glucose 257 H 258 H Phosphorus Magnesium C-Reactive Protein Albumin 2.9 L Albumin/Globulin Ratio 0.9 L 0.9 L Triglycerides 173 H 06/02/17 06/01/17 06/01/17 04:55 04:31 04:31 WBC 13.6 H RBC 3.84 L Hgb 10.5 L Hct 31.4 L Gran % 78.9 H Lymph % (Auto) 11.7 L Gran # 10.7 H [place] # (Auto) 1.2 H ESR 95 H BUN Glucose Phosphorus Magnesium C-Reactive Protein 10.7 H Albumin Albumin/Globulin Ratio Triglycerides 06/01/17 06/01/17 05/31/17 04:31 04:31 14:08 WBC RBC 3.83 L Hgb 10.3 L Hct 31.3 L Gran % Lymph % (Auto) 13.8 L Gran # 8.5 H [place] # (Auto) ESR BUN 21 H Glucose 200 H 337 H Phosphorus 2.3 L Magnesium 1.5 L C-Reactive Protein Albumin Albumin/Globulin Ratio Triglycerides 05/31/17 14:08 WBC 12.2 H RBC 3.91 L Hgb 10.8 L Hct 32.0 L Gran % Lymph % (Auto) Gran # 8.5 H [place] # (Auto) 1.1 H ESR BUN Glucose Phosphorus Magnesium C-Reactive Protein Albumin Albumin/Globulin Ratio Triglycerides Meds: Medications Acetaminophen (Tylenol) 650 mg PO Q6HP PRN PRN Reason: PAIN/FEVER > 101 Last Admin: 06/01/17 05:24 Dose: 650 mg Celecoxib (Celebrex) 200 mg PO DAILY [facility] Dextrose (Dextrose 50%) 0 ml IV UD PRN PRN Reason: Hypoglycemia Diagnostic Test (Pha) (Accu-Chek) 1 each FS ACHS [facility] Last Admin: 06/03/17 11:44 Dose: 1 each Docusate Sodium (Colace) 100 mg PO BID [facility] Last Admin: 06/03/17 08:26 Dose: 100 mg Gabapentin (Neurontin) 300 mg PO TID [facility] Last Admin: 06/03/17 08:26 Dose: 300 mg Glucose (Insta-Glucose) 15 gm PO PRN PRN PRN Reason: Hypoglycemia Heparin Sodium (Porcine) (Heparin) 5,000 unit SQ Q12 [facility] Last Admin: 06/03/17 08:26 Dose: 5,000 unit Hydromorphone HCl (Dilaudid) 0.5 mg IV Q2HP PRN PRN Reason: PAIN LEVEL > 6 Last Admin: 06/03/17 08:25 Dose: 0.5 mg Piperacillin Sod/Tazobactam (Sod 3.375 gm/ Dextrose) 50 mls @ 100 mls/hr IV Q6H [facility] Last Admin: 06/03/17 12:19 Dose: 100 mls/hr Vancomycin HCl 1,500 mg/ (Sodium Chloride) 500 mls @ 333.3 mls/hr IV Q12H [facility] Last Admin: 06/03/17 10:05 Dose: 333.3 mls/hr Insulin Glargine (Lantus) 25 unit SQ BID [facility] Last Admin: 06/03/17 08:26 Dose: 25 unit Insulin Human Lispro (Humalog) 0 unit SQ ACHS [facility] PRN Reason: Protocol Last Admin: 06/03/17 12:05 Dose: 6 unit Magnesium Hydroxide (Milk Of Magnesia) 30 ml PO DAILYP PRN PRN Reason: Constipation Magnesium Oxide (Magnesium Oxide) 400 mg PO BID [facility] Last Admin: 06/03/17 08:26 Dose: 400 mg Naloxone HCl (Narcan) 0.1 mg IV Q2MIN PRN PRN Reason: Opiate Reversal Ondansetron HCl (Zofran) 4 mg IV Q6HP PRN PRN Reason: Nausea And Vomiting Oxycodone HCl (Roxicodone) 5 mg PO Q4HP PRN PRN Reason: PAIN LEVEL 3-6 Last Admin: 06/03/17 12:04 Dose: 5 mg Quetiapine Fumarate (Seroquel) [address] [facility] Last Admin: 06/02/17 21:10 Dose: 600 mg Senna (Senokot) 2 tab PO HS PRN PRN Reason: Constipation Last Admin: 06/01/17 21:38 Dose: 2 tab Simvastatin (Zocor) 40 mg PO HS [facility] Last Admin: 06/02/17 21:10 Dose: 40 mg Sodium Chloride (Saline Flush) 10 ml IV Q8 [facility] Last Admin: 06/03/17 05:54 Dose: 10 ml Vancomycin HCl (Vancomycin Per Pharmacy) 1 order IV UD [facility] Medical - PN: A/P - Time Spent With Patient Total time spent is greater than 50% in coordination of care (as documented) at patient's floor/unit and/or counseling patient: - Narrative A/P Narrative: A/P Diabetic Cellulitis/ Osteomyelitis:s/p debridement, as per podiatry, all infected material taken out, pt will need 2 weeks of ABX for cellulitis, STaph aureus in tissue culture, MSSA staph, will benefit from Augmentin at discharge total 14 days. DM glucose uncontrolled, increase lantus from 25 bid, to 30 bid, continue ssi medium protocol for humalog HTN: BP stable, hold lisinopril before surgery, resume post op once bp improves , bp on the lower end still hold off on resuming lisinopril. HLD: Resume home medications DVT hep sq Diet, Carb consistent Full code. Medical - PN: Qual - VTE Deep Vein Thrombosis/Pulmonary Embolism Present on Admission: No
[2017-06-03] MEDS: INSULIN GLARGINE, HUMAN 1 UNIT/0.01 ML SQ SCH (20:24)
[2017-06-03] MEDS: QUEtiapine 100 MG TABLET PO SCH (20:25)
[2017-06-03] MEDS: SIMVASTATIN 40 MG TABLET PO SCH (20:25)
[2017-06-04] MEDS: PIPERACILLIN SODIUM/TAZOBACTAM 3.375 GM in DEXTROSE 5% IN WATER 50 ML IV SCH ×4 (00:06→17:46)
[2017-06-04] MEDS: HYDROmorphone 2 MG/ML SYRINGE IV PRN ×3 (03:59→20:47)
[2017-06-04] MEDS ORDERED: HYDROmorphone 2 MG/ML SYRINGE ONE (04:02)
[2017-06-04 05:27] LABS: Basophils # (Auto) 0 K/mcL (0.0-0.3); Basophils % (Auto) 0.5 % (0.0-2.0); Eosinophils # (Auto) 0.3 K/mcL (0.0-0.7); Eosinophils % (Auto) 3.2 % (0.0-7.0); Granulocytes % (Auto) 56.9 % (38.0-78.0); Lymphocytes # (Auto) 3.1 K/mcL (1.5-4.8); Lymphocytes % (Auto) 31.9 % (15.5-49.0); Mean Cell Volume 81.9 fL (80.0-100.0); Mean Corpuscular HGB Conc 33.3 g/dL (31.0-36.0); Mean Corpuscular Hemoglobin 27.3 pg (26.0-34.0); Monocytes # (Auto) 0.7 K/mcL (0.1-0.9); Monocytes % (Auto) 7.5 % (1.0-12.0); Platelet Count 260 K/mcL (140-440); RBC 3.84 M/mcL (4.50-5.90); Red Cell Distribution Width 13.1 % (11.5-14.5)
[2017-06-04] MEDS: 0.9 % SODIUM CHLORIDE 10 ML SYRINGE IV SCH ×3 (05:45→21:20)
[2017-06-04] MEDS: INSULIN LISPRO 1 UNIT/0.01 ML UNIT SQ SCH ×4 (09:12→21:16)
[2017-06-04] MEDS: MAGNESIUM OXIDE 400 MG TABLET PO SCH ×2 (09:13→21:17)
[2017-06-04] MEDS: CELECOXIB 200 MG CAPSULE PO SCH (09:13)
[2017-06-04] MEDS: GABAPENTIN 300 MG CAPSULE PO SCH ×3 (09:14→21:18)
[2017-06-04] MEDS: HEPARIN 5,000 UNIT/ML VIAL SQ SCH ×2 (09:14→21:16)
[2017-06-04] MEDS: DOCUSATE SODIUM 100 MG CAPSULE PO SCH ×2 (09:14→21:15)
[2017-06-04] MEDS: INSULIN GLARGINE, HUMAN 1 UNIT/0.01 ML SQ SCH ×2 (09:18→21:17)
[2017-06-04] MEDS: oxyCODONE HCL 5 MG TABLET PO PRN ×3 (10:08→19:17)
[2017-06-04] MEDS: VANCOMYCIN 1,500 MG in 0.9 % SODIUM CHLORIDE 500 ML IV SCH ×2 (10:09→20:48)
--- NOTE | 2017-06-04 16:05 | Internal Med Progress Note ---
Medical - PN: Subj Patient information: Note initiated : 06/04/17 at 4:03 pm Service Date, if different from initiated Date: [] Patient: Nicholas Teague 36 y/o M admitted on 05/31/17 for Lt Foot Swelling, Wound on Toe/Diabetic Cellulitis. Chief Complaint: [] Interval history: Mr. Teague is a 36 year old Male wit h/o DM, presents to the ER for pain in the left toe, the patient notes that the left middle toe started to get infected , an look bad approximately 1 month ago, 3 weeks ago he was advised by his physician to get admitted and have it treated, but he declined and thought it was getting better, the patients toe continue to get worse, it is more swollen , red and has pus drainage. Over the last 48 the pain has gotten worse, redness and swelling has gotten worse, as per the patient he has extracted pus. pain is throbbing, moderate to severe, worse with touch, activity better with pain meds and rest. He denies any other complaints or concerns, he has some dizziness. He denies headache, chest pain, shortness of breath, fever or chills, no rigors , no nausesa / vomiting, no urinary issues, no contipation or diarrhea. The pt was admitted to this hospital a few months ago with DM foot on the right leg, which was debrided and managed by Dr Teague, he received Ertapenum x 6 weeks then. He is supposed to get an MRI of the foot, as per ER provider at around 4. The patient is being admitted to the hospital for further management. Jun 01 patient seen examined no acute overnight issues, had fever this AM, did not allow blood cultures to be drawn patient pain well controlled Plan for OR today by Podiatry, MRI shows abscess/ Osteomyelitis. Jun 02 Patient seen, and examined, no acute overnight issues, pt has pain at the site of surgery, no other issues staph aureus on microbiology, sensitivities pending. Jun 03 Pt seen examined, sleepy on my eval wound cultures back as mssa staphy will only need oral abx, augmentin for 14 days othewise doingw ell cut back on iv pain meds and start on celecoxib and see how he does. has been seen by podiatry, will change dressing tomorrow continue iv abx x 1 more day, then plan d/c Jun 04 Patient seen examined, no acute overnight events, sleeping in the room comfortably partner too in the room sleeping, patient has no complaints plan was to do dressing change today and d/c home, but we were not able to get in touch with Dr Castaneda, who planned to see the patient. Will plan to d/c in AM after evaluation by Podiatry. Pertinent ROS: Denies headache, dizziness Denies chest pain, palpitations Denies cough or shortness of breath Denies abdominal pain, nausea or vomiting. - Constitutional Vitals: Vital Signs Temp Pulse Resp BP Pulse Ox 98.2 F 88 18 125/75 97 06/04/17 14:57 06/04/17 06:41 06/04/17 14:57 06/04/17 14:57 06/04/17 14:57 Period Temp Pulse Resp BP Sys/Santoro Pulse Ox Last 24 Hr 97.8 F-98.8 F 82-94 16-18 118-175/73-84 93-97 Intake and Output 06/04/17 06/04/17 06/04/17 05:59 13:59 21:59 Intake Total 2750 / 2750 410 / 410 850 / 850 Output Total 3975 / 3975 1650 / 1650 Balance -1225 / -1225 -1240 / -1240 850 / 850 Intake & Output: Intake & Output 06/04/17 06/04/17 06/04/17 05:59 13:59 21:59 Intake Total 2750 / 2750 410 / 410 850 / 850 Output Total 3975 / 3975 1650 / 1650 Balance -1225 / -1225 -1240 / -1240 850 / 850 Intake: IV 50 / 50 50 / 50 50 / 50 Zosyn 3.375 gm In Dextrose 5% 50 / 50 50 / 50 50 / 50 in Water 50 ml @ 100 mls/hr IV Q6H [facility] Rx#:[id number] Oral 2700 / 2700 360 / 360 800 / 800 Output: Void Amount 3975 / 3975 1650 / 1650 Other: Meal Breakfast Percent of Meal Consumed 100% Feeding Ability Independent Exam: Constitutional; Afebrile, cooperative, alert, not in distress. Eyes- No icterus, , No periorbital swelling Ears- Ext ear normal, hearing normal to conversation. Neck- Midline trachea, supple Respiratory system: Air Entry equal on both sides, No crackles or wheezing, no rhonchi. CVS- Rate rhythm regular, S1,S2 heard, no gallop, no rub. 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 Medical - PN: Obj Da - Labs CBC & Chem 7: 06/04/17 04:34 06/03/17 05:05 Labs: Abnormal Lab Results 06/04/17 06/03/17 06/03/17 04:34 05:05 05:05 WBC RBC 3.84 L 3.46 L Hgb 10.5 L 9.4 L Hct 31.4 L 28.5 L Gran % Lymph % (Auto) Gran # [place] # (Auto) Glucose 257 H Albumin 2.9 L Albumin/Globulin Ratio 0.9 L Triglycerides 173 H 06/02/17 06/02/17 04:55 04:55 WBC 13.6 H RBC 3.84 L Hgb 10.5 L Hct 31.4 L Gran % 78.9 H Lymph % (Auto) 11.7 L Gran # 10.7 H [place] # (Auto) 1.2 H Glucose 258 H Albumin Albumin/Globulin Ratio 0.9 L Triglycerides Meds: Medications Acetaminophen (Tylenol) 650 mg PO Q6HP PRN PRN Reason: PAIN/FEVER > 101 Last Admin: 06/01/17 05:24 Dose: 650 mg Celecoxib (Celebrex) 200 mg PO DAILY [facility] Last Admin: 06/04/17 09:13 Dose: 200 mg Dextrose (Dextrose 50%) 0 ml IV UD PRN PRN Reason: Hypoglycemia Diagnostic Test (Pha) (Accu-Chek) 1 each FS ACHS [facility] Last Admin: 06/04/17 12:09 Dose: 1 each Docusate Sodium (Colace) 100 mg PO BID [facility] Last Admin: 06/04/17 09:14 Dose: 100 mg Gabapentin (Neurontin) 300 mg PO TID [facility] Last Admin: 06/04/17 15:05 Dose: 300 mg Glucose (Insta-Glucose) 15 gm PO PRN PRN PRN Reason: Hypoglycemia Heparin Sodium (Porcine) (Heparin) 5,000 unit SQ Q12 [facility] Last Admin: 06/04/17 09:14 Dose: 5,000 unit Hydromorphone HCl (Dilaudid) 0.5 mg IV Q4HP PRN PRN Reason: PAIN LEVEL > 6 Last Admin: 06/04/17 09:14 Dose: 0.5 mg Piperacillin Sod/Tazobactam (Sod 3.375 gm/ Dextrose) 50 mls @ 100 mls/hr IV Q6H [facility] Last Infusion: 06/04/17 14:00 Dose: Infused Vancomycin HCl 1,500 mg/ (Sodium Chloride) 500 mls @ 333.3 mls/hr IV Q12H [facility] Last Admin: 06/04/17 10:09 Dose: 333.3 mls/hr Insulin Glargine (Lantus) 30 unit SQ BID [facility] Last Admin: 06/04/17 09:18 Dose: 30 unit Insulin Human Lispro (Humalog) 0 unit SQ ACHS [facility] PRN Reason: Protocol Last Admin: 06/04/17 11:45 Dose: 1 unit Magnesium Hydroxide (Milk Of Magnesia) 30 ml PO DAILYP PRN PRN Reason: Constipation Magnesium Oxide (Magnesium Oxide) 400 mg PO BID [facility] Last Admin: 06/04/17 09:13 Dose: 400 mg Naloxone HCl (Narcan) 0.1 mg IV Q2MIN PRN PRN Reason: Opiate Reversal Ondansetron HCl (Zofran) 4 mg IV Q6HP PRN PRN Reason: Nausea And Vomiting Oxycodone HCl (Roxicodone) 5 mg PO Q4HP PRN PRN Reason: PAIN LEVEL 3-6 Last Admin: 06/04/17 15:04 Dose: 5 mg Quetiapine Fumarate (Seroquel) 600 mg PO [facility] Last Admin: 06/03/17 20:25 Dose: 600 mg Senna (Senokot) 2 tab PO HS PRN PRN Reason: Constipation Last Admin: 06/01/17 21:38 Dose: 2 tab Simvastatin (Zocor) 40 mg PO [facility] Last Admin: 06/03/17 20:25 Dose: 40 mg Sodium Chloride (Saline Flush) 10 ml IV Q8 [facility] Last Admin: 06/04/17 15:06 Dose: 10 ml Vancomycin HCl (Vancomycin Per Pharmacy) 1 order IV [facility] Medical - PN: A/P - Time Spent With Patient Total time spent is greater than 50% in coordination of care (as documented) at patient's floor/unit and/or counseling patient: - Narrative A/P Narrative: A/P Diabetic Cellulitis/ Osteomyelitis:s/p debridement, as per podiatry, all infected material taken out, pt will need 2 weeks of ABX for cellulitis, STaph aureus in tissue culture, MSSA staph, will benefit from Augmentin at discharge total 14 days. DM glucose on lantus 30 bid, glucose control better today, continue ssi medium protocol for humalog HTN: BP stable, hold lisinopril before surgery, resume post op once bp improves , bp better, resume lisinopril. HLD: Resumed home medications DVT hep sq Diet, Carb consistent Full code. Medical - PN: Qual - VTE Deep Vein Thrombosis/Pulmonary Embolism Present on Admission: No
[2017-06-04] MEDS ORDERED: LISINOPRIL 20 MG TABLET PO SCH (21:00)
[2017-06-04] MEDS: QUEtiapine 100 MG TABLET PO SCH (21:18)
[2017-06-04] MEDS: SIMVASTATIN 40 MG TABLET PO SCH (21:19)
[2017-06-05] MEDS: PIPERACILLIN SODIUM/TAZOBACTAM 3.375 GM in DEXTROSE 5% IN WATER 50 ML IV SCH ×2 (00:04→05:51)
[2017-06-05] MEDS: ACETAMINOPHEN 325 MG TABLET PO PRN ×2 (00:04→04:12)
[2017-06-05] MEDS: oxyCODONE HCL 5 MG TABLET PO PRN ×3 (00:09→11:16)
[2017-06-05] MEDS: 0.9 % SODIUM CHLORIDE 10 ML SYRINGE IV SCH (05:54)
[2017-06-05] MEDS: CELECOXIB 200 MG CAPSULE PO SCH (09:03)
[2017-06-05] MEDS: MAGNESIUM OXIDE 400 MG TABLET PO SCH (09:03)
[2017-06-05] MEDS: INSULIN GLARGINE, HUMAN 1 UNIT/0.01 ML SQ SCH (09:03)
[2017-06-05] MEDS: INSULIN LISPRO 1 UNIT/0.01 ML UNIT SQ SCH (09:03)
[2017-06-05] MEDS: DOCUSATE SODIUM 100 MG CAPSULE PO SCH (09:04)
[2017-06-05] MEDS: GABAPENTIN 300 MG CAPSULE PO SCH (09:04)
[2017-06-05] MEDS: HEPARIN 5,000 UNIT/ML VIAL SQ SCH (09:07)
--- NOTE | 2017-06-05 09:20 | Discharge Summary ---
Medical - DS: Prov Patient information: Note initiated : 06/05/17 at 9:17 am Service Date, if different from initiated Date: [] Patient: Nicholas Teague 36 y/o M admitted on 05/31/17 for Lt Foot Swelling, Wound on Toe/Diabetic Cellulitis. Chief Complaint: [] Date of admission: 05/31/17 17:34 Discharge date: 06/05/17 Primary care physician: Car Rosado Admitting clinician: Makenzie Parikh Consults: 05/31/17 15:24 Consult to Physician [CONS] Stat Comment: Consulting Provider: Makenzie Parikh Reason For Exam: Physician to Consult 05/31/17 17:39 Consult to Physician [CONS] Stat Comment: osteomyelitis Consulting Provider: HoGuanaco Reason For Exam: Physician to Consult Discharging clinician: Makenzie Parikh Medical - DS: Meds - Discharge Medications Prescriptions: Amoxicillin/Potassium Clav [Augmentin] 875 mg PO Q12H #24 tab Celecoxib [Celebrex] 200 mg PO DAILY #30 cap Active and Home Medications: Home Medications lisinopril 20 mg tablet 40 mg PO HS #60 tab 11/24/16 [Rx Confirmed 05/31/17 Last Taken 05/29/17] simvastatin 40 mg tablet 40 mg PO HS #90 tab 01/23/17 [Rx Confirmed 05/31/17 Last Taken 05/29/17 1900] QUEtiapine FUMARATE [Seroquel] 600 mg PO HS 02/06/17 [History Confirmed Last Taken 05/30/17 19:00] Insulin Glargine,Hum.rec.anlog [Tootie Lang] 34 unit SUB-Q QAM 02/12/17 [ History Confirmed 05/31/17 Last Taken 05/30/17 19:00] Accu-Chek 1 each FS ACHS strip 02/13/17 [Rx Confirmed 05/31/17 Last Taken Unknown] Multivit,Ther Iron,Ca,FA & Min [Multivitamin W/Minerals] 1 tab PO DAILY tab [Rx Confirmed 05/31/17 Last Taken Unknown] gabapentin 300 mg capsule 300 mg PO TID #90 cap 03/21/17 [Rx Confirmed 05/31/17 Last Taken 05/30/17 19:00] hydrocodone 10 mg-acetaminophen 325 mg tablet 1 tab PO .TID-QID #120 tab [Rx Confirmed 05/31/17 Last Taken 05/30/17 19:00] Medical - DS: Hosp Hospital course: Mr. Teague is a 36 year old Male wit h/o DM, presented to the ER for pain in the left toe, the patient notes that the left middle toe started to get infected , an look bad approximately 1 month ago, 3 weeks ago he was advised by his physician to get admitted and have it treated, but he declined and thought it was getting better, the patients toe continue to get worse, it is more swollen , red and has pus drainage. Over the last 48 the pain has gotten worse, redness and swelling has gotten worse, as per the patient he has extracted pus. pain is throbbing, moderate to severe, worse with touch, activity better with pain meds and rest. He denies any other complaints or concerns, he has some dizziness. The patient is being admitted to the hospital for further management. MRI of the foot showed osteomyelitis of the 2nd toe, with abscess. Osteomyelitis/ Abscess : Patient was seen by Dr Teague, who evaluated the patient, and operated on patient, removed all infected bone. The patient had some surrounding cellulitis on presentation. His microbiology was positive for MSSA. The patient will be treated with augmentin x 12 more days. The patient has post op pain, he is already on narcotics by his PCP, I will add celecoxib for a short duration to help manage his pain. Throughout the hospital stay, even though the patient did mention pain in complaints, he was always seen sleeping very comfortably, without any signs of distress. DM: patient had elevated glucose during hospital stay, which I hope will improve as the infecting improves. HE will resume his home dose of insulin and follow up with PCP for further management. No changes made to his home med list except use of celecoxib for short duration and antibiotics for 12 days. Discharge diagnosis: osteomyelitis, cellulitis. - Time Spent with Patient Total time spent providing and/or coordinating discharge services: Greater than 30 minutes Medical - DS: Exam - Constitutional Vitals: Vital Signs Temp Pulse Resp BP BP Pulse Ox 06/05/17 06:29 97.5 F 16 105/72 96 06/05/17 04:15 98.1 F 99 H 18 117/79 95 06/05/17 00:11 97.6 F 105 H 18 125/71 95 06/04/17 20:00 98.2 F 82 18 173/94 98 06/04/17 14:57 98.2 F 18 125/75 97 06/04/17 11:32 98.8 F 16 118/74 95 Intake and Output 06/04/17 06/05/17 06/05/17 21:59 05:59 13:59 Intake Total 900 / 900 2850 / 2850 Output Total 650 / 650 2450 / 2450 650 / 650 Balance 250 / 250 400 / 400 -650 / -650 Intake: IV 100 / 100 50 / 50 Zosyn 3.375 gm In Dextrose 5% 100 / 100 50 / 50 in Water 50 ml @ 100 mls/hr IV Q6H RAYNA Rx#:[id number] Oral 800 / 800 2800 / 2800 Output: Void Amount 650 / 650 2450 / 2450 650 / 650 Other: # Bowel Movements 1 Weight 221 lb Additional comments: Constitutional; Afebrile, cooperative, alert, not in distress. Eyes- No icterus, , No periorbital swelling Ears- Ext ear normal, hearing normal to conversation. Neck- Midline trachea, supple Respiratory system: Air Entry equal on both sides, No crackles or wheezing, no rhonchi. CVS- Rate rhythm regular, S1,S2 heard, no gallop, no rub. Abdomen- Soft nontender abdomen, no organomegaly, no tenderness, no guarding or rigidity, AUTO TESTER- AOOx3, moving all extremities, no gross focal deficit noted. Medical - DS: Data Labs on day of discharge: Preliminary micro results at discharge 06/01/17 12:49 Anaerobic Culture - Preliminary Toe - Second Medical - DS: A/P - Patient/Caregiver Discharge Instructions Activity: increase activity as tolerated Diet: Consistent Carbohydrate Additional Instructions: Please follow up with your PCP as scheduled Follow up with Dr Teague today in his clinic. Take antibiotics amoxicillin clavulanate for 12 more days. Take celecoxib 200mg once daily for pain management, do not take more than 1 month. Go to the ER if worsening symptoms or any other acute concerns. - Follow up Plan Follow up with: Car Rosado PA-C [Primary Care Provider] - 06/05/17 1:00 pm (Please attend your follow up today @ 1pm with Guanaco Vera DPM [Physician] - Disposition: Home, Self-Care Prognosis: Fair Rehab Potential: Fair I certify that the patient requires SNF services: No Overall status at discharge: patient is progressing back to baseline Medical - DS: Qual - VTE Deep Vein Thrombosis/Pulmonary Embolism Present on Admission: No
[2017-06-05] MEDS: VANCOMYCIN 1,500 MG in 0.9 % SODIUM CHLORIDE 500 ML IV SCH (09:32)
--- NOTE | 2017-06-05 12:23 | Surgical Pathology Report ---
HISTOLOGY SPECIMEN MICROSCOPIC DIAGNOSIS LOWER EXTREMITY DIGIT, LEFT SECOND TOE, AMPUTATION: -- ULCERATION OF SKIN AND SOFT TISSUE WITH UNDERLYING ACUTE OSTEOMYELITIS. ([facility]:djf) CLINICAL HISTORY Left second toe swelling; erythema; diabetic wound on toe. GROSS DESCRIPTION The specimen is received in formalin as left second toe and consists of an amputated toe that measures 5 cm in maximum length by 2.5 x 2.5 cm. Also present in the container are two additional portions of bone with cartilage and attached soft tissue that measure 2 x 1.5 x 1.8 cm and 1.5 x 0.9 x 0.8 cm. The toe has a region of ulceration on the superior surface that measures 1.2 x 1 cm. The nail plate is present and measures 1.3 x 0.8 cm. A thickened area of possible callous is noted along the medial aspect of the toe that measures 1.5 x 1.2 cm. The specimen is decalcified prior to sectioning. Sections of the ulcer with underlying tissue and separately received portions of bone submitted in A1; complete cross section of toe including area of possible callous submitted in A2; inked cutaneous and soft tissue margins submitted in A3. (ACP:adj) Electronically Signed by: Nisha Day D.O.
== END 2017-06-05 11:32 | disposition home or self-care (01) | DRG 617 ==
LOC: MEDSUR 13:44 → ED 13:44 → OBSVTOIN 17:34 → MEDSUR 17:44
PROVIDERS: ADMIT Internal Medicine; ATTEND Internal Medicine

== ENCOUNTER 2017-10-11 15:45 | Inpatient (IN) ==
--- NOTE | 2017-10-11 16:34 | Emergency Department Note ---
Skin/Abscess/FB HPI - General Chief complaint: Skin/Abscess/Foreign Body Stated complaint: diabetic ulcer, rash Time Seen by Provider: 10/11/17 16:02 Source: patient Mode of arrival: wheelchair Limitations: no limitations - History of Present Illness HPI Narrative: 37-year-old male presents with wound to the right second toe. He was seen here a week ago for the same. States it is worse. Has chills and nausea. No vomiting or diarrhea. Unknown fever. The chills and nausea just started in the last 48 hours. States he already had to have the left second toe amputated a couple months ago and the right one looks much worse now than that one did previously. He was originally supposed to take his oral Septra and follow-up with wound care. He has been taking the Septra without improvement and he never did follow-up with wound care and states it is because they never answer their phone for the last week. No other rashes or lesions. The pain is starting to radiate from his toe up into his foot. - Related Data Home Medications Medication Instructions Recorded Confirmed Simvastatin [Zocor] 0 mg PO HS 10/11/17 10/11/17 Previous Rx's Medication Instructions Recorded Accu-Chek 1 each FS ACHS strip 02/13/17 blood sugar diagnostic strips See Dose Instructions .ROUTE 10/02/17 .MEDSUPPLY #100 each gabapentin 300 mg capsule 300 mg PO TID #90 cap 10/02/17 hydrocodone 10 mg-acetaminophen 1 tab PO QID #120 tab 10/02/17 325 mg tablet insulin glargine (U-300) 300 45 unit SUB-Q QAM #4.5 ml 10/02/17 unit/mL (1.5 mL) subcutaneous pen lancets 30 gauge See Dose Instructions .ROUTE 10/02/17 .MEDSUPPLY #100 each lisinopril 20 mg tablet 40 mg PO HS #60 tab 10/02/17 quetiapine 300 mg tablet 600 mg PO HS 90 Days #180 tab 10/02/17 simvastatin 40 mg tablet 40 mg PO HS #90 tab 10/02/17 Sulfamethoxazole/Trimethoprim 1 tab PO BID #20 tab 10/05/17 [Bactrim Ds] Allergies Allergy/AdvReac Type Severity Reaction Status Date / Time No Known Drug Allergies Allergy Verified 10/11/17 15:50 Review of Systems All systems ED: reviewed and negative except as stated. Past Medical History - Past Medical History [facility] Narrative: Medical History (Last Reviewed 11/24/16 @ 10:49 by Car Rosado PA-C) Diabetes (Chronic) Type 2 diabetes mellitus (Chronic) Medical history: Reports: DM, hyperlipidemia, hypertension, other Psychiatric history: Reports: PTSD, schizophrenia Surgical history ED: Reports: other (amputation toe left) - Social History smoking status: Never smoker Alcohol use: Reports: Unknown Drug use: Reports: marijuana (occasionally) Physical Exam Limitations: no limitations General appearance: alert, in no apparent distress Head: atraumatic, normocephalic, normal inspection Eye: Present: normal appearance. Absent: conjunctival injection ENT: mucous membranes moist Chest: Present: normal inspection, symmetric chest wall rise Respiratory: Present: normal lung sounds bilaterally. Absent: respiratory distress, wheezes, accessory muscle use Cardiovascular: Present: regular rate, normal heart sounds Extremities: Absent: normal inspection (Right second toe with diffuse edema, it is dark in color with poor cap refill. Tender. Purulent drainage.), full ROM ( Decreased active range of motion to the right second toe related to pain and swelling.) Neurological: Present: alert, oriented X3. Absent: motor sensory deficit Psychiatric: Present: normal affect, normal mood Skin: Present: warm, dry, normal color. Absent: intact (Please see extremity assessment) Course Course Narrative: At [address] Teague regarding the osteomyelitis and elevated white blood cell count. He would like to put him in the hospital and see if the hospitalist will admit him and he will consult and see him first thing in the morning. Patient be kept n.p.o. after midnight for surgery and amputation of the right second toe tomorrow. Patient is agreeable to admit. Patient has been agitated at times. The CMP had to be redrawn and right now he is not letting them redraw however the nurses are and work with him and see if they can get him to be more cooperative. He is extremely anxious and agitated. Vital Signs Temperature 98.1 F 10/11/17 15:46 Pulse Rate 94 H 10/11/17 15:46 Respiratory Rate 18 10/11/17 15:46 Blood Pressure 114/76 10/11/17 15:46 Pulse Oximetry (%) 100 10/11/17 15:46 Temperature 98.1 F 10/11/17 15:46 Pulse Rate 87 10/11/17 17:02 Respiratory Rate 18 10/11/17 15:46 Blood Pressure 110/56 10/11/17 17:02 Pulse Oximetry (%) 96 10/11/17 17:02 Skin/Abscess/Foreign Body - Lab Data Lab results reviewed: Yes I reviewed the patient's lab results. Result diagrams: 10/11/17 16:10 10/11/17 16:10 Lab Results 10/11/17 10/11/17 Range/Units 16:10 16:10 WBC 14.3 H (4.5-11.0) K/mcL RBC 4.03 L (4.50-5.90) M/mcL Hgb 11.0 L (13.5-16.5) g/dL Hct 33.4 L (41.0-55.0) % MCV 82.8 (80.0-100.0) fL MCH 27.4 (26.0-34.0) pg MCHC 33.1 (31.0-36.0) g/dL RDW 12.9 (11.5-14.5) % Plt Count 348 (140-440) K/mcL MPV 9.7 (7.4-10.4) fL Gran % 72.1 (38.0-78.0) % Lymph % (Auto) 20.3 (15.5-49.0) % Frederick % (Auto) 5.8 (1.0-12.0) % Eos % (Auto) 1.4 (0.0-7.0) % Baso % (Auto) 0.4 (0.0-2.0) % Gran # 10.3 H (1.8-8.0) K/mcL Lymph # (Auto) 2.9 (1.5-4.8) K/mcL Frederick # (Auto) 0.8 (0.1-0.9) K/mcL Eos # (Auto) 0.2 (0.0-0.7) K/mcL Baso # (Auto) 0.1 (0.0-0.3) K/mcL VBG Lactic Acid 1.0 (0.5-2.2) mmol/L - Radiology Data Radiology results reviewed: Yes I reviewed the patient's radiology results. Disposition Pt seen by HIDE BUFFER/PA only: Yes Clinical Impression: Osteomyelitis of toe, Diabetes Disposition: Home, Self-Care Condition: Good Referrals: Car Rosado PA-C [Primary Care Provider] - Guanaco Teague DPM [Physician] - Time of Disposition: 17:17
[2017-10-11 16:48] LABS: Basophils # (Auto) 0.1 K/mcL (0.0-0.3); Basophils % (Auto) 0.4 % (0.0-2.0); Eosinophils # (Auto) 0.2 K/mcL (0.0-0.7); Eosinophils % (Auto) 1.4 % (0.0-7.0); Granulocytes % (Auto) 72.1 % (38.0-78.0); Lymphocytes # (Auto) 2.9 K/mcL (1.5-4.8); Lymphocytes % (Auto) 20.3 % (15.5-49.0); Mean Cell Volume 82.8 fL (80.0-100.0); Mean Corpuscular HGB Conc 33.1 g/dL (31.0-36.0); Mean Corpuscular Hemoglobin 27.4 pg (26.0-34.0); Monocytes # (Auto) 0.8 K/mcL (0.1-0.9); Monocytes % (Auto) 5.8 % (1.0-12.0); Platelet Count 348 K/mcL (140-440); RBC 4.03 M/mcL (4.50-5.90); Red Cell Distribution Width 12.9 % (11.5-14.5)
--- NOTE | 2017-10-11 16:57 | XRay Report ---
CLINICAL INFORMATION: Necrotic right second toe TECHNIQUE: AP, oblique, lateral right foot COMPARISON: Previous examination dated 01/30/2017 FINDINGS: Vascular calcifications consistent with diabetes. Partially destroyed right second middle phalanx. Appearance is consistent with osteomyelitis. Distal phalanx is not identified and may be destroyed. There is subtle probable cortical destruction involving the distal and lateral aspects of the right second proximal phalanx. There are small gas bubbles within the soft tissues consistent with gangrene. No radiopaque foreign body. There are subluxations at the right third through fifth metatarsal phalangeal joints. No cortical destruction. No other foci of osteomyelitis. IMPRESSION: 1. Findings consistent with osteomyelitis in the right second digit as above. 2. Soft tissue gas bubbles consistent with gangrene 3. Vascular calcifications consistent with diabetes. Interpreted and Authenticated by: Ariel Brady 10/11/17
[2017-10-11] MEDS ORDERED: PIPERACILLIN SODIUM/TAZOBACTAM 3.375 GM in DEXTROSE 5% IN WATER 50 ML IV ONE (17:13)
[2017-10-11] MEDS ORDERED: HYDROmorphone 2 MG/ML VIAL IV SCH (17:15)
[2017-10-11] MEDS ORDERED: ONDANSETRON 4 MG/2 ML VIAL IV ONE (17:15)
[2017-10-11 18:14] LABS: ALT/SGPT 21 U/l (0-40); Albumin 3.5 gm/dL (3.2-5.2); Albumin/Globulin Ratio 0.9 (1.0-2.3); Alkaline Phosphatase 92 U/L (39-117); Blood Urea Nitrogen 19 mg/dl (6-20)
--- NOTE | 2017-10-11 18:37 | Internal Med History&Physical ---
Medical - H&P: HPI Patient information: Note initiated : 10/11/17 at 6:34 pm Service Date, if different from initiated Date: [] Patient: Nicholas Teague 37 y/o M admitted on for diabetic ulcer, rash. Chief Complaint: [] History of present illness: Mr. Teague is a 37 year old Male with h/o dm, recent left 2nd toe amputation, presents to the with pain and redness in the right second toel Patient notes that the right second toe has been chronically rubbing on the right first toe, he noted that the tip of the nail started to fall off approximately 2 weeks ago, that was associated swelling and redness. He was seen for that reason in the emergency room last , he was started on oral Bactrim and advised to follow-up with wound care clinic. The patient notes that his condition worsened since then and he will came back again. He notes that there is increased redness and warmth in the right foot. In the emergency room patient's vital signs are stable's, labs showed leukocytosis, x-ray of the foot shows osteomyelitis of the second toe as well as gangrene in the second toe. Dr. Teague the computational linguist for the patient wants patient to be admitted to the hospital for further management, plan for amputation of the toe tomorrow. The patient notes that after he left the emergency room, he developed a rash on his skin involving his lower extremities back in the upper extremity it was itching and initially felt like urticaria. This rash has now slowly been improving. He is not sure if he received any IV medications, on reviewing his chart it seems he did not get any IV medications. He was discharged on Bactrim. He is still taking the Bactrim and despite taking this medication the rash seems to be improving. All systems: reviewed and no additional remarkable complaints except as stated ( Point review of systems done all negative except as per HPI) Medical - H&P: PMH Medical history: Medical History (Last Reviewed 11/24/16 @ 10:49 by Car Rosado PA-C) Diabetes (Chronic) Type 2 diabetes mellitus (Chronic) Surgical history: Left second toe amputation Family history: reviewed and not pertinent Medical - H&P: Meds Home Medications Medication Instructions Recorded Confirmed Type Accu-Chek 1 each FS ACHS strip 02/13/17 10/11/17 Rx blood sugar diagnostic strips See Dose Instructions .ROUTE 10/02/17 10/02/17 Rx .MEDSUPPLY #100 each gabapentin 300 mg capsule 300 mg PO TID #90 cap 10/02/17 10/11/17 Rx hydrocodone 10 mg-acetaminophen 1 tab PO QID #120 tab 10/02/17 10/11/17 Rx 325 mg tablet insulin glargine (U-300) 300 45 unit SUB-Q QAM #4.5 ml 10/02/17 10/11/17 Rx unit/mL (1.5 mL) subcutaneous pen lancets 30 gauge See Dose Instructions .ROUTE 10/02/17 10/02/17 Rx .MEDSUPPLY #100 each lisinopril 20 mg tablet 40 mg PO HS #60 tab 10/02/17 10/11/17 Rx quetiapine 300 mg tablet 600 mg PO HS 90 Days #180 tab 10/02/17 10/11/17 Rx simvastatin 40 mg tablet 40 mg PO HS #90 tab 10/02/17 10/02/17 Rx Sulfamethoxazole/Trimethoprim 1 tab PO BID #20 tab 10/05/17 Rx [Bactrim Ds] Simvastatin [Zocor] 0 mg PO HS 10/11/17 10/11/17 History Allergies Allergy/AdvReac Type Severity Reaction Status Date / Time No Known Drug Allergies Allergy Verified 10/11/17 15:50 Medical - H&P: Exam - Constitutional Vitals: Temp Pulse Resp BP Pulse Ox 98.1 F 93 H 18 103/65 100 10/11/17 15:46 10/11/17 18:02 10/11/17 15:46 10/11/17 18:02 10/11/17 18:02 Exam: GENERAL: The patient is a well-developed, well-nourished in no apparent distress. Is alert and oriented x3. VITAL SIGNS: Reviewed and as noted elsewhere. HEENT: Head is normocephalic and atraumatic. Extraocular muscles are intact. Pupils are equal, round, and reactive to light. Nares appeared normal. Mouth appears any without lesions. Mucous membranes are moist. NECK: Normal to inspection, Supple, No lymphadenopathy or thyromegaly. LUNGS: Air entry equal on both sides, no wheezing, crackles or rhonchi noted. No accessory muscles of respiration HEART: Regular rate and rhythm normal, S1 and S2 heard, no Gallop, S3 or Rub Noted, No Gross murmur heard. ABDOMEN: Soft, nontender, and nondistended. Positive bowel sounds. No hepatosplenomegaly was noted. EXTREMITIES: No cyanosis, clubbing, rash, lesions or edema. Right foot-second toe is dark in color, swollen, the right foot is warm to touch and mildly erythematous. dp pulses present NEUROLOGIC: Cranial nerves II through XII are grossly intact. Motor and Sensory System Grossly Intact PSYCHIATRIC: Normal affect, Normal Mood. Appropriate Behavior. SKIN: No ulceration or wounds noted, No jaundice, macular papular purpuratic rash predominantly involving the lower one thirds of the legs noted, patient noticed slightly tender to touch. This rash also is present on the back as well as shoulders but seems to be fading away. Medical - H&P: Reslt - Labs CBC & Chem 7: 10/11/17 16:10 10/11/17 17:18 Labs: Short CBC 10/11/17 Range/Units 16:10 WBC 14.3 H (4.5-11.0) K/mcL Hgb 11.0 L (13.5-16.5) g/dL Hct 33.4 L (41.0-55.0) % Plt Count 348 (140-440) K/mcL BMP 10/11/17 10/11/17 16:10 17:18 Sodium TNP 136 Potassium TNP 4.9 Chloride TNP 98 Carbon Dioxide TNP 26 BUN TNP 19 Creatinine TNP 1.3 H Glucose TNP 221 H Calcium TNP 9.5 Liver Function 10/11/17 10/11/17 Range/Units 16:10 17:18 Total Bilirubin TNP < 0.2 AST TNP 15 ALT TNP 21 Alkaline Phosphatase TNP 92 Albumin TNP 3.5 Medical - H&P: A/P - Narrative A/P Narrative: A/P Osteomyelitis Gangrene Cellulititis/ sepsis syndrome Diabetes Drug reaction/ vs skin rash Plan admit to med sug IV vanco, zosyn and clindamycin, Podiatry to plan for amputation in AM ssi for insulin coverage monitor skin rash is improving, given close association with bactrim, likely drug eruption, however the pt has been taking this med and still the rash is improving makes me wonder if alternative etiology is at play, none the less if rash worsens will need a skin biopsy and will send auto immune workup DVT hep sq Diet diabetic, NPO MN Full code. Social History - Tobacco smoking status: Never smoker
[2017-10-11] MEDS ORDERED: ACETAMINOPHEN 325 MG TABLET PO PRN (19:05)
[2017-10-11] MEDS ORDERED: VANCOMYCIN PER PHARMACY IV ONE (19:05)
[2017-10-11] MEDS ORDERED: NALOXONE HCL 0.4 MG/ML VIAL IV PRN (19:05)
[2017-10-11] MEDS ORDERED: ONDANSETRON 4 MG/2 ML VIAL IV PRN (19:05)
[2017-10-11] MEDS ORDERED: DEXTROSE 31 GM ORAL.SUSP PO PRN (19:05)
[2017-10-11] MEDS ORDERED: oxyCODONE/APAP 5/325MG TABLET PO PRN (19:05)
[2017-10-11] MEDS ORDERED: DEXTROSE 50% 50 ML VIAL IV PRN (19:05)
[2017-10-11] MEDS ORDERED: HYDROmorphone 2 MG/ML VIAL IV PRN (19:05)
[2017-10-11] MEDS: 0.9 % SODIUM CHLORIDE 1,000 ML IV SCH (19:18)
[2017-10-11] MEDS: PIPERACILLIN SODIUM/TAZOBACTAM 3.375 GM in DEXTROSE 5% IN WATER 50 ML IV SCH ×2 (19:33→23:50)
[2017-10-11] MEDS ORDERED: VANCOMYCIN PER PHARMACY IV SCH (19:45)
[2017-10-11] MEDS ORDERED: VANCOMYCIN 1,500 MG in 0.9 % SODIUM CHLORIDE 500 ML IV ONE (20:00)
[2017-10-11] MEDS: CLINDAMYCIN 900 MG in DEXTROSE 5% IN WATER 50 ML IV SCH (20:17)
[2017-10-11] MEDS: 0.9 % SODIUM CHLORIDE 10 ML SYRINGE IV SCH (20:26)
[2017-10-11] MEDS: HEPARIN 5,000 UNIT/ML VIAL SQ SCH (21:24)
[2017-10-11] MEDS: INSULIN LISPRO 1 UNIT/0.01 ML UNIT SQ SCH (21:24)
[2017-10-12] MEDS: PIPERACILLIN SODIUM/TAZOBACTAM 3.375 GM in DEXTROSE 5% IN WATER 50 ML IV SCH ×3 (06:08→21:57)
[2017-10-12] MEDS: 0.9 % SODIUM CHLORIDE 10 ML SYRINGE IV SCH ×4 (06:08→22:00)
--- NOTE | 2017-10-12 07:37 | Emergency Department Note ---
ED Note Addendum Note Addendum: I saw this patient with Adilia ROJAS on 10/11/2017. I also discussed the case with Dr. Parikh the hospitalist who admitted the patient. We are concerned about the rash on his lower legs being vasculitis versus a drug eruption in addition to the gangrenous toe. I agree with Adilia's evaluation management documentation and disposition. Patient will be admitted and prepped for a amputation on 10/12
[2017-10-12] MEDS: CLINDAMYCIN 900 MG in DEXTROSE 5% IN WATER 50 ML IV SCH ×2 (07:42→15:36)
[2017-10-12] MEDS: INSULIN LISPRO 1 UNIT/0.01 ML UNIT SQ SCH ×4 (07:45→20:40)
[2017-10-12 07:56] LABS: Basophils # (Auto) 0.1 K/mcL (0.0-0.3); Basophils % (Auto) 0.4 % (0.0-2.0); Eosinophils # (Auto) 0.3 K/mcL (0.0-0.7); Eosinophils % (Auto) 2.5 % (0.0-7.0); Granulocytes % (Auto) 63.6 % (38.0-78.0); Lymphocytes # (Auto) 3.7 K/mcL (1.5-4.8); Lymphocytes % (Auto) 27.4 % (15.5-49.0); Mean Cell Volume 83.1 fL (80.0-100.0); Mean Corpuscular HGB Conc 32.7 g/dL (31.0-36.0); Mean Corpuscular Hemoglobin 27.2 pg (26.0-34.0); Monocytes # (Auto) 0.8 K/mcL (0.1-0.9); Monocytes % (Auto) 6.1 % (1.0-12.0); Platelet Count 289 K/mcL (140-440); RBC 3.55 M/mcL (4.50-5.90); Red Cell Distribution Width 12.6 % (11.5-14.5)
[2017-10-12 08:14] LABS: ALT/SGPT 22 U/l (0-40); Albumin 3.2 gm/dL (3.2-5.2); Albumin/Globulin Ratio 0.9 (1.0-2.3); Alkaline Phosphatase 99 U/L (39-117); Bilirubin,Direct < 0.2 mg/dL (0.0-0.3); Blood Urea Nitrogen 16 mg/dl (6-20); Gamma Glutamyl Transpeptidase 38 U/L (8-61); Uric Acid 5.7 mg/dL (2.5-8.0)
[2017-10-12] MEDS ORDERED: VANCOMYCIN 1,500 MG in 0.9 % SODIUM CHLORIDE 500 ML IV SCH (09:00)
--- NOTE | 2017-10-12 09:15 | Orthopedic Consult Note ---
History of Present Illness - [facility] Patient information: Note initiated : 10/12/17 at 9:10 am Service Date, if different from initiated Date: [] Patient: Nicholas Teague 37 y/o M admitted on 10/11/17 for diabetic ulcer, rash. Chief Complaint: [my right second toe is infected] Consult date: 10/12/17 Requesting physician: Makenzie Parikh Consult reason: other (infection of right second toe) History of present illness: Mister Nicholas Teague has an extensive history of uncontrolled diabetes. He decided to come to the hospital once he was pulling bone chunks out of the toe. Review of Systems Constitutional: as per [facility] Past History Past medical history: Diabetes mellitus Medications and Allergies Home Medications Medication Instructions Recorded Confirmed Type Accu-Chek 1 each FS ACHS strip 02/13/17 10/11/17 Rx blood sugar diagnostic strips See Dose Instructions .ROUTE 10/02/17 10/02/17 Rx .MEDSUPPLY #100 each gabapentin 300 mg capsule 300 mg PO TID #90 cap 10/02/17 10/11/17 Rx hydrocodone 10 mg-acetaminophen 1 tab PO QID #120 tab 10/02/17 10/11/17 Rx 325 mg tablet insulin glargine (U-300) 300 45 unit SUB-Q QAM #4.5 ml 10/02/17 10/11/17 Rx unit/mL (1.5 mL) subcutaneous pen lancets 30 gauge See Dose Instructions .ROUTE 10/02/17 10/02/17 Rx .MEDSUPPLY #100 each lisinopril 20 mg tablet 40 mg PO HS #60 tab 10/02/17 10/11/17 Rx quetiapine 300 mg tablet 600 mg PO HS 90 Days #180 tab 10/02/17 10/11/17 Rx simvastatin 40 mg tablet 40 mg PO HS #90 tab 10/02/17 10/11/17 Rx Sulfamethoxazole/Trimethoprim 1 tab PO BID #20 tab 10/05/17 10/11/17 Rx [Bactrim Ds] Allergies Allergy/AdvReac Type Severity Reaction Status Date / Time No Known Drug Allergies Allergy Verified 10/11/17 15:50 Physical Examination - Ankle & Foot right Foot appearance: other (extensive swelling and pain with gangrenous discoloration to right second toe) Foot swelling: other (HEART Inspection: No cardiac heaves or lifts. Symmetrical expansion with respiration, no other wall motions. Lungs are clear to auscultation and percussion bilaterally) Assessment and Plan (1) Osteomyelitis of toe Status: Acute Comment: right second toe amputation today
[2017-10-12] MEDS: HEPARIN 5,000 UNIT/ML VIAL SQ SCH ×2 (09:42→20:40)
[2017-10-12] MEDS ORDERED: LACTATED RINGERS 250 ML IV PRN (13:05)
[2017-10-12] MEDS ORDERED: IPRATROPIUM/ALBUTEROL 3 ML AMPUL.NEB NEB PRN (13:05)
[2017-10-12] MEDS ORDERED: BENZOCAINE/MENTHOL 1 LOZENGE PO PRN (13:05)
[2017-10-12] MEDS ORDERED: PROMETHAZINE 25 MG/ML VIAL IV PRN (13:05)
[2017-10-12] MEDS ORDERED: NALOXONE HCL 0.4 MG/ML VIAL IV PRN ×2 (13:05→15:52)
[2017-10-12] MEDS ORDERED: diphenhydrAMINE 50 MG/ML VIAL IV PRN (13:05)
[2017-10-12] MEDS ORDERED: ACETAMINOPHEN 1,000 MG/100 ML BOTTLE IV ONE (13:05)
[2017-10-12] MEDS ORDERED: MEPERIDINE 25 MG/ML SYRINGE IV PRN (13:05)
[2017-10-12] MEDS ORDERED: FLUMAZENIL 0.1 MG/ML ML IV PRN (13:05)
[2017-10-12] MEDS ORDERED: ONDANSETRON 4 MG/2 ML VIAL IV PRN ×2 (13:05→15:52)
[2017-10-12] MEDS ORDERED: fentaNYL 100 MCG/2 ML VIAL IV PRN (13:05)
[2017-10-12] MEDS ORDERED: LACTATED RINGERS 1,000 ML IV SCH (13:15)
[2017-10-12] MEDS ORDERED: MIDAZOLAM 5 MG/5 ML VIAL IV ONE (14:00)
[2017-10-12] MEDS ORDERED: PHENYLEPHRINE 10 MG/ML VIAL IV ONE (14:00)
[2017-10-12] MEDS ORDERED: DEXAMETHASONE 4 MG/ML VIAL IV ONE (14:00)
[2017-10-12] MEDS ORDERED: ONDANSETRON 4 MG/2 ML VIAL IV ONE (14:00)
[2017-10-12] MEDS ORDERED: LIDOCAINE HCL/PF 100 MG/5 ML SYRINGE IV ONE (14:00)
[2017-10-12] MEDS ORDERED: fentaNYL 100 MCG/2 ML VIAL IV ONE (14:00)
[2017-10-12] MEDS ORDERED: PROPOFOL 200 MG/20 ML VIAL IV ONE (14:00)
[2017-10-12] MEDS ORDERED: BUPIVACAINE 0.5% 50 ML VIAL IJ ONE (14:15)
[2017-10-12] MEDS ORDERED: oxyCODONE/APAP 5/325MG TABLET PO PRN (15:52)
[2017-10-12] MEDS ORDERED: ACETAMINOPHEN 325 MG TABLET PO PRN (15:52)
[2017-10-12] MEDS ORDERED: DEXTROSE 50% 50 ML VIAL IV PRN (15:52)
[2017-10-12] MEDS ORDERED: VANCOMYCIN PER PHARMACY IV SCH (15:52)
[2017-10-12] MEDS ORDERED: DEXTROSE 31 GM ORAL.SUSP PO PRN (15:52)
[2017-10-12] MEDS: 0.9 % SODIUM CHLORIDE 1,000 ML IV SCH ×2 (16:05→17:57)
--- NOTE | 2017-10-12 16:07 | Brief Operative Note ---
Date of procedure: 10/12/17 Pre-op diagnosis: ostiomyelitis right second toe Post-op diagnosis: same Procedure: amputation right second toe Grafts/Implants: No Anesthesia: PAULINEA Surgeon: Guanaco Teague Estimated blood loss (cc): 20 Specimens Removed/Pathology: other (culture and gross specimen right second toe) Condition: stable Disposition: floor
--- NOTE | 2017-10-12 16:25 | Operative Note ---
DATE OF OPERATION: 10/12/2017 PREOPERATIVE DIAGNOSIS: Osteomyelitis, right second toe. POSTOPERATIVE DIAGNOSIS: Osteomyelitis, right second toe. PROCEDURE: Amputation, right second toe. SURGEON: Guanaco Teague DPM. IMPLANTS: None. ANESTHESIA: GETA. ESTIMATED BLOOD LOSS: 20 mL. SPECIMENS: Right second toe gross and culture. DISPOSITION: Floor. PROCEDURE IN DETAIL: The patient was brought to the operating room and placed on the operating table in supine position. GETA initiated. The right lower extremity was scrubbed, prepped and draped in the usual aseptic manner. A total of 10 mL 0.5% Marcaine plain infiltrated proximal in the right second digit at the second metatarsal. A tennis racquet incision was placed. The toe was noted to be grossly malodorous, necrotic, gangrenous, and full of purulent drainage. The toe was then disarticulated at the metatarsal phalangeal joint, completely passed for gross and culture. The area was irrigated with copious amounts of sterile saline. There was noted to be no signs of purulent material or violation of the metatarsal head. Therefore, it was closed with 4-0 Vicryl to the deep layer and 4-0 nylon in a simple and horizontal interrupted suture fashion. Xeroform, 4 x 4 gauze, Kerlix, and Chapito wrap for dressings. The patient was then transferred back to the floor with vital signs stable and vascular status intact to the foot. He will continue to receive intravenous antibiotic therapy pending culture results as well. [email or web address] Job ID: [id number] Doc ID: [id number] Guanaco Teague DPM
--- NOTE | 2017-10-12 20:20 | Internal Med Progress Note ---
Medical - PN: Subj Patient information: Note initiated : 10/12/17 at 8:18 pm Service Date, if different from initiated Date: [] Patient: Nicholas Teague 37 y/o M admitted on 10/11/17 for Diabetic Ulcer, Rash/ Osteomyelitis, Gangrene. Chief Complaint: [] Interval history: Mr. Teague is a 37 year old Male with h/o dm, recent left 2nd toe amputation, presents to the with pain and redness in the right second toel Patient notes that the right second toe has been chronically rubbing on the right first toe, he noted that the tip of the nail started to fall off approximately 2 weeks ago, that was associated swelling and redness. He was seen for that reason in the emergency room last , he was started on oral Bactrim and advised to follow-up with wound care clinic. The patient notes that his condition worsened since then and he will came back again. He notes that there is increased redness and warmth in the right foot. In the emergency room patient's vital signs are stable's, labs showed leukocytosis, x-ray of the foot shows osteomyelitis of the second toe as well as gangrene in the second toe. Dr. Teague the hydrogenation operator for the patient wants patient to be admitted to the hospital for further management, plan for amputation of the toe tomorrow. The patient notes that after he left the emergency room, he developed a rash on his skin involving his lower extremities back in the upper extremity it was itching and initially felt like urticaria. This rash has now slowly been improving. He is not sure if he received any IV medications, on reviewing his chart it seems he did not get any IV medications. He was discharged on Bactrim. He is still taking the Bactrim and despite taking this medication the rash seems to be improving. 10/12 Pt seen exaimined, no acute overnight issues, surgery to be done today, no complaints Pertinent ROS: Denies headache, dizziness Denies chest pain, palpitations Denies cough or shortness of breath Denies abdominal pain, nausea or vomiting. - Constitutional Vitals: Vital Signs Temp Pulse Resp BP Pulse Ox 99.0 F H 71 14 116/68 96 10/12/17 15:05 10/12/17 17:16 10/12/17 15:38 10/12/17 17:16 10/12/17 17:16 Period Temp Pulse Resp BP Sys/Santoro Pulse Ox Last 24 Hr 98.1 F-99.5 F 71-87 14-22 96-135/59-84 91-100 Intake and Output 10/12/17 10/12/17 10/12/17 05:59 13:59 21:59 Intake Total 2049 606 / 606 2646 / 2646 Output Total 625 / 625 650 / 650 850 / 850 Balance 1425 / 1425 -44 / -44 1796 / 1796 Intake & Output: Intake & Output 10/12/17 10/12/17 10/12/17 05:59 13:59 21:59 Intake Total 2049 606 / 606 2646 / 2646 Output Total 625 / 625 650 / 650 850 / 850 Balance 1425 / 1425 -44 / -44 1796 / 1796 Intake: IV 50 / 50 606 / 606 1156 / 1156 Cleocin 900 mg In Dextrose 5% 56 / 56 56 / 56 in Water 50 ml @ 100 mls/hr IV Q8H RAYNA Rx#:[id number] Zosyn 3.375 gm In Dextrose 5% 50 / 50 50 / 50 in Water 50 ml @ 100 mls/hr IV Q8H RAYNA Rx#:[id number] Vancomycin 1,500 mg In Sodium 500 / 500 Chloride 0.9% 500 ml @ 333.3 mls/hr IV Q24H RAYNA Rx#: [id number] Oral 2000 / 2000 240 / 240 IV - Manual Only 1250 / 1250 Output: Void Amount 625 / 625 650 / 650 800 / 800 Estimated Blood Loss 50 / 50 Other: Meal spaghetti, chicken, chips, cheese, lorenzo dip Dinner Percent of Meal Consumed 100% 100% Feeding Ability Independent Independent # Voids 1 Exam: Constitutional; Afebrile, cooperative, alert, not in distress. Eyes- No icterus, , No periorbital swelling Ears- Ext ear normal, hearing normal to conversation. Neck- Midline trachea, supple Respiratory system: Air Entry equal on both sides, No crackles or wheezing, no rhonchi. CVS- Rate rhythm regular, S1,S2 heard, no gallop, no rub. Abdomen- Soft nontender abdomen, no organomegaly, no tenderness, no guarding or rigidity, BOTTOM BLEACHER- AOOx3, moving all extremities, no gross focal deficit noted. Medical - PN: Obj Da - Labs CBC & Chem 7: 10/12/17 06:25 10/12/17 06:25 Labs: Abnormal Lab Results 10/12/17 10/12/17 10/11/17 06:25 06:25 17:18 WBC 13.4 H RBC 3.55 L Hgb 9.6 L Hct 29.5 L Gran # 8.5 H Creatinine 1.3 H Glucose 177 H 221 H Calcium 8.5 L Globulin 3.8 H Albumin/Globulin Ratio 0.9 L 0.9 L Triglycerides 223 H 10/11/17 16:10 WBC 14.3 H RBC 4.03 L Hgb 11.0 L Hct 33.4 L Gran # 10.3 H Creatinine Glucose Calcium Globulin Albumin/Globulin Ratio Triglycerides Meds: Medications Acetaminophen (Tylenol) 650 mg PO Q6HP PRN PRN Reason: PAIN/FEVER > 101 Dextrose (Dextrose 50%) 0 ml IV UD PRN PRN Reason: Hypoglycemia Diagnostic Test (Pha) (Accu-Chek) 1 each FS ACHS [facility] Last Admin: 10/12/17 20:16 Dose: 1 each Glucose (Insta-Glucose) 15 gm PO PRN PRN PRN Reason: Hypoglycemia Heparin Sodium (Porcine) (Heparin) 5,000 unit SQ Q12 [facility] Hydromorphone HCl (Dilaudid) 0.5 mg IV Q2HP PRN PRN Reason: PAIN LEVEL > 6 Sodium Chloride (Sodium Chloride 0.9%) 1,000 mls @ 75 mls/hr IV .[id number] [facility] Last Admin: 10/12/17 17:57 Dose: 75 mls/hr Piperacillin Sod/Tazobactam (Sod 3.375 gm/ Dextrose) 50 mls @ 100 mls/hr IV Q8H [facility] Vancomycin HCl 1,500 mg/ (Sodium Chloride) 500 mls @ 333.3 mls/hr IV Q24H [facility] Insulin Human Lispro (Humalog) 0 unit SQ ACHS [facility] PRN Reason: Protocol Last Admin: 10/12/17 17:55 Dose: 3 unit Naloxone HCl (Narcan) 0.1 mg IV Q2MIN PRN PRN Reason: Opiate Reversal Ondansetron HCl (Zofran) 4 mg IV Q6HP PRN PRN Reason: Nausea And Vomiting Oxycodone/Acetaminophen (Percocet 5-325 Mg) 1 tab PO Q4HP PRN PRN Reason: PAIN LEVEL 3-6 Last Admin: 10/12/17 18:45 Dose: 1 tab Sodium Chloride (Saline Flush) 10 ml IV Q8 [facility] Vancomycin HCl (Vancomycin Per Pharmacy) 1 order IV UD [facility] Medical - PN: A/P - Time Spent With Patient Total time spent is greater than 50% in coordination of care (as documented) at patient's floor/unit and/or counseling patient: - Narrative A/P Narrative: A/P Osteomyelitis Gangrene Cellulititis/ sepsis syndrome Diabetes Drug reaction/ vs skin rash Plan acontinue to monitor s/p surgery today as per podiatry all infected material removed will plan for D/C in AM, Full code.
[2017-10-12] MEDS: HYDROmorphone 2 MG/ML VIAL IV PRN (22:27)
[2017-10-13] MEDS: PIPERACILLIN SODIUM/TAZOBACTAM 3.375 GM in DEXTROSE 5% IN WATER 50 ML IV SCH (05:57)
[2017-10-13] MEDS: 0.9 % SODIUM CHLORIDE 1,000 ML IV SCH ×2 (06:40→08:54)
[2017-10-13] MEDS: 0.9 % SODIUM CHLORIDE 10 ML SYRINGE IV SCH (06:41)
[2017-10-13] MEDS: INSULIN LISPRO 1 UNIT/0.01 ML UNIT SQ SCH ×2 (07:47→11:24)
[2017-10-13] MEDS: HYDROmorphone 2 MG/ML VIAL IV PRN (08:54)
[2017-10-13] MEDS: HEPARIN 5,000 UNIT/ML VIAL SQ SCH (08:54)
[2017-10-13 09:39] LABS: Basophils # (Auto) 0.1 K/mcL (0.0-0.3); Basophils % (Auto) 0.7 % (0.0-2.0); Eosinophils # (Auto) 0.1 K/mcL (0.0-0.7); Eosinophils % (Auto) 0.9 % (0.0-7.0); Granulocytes % (Auto) 68.4 % (38.0-78.0); Lymphocytes # (Auto) 3.1 K/mcL (1.5-4.8); Lymphocytes % (Auto) 24.2 % (15.5-49.0); Mean Corpuscular HGB Conc 33.4 g/dL (31.0-36.0); Mean Corpuscular Hemoglobin 27.4 pg (26.0-34.0); Monocytes # (Auto) 0.7 K/mcL (0.1-0.9); Monocytes % (Auto) 5.8 % (1.0-12.0); Platelet Count 301 K/mcL (140-440); RBC 3.67 M/mcL (4.50-5.90); Red Cell Distribution Width 12.2 % (11.5-14.5)
[2017-10-13 09:53] LABS: ALT/SGPT 17 U/l (0-40); Albumin 3.3 gm/dL (3.2-5.2); Albumin/Globulin Ratio 0.9 (1.0-2.3); Alkaline Phosphatase 84 U/L (39-117); Bilirubin,Direct < 0.2 mg/dL (0.0-0.3); Blood Urea Nitrogen 12 mg/dl (6-20); Gamma Glutamyl Transpeptidase 36 U/L (8-61); Uric Acid 4.1 mg/dL (2.5-8.0)
[2017-10-13] MEDS ORDERED: VANCOMYCIN 1,500 MG in 0.9 % SODIUM CHLORIDE 500 ML IV SCH (10:00)
--- NOTE | 2017-10-13 11:12 | Discharge Summary ---
Medical - DS: Prov Patient information: Note initiated : 10/13/17 at 11:09 am Service Date, if different from initiated Date: [] Patient: Nicholas Teague 37 y/o M admitted on 10/11/17 for Diabetic Ulcer, Rash/ Osteomyelitis, Gangrene. Chief Complaint: [] Date of admission: 10/11/17 19:05 Discharge date: 10/13/17 Primary care physician: Car Rosado Admitting clinician: Makenzie Parikh Consults: 10/11/17 17:17 Consult to Physician [CONS] Stat Comment: Consulting Provider: Adilia Sanchez Reason For Exam: Physician to Consult 10/11/17 17:19 Consult to Physician [CONS] Stat Comment: Consulting Provider: Makenzie Parikh Reason For Exam: Physician to Consult 10/11/17 19:05 Consult to Physician [CONS] Stat Comment: Consulting Provider: Matt Teaguel Reason For Exam: Physician to Consult Discharging clinician: Makenzie Parikh Medical - DS: Meds - Discharge Medications Prescriptions: Levofloxacin [Levaquin] 750 mg PO DAILY #14 tab Active and Home Medications: Home Medications Accu-Chek 1 each FS ACHS strip 02/13/17 [Rx Confirmed 10/11/17 Last Taken Unknown] gabapentin 300 mg capsule 300 mg PO TID #90 cap 10/02/17 [Rx Confirmed 10/11/17 Last Taken Unknown] hydrocodone 10 mg-acetaminophen 325 mg tablet 1 tab PO QID #120 tab 10/02/17 [ Rx Confirmed 10/11/17 Last Taken Unknown] insulin glargine (U-300) 300 unit/mL (1.5 mL) subcutaneous pen 45 unit SUB-Q QAM #4.5 ml 10/02/17 [Rx Confirmed 10/11/17 Last Taken Unknown] lisinopril 20 mg tablet 40 mg PO HS #60 tab 10/02/17 [Rx Confirmed 10/11/17 Last Taken Unknown] quetiapine 300 mg tablet 600 mg PO HS 90 Days #180 tab 10/02/17 [Rx Confirmed Last Taken Unknown] simvastatin 40 mg tablet 40 mg PO HS #90 tab 10/02/17 [Rx Confirmed 10/11/17 Last Taken Unknown] Sulfamethoxazole/Trimethoprim [Bactrim Ds] 1 tab PO BID #20 tab 10/05/17 [Rx Confirmed 10/11/17 Last Taken Unknown] Medical - DS: Hosp Hospital course: liya Teague is a 37 year old Male with h/o dm, recent left 2nd toe amputation, presents to the with pain and redness in the right second toe, Patient notes that the right second toe has been chronically rubbing on the right first toe, he noted that the tip of the nail started to fall off approximately 2 weeks ago , that was associated swelling and redness. He was seen for that reason in the emergency room last , he was started on oral Bactrim and advised to follow-up with wound care clinic. The patient notes that his condition worsened since then and he will came back again. He notes that there is increased redness and warmth in the right foot. In the emergency room patient's vital signs are stable's, labs showed leukocytosis, x-ray of the foot shows osteomyelitis of the second toe as well as gangrene in the second toe. Dr. Teague the vineyardist for the patient wants patient to be admitted to the hospital for further management, plan for amputation of the toe tomorrow. Patient was seen by Dr. Teague, who reviewed the patient's condition and advised to amputation. The patient underwent to amputation successfully. The patient had no complications post surgery. The patient will be seen by Dr. Teague in the clinic I believe on Monday for follow-up and dressing change. Patient's microbiology grew staph aureus and methicillin-resistant staph aureus sensitive to levofloxacin. Patient will continue levofloxacin for 2 weeks. all infected material was removed as per the surgeon, The patient had developed skin rash, secondary to use of bactrim? not sure, but the rash is improving, should the rash worsen again, it would be prudent to consider a biopsy. will defer management to PCP Discharge diagnosis: infected 2nd toe? gangrene osteomyelitis - Time Spent with Patient Total time spent providing and/or coordinating discharge services: Greater than 30 minutes Medical - DS: Exam - Constitutional Vitals: Vital Signs Temp Pulse Pulse Resp BP BP Pulse Ox 10/13/17 08:00 98.0 F 92 H 18 112/72 95 10/13/17 02:57 97.9 F 84 18 149/88 98 10/12/17 23:43 97.9 F 87 18 134/80 97 10/12/17 20:47 98.2 F 93 H 14 131/76 98 10/12/17 17:16 71 116/68 96 10/12/17 16:46 78 100/64 96 10/12/17 16:16 82 122/84 94 10/12/17 16:01 78 112/82 93 10/12/17 15:46 74 115/76 94 10/12/17 15:38 73 14 94 10/12/17 15:31 75 111/71 91 10/12/17 15:18 73 105/70 92 10/12/17 15:05 99.0 F H 79 17 130/67 94 10/12/17 14:55 80 16 135/75 98 10/12/17 14:37 99.5 F H 83 83 18 96/59 110/69 100 10/12/17 12:00 98.4 F 78 16 113/70 99 Intake and Output 10/12/17 10/13/17 10/13/17 21:59 05:59 13:59 Intake Total 2646 / 2646 860 / 860 1050 / 1050 Output Total 1500 / 1500 1875 / 1875 Balance 1146 / 1146 -1015 / -1015 1050 / 1050 Intake: IV 1156 / 1156 50 / 50 1050 / 1050 Sodium Chloride 0.9% 1,000 ml @ 1000 / 1000 75 mls/hr IV .[id number] RAYNA Rx#: [id number] Cleocin 900 mg In Dextrose 5% 56 / 56 in Water 50 ml @ 100 mls/hr IV Q8H RAYNA Rx#:[id number] Zosyn 3.375 gm In Dextrose 5% 50 / 50 50 / 50 in Water 50 ml @ 100 mls/hr IV Q8H RAYNA Rx#:[id number] Oral 240 / 240 810 / 810 IV - Manual Only 1250 / 1250 Output: Void Amount 1450 / 1450 1875 / 1875 Estimated Blood Loss 50 / 50 Other: Meal Dinner Percent of Meal Consumed 100% Feeding Ability Independent # Voids 1 1 Weight 236 lb Additional comments: Constitutional; Afebrile, cooperative, alert, not in distress. Eyes- No icterus, , No periorbital swelling Ears- Ext ear normal, hearing normal to conversation. Neck- Midline trachea, supple Respiratory system: Air Entry equal on both sides, No crackles or wheezing, no rhonchi. CVS- Rate rhythm regular, S1,S2 heard, no gallop, no rub. Abdomen- Soft nontender abdomen, no organomegaly, no tenderness, no guarding or rigidity, REGIONAL MAINTENANCE MANAGER- AOOx3, moving all extremities, no gross focal deficit noted. Medical - DS: Data Labs on day of discharge: Labs from last 24 hours 10/13/17 10/13/17 10/13/17 09:04 09:04 09:04 WBC 12.7 H RBC 3.67 L Hgb 10.1 L Hct 30.1 L MCV 82.0 MCH 27.4 MCHC 33.4 RDW 12.2 Plt Count 301 MPV 9.0 Gran % 68.4 Lymph % (Auto) 24.2 [place] % (Auto) 5.8 Eos % (Auto) 0.9 Baso % (Auto) 0.7 Gran # 8.7 H Lymph # (Auto) 3.1 [place] # (Auto) 0.7 Eos # (Auto) 0.1 Baso # (Auto) 0.1 Sodium 136 Potassium 4.3 Chloride 99 Carbon Dioxide 27 Anion Gap 10.0 BUN 12 Creatinine 1.0 GFR Calculation 94 Glucose 224 H Uric Acid 4.1 Calcium 9.0 Phosphorus 2.5 L Magnesium 1.9 Total Bilirubin 0.2 Direct Bilirubin < 0.2 GGT 36 AST 10 ALT 17 Alkaline Phosphatase 84 Lactate Dehydrogenase 104 Total Protein 6.9 Albumin 3.3 Globulin 3.6 Albumin/Globulin Ratio 0.9 L Triglycerides 209 H Vancomycin Trough 4.9 Preliminary micro results at discharge 10/12/17 14:18 Wound Culture - Preliminary Foot - Right 10/11/17 16:18 Blood Culture - Preliminary Blood 10/11/17 16:10 Blood Culture - Preliminary Blood Medical - DS: A/P - Patient/Caregiver Discharge Instructions Activity: increase activity as tolerated (weight bearing instructions as per Dr Teague. ) Diet: Consistent Carbohydrate Additional Instructions: Take antibiotics for 2 weeks Follow up with Dr Teague on monday 10/16 for follow up and change in dressing Go to the ER if worsening condition, fever chills or any other acute concerns No changes have been done in your home med list. - Follow up Plan Follow up with: Guanaco Teague DPM [Physician] - Ostermiller,Car, PA-C [Primary Care Provider] - Disposition: Home, Self-Care Prognosis: Fair Rehab Potential: Fair I certify that the patient requires SNF services: No Overall status at discharge: patient is progressing back to baseline
--- NOTE | 2017-10-16 13:47 | Surgical Pathology Report ---
HISTOLOGY SPECIMEN MICROSCOPIC DIAGNOSIS DIGIT, RIGHT SECOND TOE, AMPUTATION: -- ULCERATED SKIN AND SOFT TISSUE WITH ASSOCIATED ISCHEMIC AND SUPPURATIVE NECROSIS (GANGRENE). -- ACUTE OSTEOMYELITIS. -- VIABLE SOFT TISSUE MARGIN FOCALLY INVOLVED BY ACUTE INFLAMMATION AND NECROSIS. -- VIABLE BONY MARGIN WITH NO EVIDENCE OF ACUTE OSTEOMYELITIS. (SE:djf) PROCEDURAL IMPRESSION Osteomyelitis of right second toe. GROSS DESCRIPTION The specimen is received as right second toe and consists of an amputated toe that measures 6.0 cm in length with a width of 2.5 cm and thickness of 2.0 cm. The bone protrudes beyond the cutaneous soft tissue margin of resection by up to 1.9 cm. The distal tip and medial aspect of the toe obliterated by a hemorrhagic ulcer that measures 2.7 x 2.5 cm in maximum dimension and is present 1.0 cm from the closest cutaneous margin of resection. The plantar aspect of the toe also has an area of hemorrhagic ulcer that measures 0.8 x 0.6 cm. The cutaneous and soft tissue margins are inked black. The inflammation associated with the underlying ulcer appears to erode the underlying bone. Sections of the distal tip including underlying bone are submitted in A1, following decalcification. Cutaneous soft tissue margins and bony margin submitted in A2, following decalcification. (ACP:kamala) Electronically Signed by: Nisha Day D.O.
== END 2017-10-13 13:12 | disposition home or self-care (01) | DRG 616 ==
LOC: ED 15:45 → MEDSUR 19:05
PROVIDERS: ADMIT Internal Medicine; ATTEND Internal Medicine